=== PATIENT | male | born 1960 | race Caucasian/White ===

== ENCOUNTER → 2019-04-17 09:32 | Outpatient (BNVA) | payer MEDICAID, SELFPAY | PROVIDERS: PCP Nurse Practitioner Family; Visit Provider Nurse Practitioner | DX: M50.020 Cervical disc disorder with myelopathy, mid-cervical region, unspecified level (principal); M43.10 Spondylolisthesis, site unspecified; F17.210 Nicotine dependence, cigarettes, uncomplicated; Z79.899 Other long term (current) drug therapy | CPT/HCPCS: 99213; 99214 ==

== ENCOUNTER → 2019-06-14 08:44 | Outpatient (BNVA) | payer MEDICAID, SELFPAY | PROVIDERS: PCP Nurse Practitioner Family; Visit Provider Nurse Practitioner | DX: M50.020 Cervical disc disorder with myelopathy, mid-cervical region, unspecified level (principal); F17.210 Nicotine dependence, cigarettes, uncomplicated; Z79.891 Long term (current) use of opiate analgesic | CPT/HCPCS: 99213 ==

== ENCOUNTER 2019-07-10 13:26 | Emergency (ER) | payer MEDICAID, SELFPAY ==
[2019-07-10 13:42] VITALS: BP 158/93; PULSE 77; RESP 17; TEMP 36.9; O2SAT 95; BMI 35.7
--- NOTE | 2019-07-10 14:05 | XR_ITS ---
WS: [id number] PORTABLE CHEST HISTORY: cough/congestion COMPARISON: 11/09/2017 Pulmonary hyperexpansion. Normal vasculature. No pneumonia. No pleural effusion or pneumothorax. Cardiac size: Normal. Mediastinum/Aorta: Pulmonary arteries are enlarged. Similar to prior studies. No osseous abnormality seen. XR/XR chest 1V portable [id number] IMPRESSION: 1. Chronic emphysema. 2. No pneumonia. 3. Pulmonary hypertension.
[2019-07-10 14:26] VITALS: BP 147/111; PULSE 75; RESP 17; O2SAT 93
--- NOTE | 2019-07-10 14:43 | ED_ITS ---
HPI - URI/Sore Throat General: Chief Complaint: Upper Respiratory Infection Stated Complaint: cough Time Seen by Provider: 07/10/19 14:32 Source: patient Mode of arrival: ambulatory Limitations: no limitations History of Present Illness: HPI Narrative: Patient is a 58-year-old male presents to ED today with complaints of a nonproductive cough over the past 3 days. In addition patient tells me he has been having sinus pain/pressure with clear nasal drainage, puffy eyes, and sneezing. Patient has no history of allergies. He is an every day smoker. He has not been running fevers. He does not complain of any shortness of breath, difficulty breathing. No chest pains. He has not had any sick contacts. [facility] but is otherwise doing well with self quarantining. Reports low-grade fevers of 99.0. MD elicited complaint: cough, rhinorrhea, nasal congestion and sinus pain Pertinent past history: other (smoking) Onset (ago): day(s) Severity: mild Able to tolerate fluids by mouth: Yes Exacerbating factors: nothing Relieving factors: nothing Associated symptoms: Reports fever(s) (reports fever of 99.0) and nasal congestion; Deny abdominal pain, chills, chest pain, diarrhea, ear or mastoid pain, headache(s), nausea or vomiting Treatments prior to arrival: none Review of Systems Const: Reports: fever (reports fever of 99.0); Denies: chills, body aches, change in appetite, change in weight, fatigue, malaise or night sweats Eyes: Reports: other (eye puffiness); Denies: change in vision, blurry vision, blind spots, photophobia, eye discharge, eye redness, floaters or seeing flashes ENMT: Reports: nasal discharge and nasal congestion; Denies: throat pain, enlarged tonsils, painful swallowing, oral sores/lesions, ear pain, ear discharge or nasal obstruction Card: Denies: chest pain, palpitations, irregular heart rhythm, edema, swelling of feet/ankles, lightheadedness, syncope, pre-syncope, shortness of breath on exertion or shortness of breath when lying down Resp: Denies: shortness of breath, productive cough, non-productive cough, coughing up blood or chest congestion GI: Denies: abdominal pain, nausea, vomiting or diarrhea Musc: Denies: neck pain or back pain Skin/Breast: Denies: rash Neuro: Denies: headache PFSH ED PFSH: Medical History (Updated 07/10/19 @ 14:59 by CAROL Pendleton) CAD (coronary artery disease) Cervical disc disorder with myelopathy of mid-cervical region Diastolic CHF Dyslipidemia HTN (hypertension) Long-term use of high-risk medication PVC (premature ventricular contraction) Smoker Spondylolisthesis Surgical History Hx of decompression of ulnar nerve RIGHT Previous back surgery LOWER BACK PLUS YEARS AGO S/P carpal tunnel release RIGHT S/P cholecystectomy Social History Smoking and tobacco status: current every day smoker cigarettes Packs smoked per day: 0.5 Alcohol intake: never Physical Exam Const: COMMON NORMALS: no apparent distress, oriented x3, no limitations and alert NUTRITIONAL APPEARANCE: overweight HENMT: COMMON NORMALS: normocephalic, head/scalp atraumatic, hearing grossly normal bilaterally, external ears normal, EAC's normal, external nose normal, nasal mucous membranes and turbinates normal, moist oral mucous membranes and oropharynx normal HEAD & SCALP: normal to inspection, normocephalic and atraumatic FACE & SINUS: sinus tenderness frontal and maxillary NOSE: external nose normal, nares normal and nasal mucous membranes and turbinates normal EXTERNAL EAR: Yes external ears normal EXTERNAL AUDITORY CANAL: EAC's normal TYMPANIC MEMBRANE: unable to visualize TM (cerumen ) MOUTH: oral and palatal mucosa normal THROAT: posterior oropharynx normal, tonsils normal and uvula midline Eye: COMMON NORMALS: PERRL and EOMs intact bilaterally PUPIL: Yes PERRL OTHER: mild bilateral infraorbital puffiness Neck/C-Spine: COMMON NORMALS: full ROM, no lymphadenopathy and no meningeal signs Resp: COMMON NORMALS: normal respiratory effort and clear to auscultation bilaterally AUSCULTATION: clear to auscultation bilaterally Cardio: COMMON NORMALS: regular rate and regular rhythm RATE: regular rate RHYTHM: regular rhythm Neuro: COMMON NORMALS: oriented x3 SENSORIUM/ORIENTATION: Yes alert MENINGEAL SIGNS: Yes no meningeal signs Skin: COMMON NORMALS: no rashes or lesions noted GENERAL SKIN EXAM: no rashes or lesions noted Course Vital Signs: Vital signs: Vital Signs Temperature 98.4 F 07/10/19 13:42 Pulse Rate 66 07/10/19 15:08 Respiratory Rate 17 07/10/19 15:08 Blood Pressure 142/87 07/10/19 15:08 Pulse Oximetry 93 07/10/19 15:08 MDM - URI/Sore Throat Imaging Data^: CXR: Radiologist's impression: [address] [address] XRay Report Signed Patient: Crow Will Unit #: [id number] : 1960 Age/Sex: 58 / M ADM Date: 07/10/19 Loc: ER Room/Bed: Attending Dr: Ordering Provider/Ordering MD: Leia Rivera Date of Service: 07/10/19 Procedure(s): XR chest 1V portable [id number] Accession Number(s): [id number] Report Number: [id number] WS: [id number] PORTABLE CHEST HISTORY: cough/congestion COMPARISON: 11/09/2017 Pulmonary hyperexpansion. Normal vasculature. No pneumonia. No pleural effusion or pneumothorax. Cardiac size: Normal. Mediastinum/Aorta: Pulmonary arteries are enlarged. Similar to prior studies. No osseous abnormality seen. XR/XR chest 1V portable [id number] IMPRESSION: 1. Chronic emphysema. 2. No pneumonia. 3. Pulmonary hypertension. Dictated By: Ioana Ramírez DO Signed By: Ioana Ramírez DO Signed Date/Time: 145 DD/ 1449 Discharge Plan Discharge Patient Disposition: Home, Self-Care Clinical Impression: Allergic rhinitis Qualifiers: Allergic rhinitis trigger: other Allergic rhinitis seasonality: seasonal Qualified Code(s): J30.89 - Other allergic rhinitis Condition: Stable Prescriptions: New Claritin 10 mg tablet 10 mg PO DAILY Qty: 30 RF: 0 No Action allopurinol 300 mg tablet 300 mg PO BID RF: 0 cyclobenzaprine 10 mg tablet 10 mg PO TID PRN (Reason: muscle spasm) Qty: 90 RF: 3 lisinopril 20 mg tablet 20 mg PO BID Qty: 60 RF: 6 metoprolol tartrate 25 mg tablet 37.5 mg PO BID Qty: 90 RF: 6 aspirin [Adult Low Dose Aspirin] 81 mg tablet,delayed release (DR/EC) 81 mg PO DAILY Qty: 30 RF: 6 furosemide 40 mg tablet 40 mg PO QAM RF: 0 isosorbide mononitrate 30 mg tablet extended release 24 hr 30 mg PO QAM RF: 0 amlodipine 5 mg tablet 5 mg PO QDAY RF: 0 nitroglycerin [Nitrostat] 0.4 mg tablet, sublingual 0.4 mg SUBLINGUAL Q5M PRNRF: 0 potassium chloride [Klor-Con M20] 20 mEq tablet,ER particles/crystals 20 meq PO QDAY RF: 0 clopidogrel 75 mg tablet 75 mg PO QDAY RF: 0 oxycodone [Roxicodone] 15 mg tablet 15 mg PO TID PRN (Reason: pain) 30 Days Qty: 90 RF: 0 oxycodone 15 mg tablet 15 mg PO TID PRN (Reason: pain) 30 Days Qty: 90 RF: 0 tramadol 50 mg tablet 50 mg PO TID PRN (Reason: pain) Qty: 90 RF: 1 Discharge Orders: Discharge Order (Routine); Ordered 07/10/19 Ordered By: Leia Rivera Referrals: ANNMARIE [Other] Jose Ramon Salguero NP [Primary Care Provider] - Patient Instructions: Allergic Rhinitis (ED) Discharge Date/Time: 07/10/19 15:08 Coding Level of Care Code ED [employer] Fwd Exam Detailed
[2019-07-10 15:08] VITALS: BP 142/87; PULSE 66; RESP 17; O2SAT 93
== END 2019-07-10 15:08 | disposition home or self-care (01) ==
PROVIDERS: Emergency Provider Physician Assistant; PCP Nurse Practitioner Family
DX: J30.89 Other allergic rhinitis (principal); Z79.82 Long term (current) use of aspirin; I25.10 Atherosclerotic heart disease of native coronary artery without angina pectoris; I11.0 Hypertensive heart disease with heart failure; I50.30 Unspecified diastolic (congestive) heart failure; E78.5 Hyperlipidemia, unspecified; F17.210 Nicotine dependence, cigarettes, uncomplicated
CPT/HCPCS: 12345; 71045; 99281; 99282

== ENCOUNTER → 2019-07-31 09:37 | Outpatient (BNVA) | payer MEDICAID, SELFPAY | PROVIDERS: PCP Nurse Practitioner Family; Visit Provider Anesthesiology | DX: M50.020 Cervical disc disorder with myelopathy, mid-cervical region, unspecified level (principal); M54.9 Dorsalgia, unspecified; F17.210 Nicotine dependence, cigarettes, uncomplicated; Z79.891 Long term (current) use of opiate analgesic; Z71.6 Tobacco abuse counseling | CPT/HCPCS: 99214 ==

== ENCOUNTER → 2019-10-15 08:50 | Outpatient (BNVA) | payer MEDICAID, SELFPAY | PROVIDERS: PCP Nurse Practitioner Family; Visit Provider Nurse Practitioner | DX: M50.020 Cervical disc disorder with myelopathy, mid-cervical region, unspecified level (principal); F17.210 Nicotine dependence, cigarettes, uncomplicated; Z79.891 Long term (current) use of opiate analgesic; Z71.6 Tobacco abuse counseling | CPT/HCPCS: 99214 ==

== ENCOUNTER → 2019-12-06 09:35 | Outpatient (BNVA) | payer MEDICAID, SELFPAY | PROVIDERS: PCP Nurse Practitioner Family; Visit Provider Anesthesiology | DX: M50.020 Cervical disc disorder with myelopathy, mid-cervical region, unspecified level (principal); M43.10 Spondylolisthesis, site unspecified; F17.210 Nicotine dependence, cigarettes, uncomplicated; Z79.891 Long term (current) use of opiate analgesic | CPT/HCPCS: 99213; 99214 ==

== ENCOUNTER → 2020-02-11 10:44 | Outpatient (BNVA) | payer MEDICAID, SELFPAY | PROVIDERS: PCP Nurse Practitioner Family; Visit Provider Anesthesiology | DX: M50.020 Cervical disc disorder with myelopathy, mid-cervical region, unspecified level (principal); M43.10 Spondylolisthesis, site unspecified; F17.210 Nicotine dependence, cigarettes, uncomplicated; Z79.891 Long term (current) use of opiate analgesic | CPT/HCPCS: 99212; 99214 ==

== ENCOUNTER → 2020-04-08 08:27 | Outpatient (BNVA) | payer MEDICAID, SELFPAY | PROVIDERS: PCP Nurse Practitioner Family; Visit Provider Nurse Practitioner | DX: M50.020 Cervical disc disorder with myelopathy, mid-cervical region, unspecified level (principal); M43.10 Spondylolisthesis, site unspecified; F17.210 Nicotine dependence, cigarettes, uncomplicated; Z79.899 Other long term (current) drug therapy; Z79.891 Long term (current) use of opiate analgesic | CPT/HCPCS: 99213 ==

== ENCOUNTER → 2020-06-09 08:43 | Outpatient (BNVA) | payer MEDICAID, SELFPAY | PROVIDERS: PCP Nurse Practitioner Family; Visit Provider Nurse Practitioner | DX: M50.020 Cervical disc disorder with myelopathy, mid-cervical region, unspecified level (principal); M43.10 Spondylolisthesis, site unspecified; F17.210 Nicotine dependence, cigarettes, uncomplicated; Z79.899 Other long term (current) drug therapy; Z79.891 Long term (current) use of opiate analgesic; Z71.6 Tobacco abuse counseling | CPT/HCPCS: 99213; 99214 ==

== ENCOUNTER → 2020-08-04 08:37 | Outpatient (BNVA) | payer MEDICAID, SELFPAY | PROVIDERS: PCP Nurse Practitioner Family; Visit Provider Anesthesiology | DX: M50.020 Cervical disc disorder with myelopathy, mid-cervical region, unspecified level (principal); M43.10 Spondylolisthesis, site unspecified; F17.210 Nicotine dependence, cigarettes, uncomplicated; Z79.899 Other long term (current) drug therapy; Z79.891 Long term (current) use of opiate analgesic | CPT/HCPCS: 99213 ==

== ENCOUNTER → 2020-10-08 11:19 | Outpatient (BNVA) | payer MEDICAID, SELFPAY | PROVIDERS: PCP Nurse Practitioner Family; Visit Provider Nurse Practitioner | DX: M50.020 Cervical disc disorder with myelopathy, mid-cervical region, unspecified level (principal); M79.602 Pain in left arm; M43.10 Spondylolisthesis, site unspecified; F17.210 Nicotine dependence, cigarettes, uncomplicated; Z79.891 Long term (current) use of opiate analgesic | CPT/HCPCS: 99213; 99214; 99406 ==

== ENCOUNTER 2020-10-21 11:29 | Outpatient (CLI) | payer MEDICAID, SELFPAY ==
--- NOTE | 2020-10-21 11:43 | CT_ITS ---
WS: [id number] Exam: CT abdomen pelvis w con* [id number] Date/Time of Exam: 10/21/2020 11:46 AM Reason For Exam: RIGHT LOWER QUADRANT PAIN DLP: 879.[address] scans at [facility] use at least one of these dose optimization techniques: automat ed exposure control; mA and/or kV adjustment per patient size (includes targeted exams where dose is matched to clinical indication); or iterative reconstruction. There are 2 noncalcified soft tissue nodules both measuring slightly over 6 mm in the lateral aspect of the left lower lobe. The anterior most nodule is pleural-based. These are stable when compared to CTA of the chest performed on 10/26/2017 The right lung base is clear. Fatty liver is noted. The gallbl adder is surgically absent. The spleen is small. The stomach and pancreas appear normal. Normal adren al glands and kidneys. The abdominal aorta is normal in caliber. The portal vein and IVC are patent. No free air. No lymphadenopathy. Normal appendix visualized. Small bowel loops are normal in caliber. No significant large bowel abnormality is seen. No mass or adenopathy in the pelvis. The urinary eda dder is intact. No destructive bone lesions are seen. No significant abdominal wall defect. CT/CT abdomen pelvis w con* [id number] IMPRESSION: 1. 2 noncalcified nodules in the left lower lobe that are stable in appearance when compared to prior imaging. 2. No mass, lymphadenopathy or acute finding in the abdomen or pelvis. 3. Normal appendix.
[2020-10-21] MEDS: iohexol 300 mg/mL 50 mL Btl PO (11:46)
[2020-10-21] MEDS: iohexol 300 mg/mL 100 mL Btl IV (13:09)
== END 2020-10-21 11:30 | disposition home or self-care (01) ==
LOC: RADWPI 11:34
PROVIDERS: PCP Nurse Practitioner Family; Visit Provider Nurse Practitioner Family
DX: R10.31 Right lower quadrant pain (principal); R91.8 Other nonspecific abnormal finding of lung field
CPT/HCPCS: 74177; Q9967

== ENCOUNTER → 2020-12-10 13:11 | Outpatient (BNVA) | payer MEDICAID, SELFPAY | PROVIDERS: PCP Nurse Practitioner Family; Visit Provider Nurse Practitioner | DX: G89.29 Other chronic pain (principal); M50.020 Cervical disc disorder with myelopathy, mid-cervical region, unspecified level; M50.90 Cervical disc disorder, unspecified, unspecified cervical region; M43.10 Spondylolisthesis, site unspecified; R20.0 Anesthesia of skin; F17.200 Nicotine dependence, unspecified, uncomplicated; Z79.891 Long term (current) use of opiate analgesic; Z71.6 Tobacco abuse counseling | CPT/HCPCS: 99214 ==

== ENCOUNTER 2020-12-29 15:41 | Outpatient (CLI) | payer MEDICAID, SELFPAY ==
--- NOTE | 2020-12-29 16:00 | MR_ITS ---
WS: [id number] MRI CERVICAL SPINE NONCONTRAST HISTORY: Neck injury with pain and numbness RIGHT arm. COMPARISON: 12/16/2016 Technique: Multiplanar, multisequence noncontrast imaging of the cervical spine. Mild reversal normal cervical lordosis centered at C4. There is a small amount of reactive degenerati ve marrow edema in the RIGHT lateral endplates of C5 and C6. Disc spaces are very mildly desiccated, most significant at C5-C6. Signal within the cord is normal. Craniocervical junction, C1 and C2 relationship, odontoid process and soft tissues are normal. C2-C3: Normal. C3-C4: Less than 2 mm anterolisthesis of C3. Very mild narrowing of the foramen. No significant steno sis. C4-C5: Small foraminal osteophytes with very mild foraminal narrowing. No significant stenosis. C5-C6: Diffuse annular disc bulging and osteophytic ridging. Disc and osteophytes extend into the for amen bilaterally. There is mild encroachment and deformity of the ventral cervical cord and mild bila teral facet joint arthritis. Mild central with moderate bilateral foraminal narrowing. C6-C7: Mild annular disc bulging and osteophytic ridging. Central to RIGHT paracentral disc protrusio n without contact on the RIGHT thecal sac. Very mild central and RIGHT foraminal stenosis. Mild RIGHT facet joint arthritis. C7-T1: Normal. Paraspinal soft tissue are normal. MR/MR cervical spin wo con* [id number] IMPRESSION: 1. Moderate degenerative disc disease at C5-6 with reactive marrow edema in th e RIGHT lateral vertebral bodies. 2. Mild central with moderate bilateral foraminal stenosis at C5-6 with mild d eformity of the ventral cord by disc and osteophyte disease. 3. Central to RIGHT paracentral disc protrusion at C6-7 with mild central and RIGHT foraminal stenosis.
== END 2020-12-29 15:42 | disposition home or self-care (01) ==
LOC: RADSHAW 15:44
PROVIDERS: PCP Nurse Practitioner Family; Visit Provider Nurse Practitioner
DX: M50.322 Other cervical disc degeneration at C5-C6 level; R20.0 Anesthesia of skin; M48.02 Spinal stenosis, cervical region; M50.223 Other cervical disc displacement at C6-C7 level
CPT/HCPCS: 72141

== ENCOUNTER → 2021-02-10 12:32 | Outpatient (BNVA) | payer MEDICAID, SELFPAY | PROVIDERS: PCP Nurse Practitioner Family; Visit Provider Anesthesiology | DX: M50.020 Cervical disc disorder with myelopathy, mid-cervical region, unspecified level (principal); M43.10 Spondylolisthesis, site unspecified; F17.200 Nicotine dependence, unspecified, uncomplicated; Z79.891 Long term (current) use of opiate analgesic; Z79.899 Other long term (current) drug therapy; Z79.1 Long term (current) use of non-steroidal anti-inflammatories (NSAID) | CPT/HCPCS: 99213 ==

== ENCOUNTER → 2021-02-25 15:42 | Outpatient (BNVA) | payer MEDICAID, SELFPAY | PROVIDERS: PCP Nurse Practitioner Family; Visit Provider Orthopaedic Surgery | DX: M54.2 Cervicalgia (principal) | CPT/HCPCS: 72050 ==

== ENCOUNTER → 2021-04-09 13:36 | Outpatient (BNVA) | payer MEDICAID, SELFPAY | PROVIDERS: PCP Nurse Practitioner Family; Visit Provider Anesthesiology | DX: M50.020 Cervical disc disorder with myelopathy, mid-cervical region, unspecified level (principal); M47.22 Other spondylosis with radiculopathy, cervical region; M43.10 Spondylolisthesis, site unspecified; F17.200 Nicotine dependence, unspecified, uncomplicated; Z79.891 Long term (current) use of opiate analgesic; Z79.899 Other long term (current) drug therapy | CPT/HCPCS: 99213 ==

== ENCOUNTER 2021-04-21 12:37 | Emergency (ER) | payer MEDICAID, SELFPAY ==
[2021-04-21] VITALS (8 sets, daily range): BP systolic 110–145; BP diastolic 81–108; PULSE 69–89; RESP 16–22; TEMP 36.9; O2SAT 92–97; BMI 39.5
--- NOTE | 2021-04-21 12:58 | XR_ITS ---
WS: [id number] PORTABLE CHEST HISTORY: chest pain COMPARISON: 07/10/2019 Mild pulmonary hyperexpansion. There are scattered granulomata which are stable. No new mass or nodul e. There is very mild haziness over both lungs which is also present on the prior study related to ch ronic interstitial lung disease or mild chronic fluid overload. No pleural effusion or pneumothorax. Cardiac size: Normal. Mediastinum/Aorta: Mild atherosclerosis aorta. Ectatic thoracic aorta. Dilated RIGHT pulmonary artery . No osseous abnormality seen. XR/XR chest 1V portable [id number] IMPRESSION: 1. Chronic interstitial lung disease. No pneumonia. 2. Pulmonary hypertension.
--- NOTE | 2021-04-21 12:58 | ECG_ITS ---
[facility] Test Date: 2021-04-21 Pat Name: Crow Will Department: Room: Gender: Male Uniformer: : 1960 Requested By: Leia Rivera Order Number: [id number] Kevin MD: Jose R Rico M.D. 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 [email or web address]
[2021-04-21 14:14] LABS: Basophils # 0.1 10^3/uL (0.0-0.1); Basophils % 0.6 %; Eosinophils # 0.2 10^3/uL (0.0-0.8); Eosinophils % 1.4 %; Hematocrit 52.7 % (42.0-52.0); Hemoglobin 18.5 g/dL (11.7-16.6); Lymphocytes # 2.1 10^3/uL (0.8-4.8); Lymphocytes % 18.7 %; Mean Corpuscular HGB Conc 35.1 g/dL (30.0-36.0); Mean Corpuscular Hemoglobin 34.3 pg (28.0-34.0); Mean Corpuscular Volume 97.8 fl (80-94); Mean Platelet Volume 9.4 fL (7.4-10.4); Monocytes # 0.9 10^3/uL (0.2-0.9); Monocytes % 8.2 %; Neutrophils # 7.85 10^3/uL (1.8-7.7); Neutrophils % 70.7 %; Nucleated Red Blood Cells % 0 %; Platelet Count 271 10^3/cmm (130-400); Red Blood Count 5.39 10^6/uL (4.1-5.3); Red Cell Distribution Width 15.2 % (12.1-15.1); White Blood Count 11.1 10^3/uL (4.0-10.0)
[2021-04-21 14:40] LABS: Troponin(5th) Baseline 15 ng/L (0-15)
[2021-04-21 14:48] LABS: Alanine Aminotransferase 18 U/L (0-41); Albumin Level 3.8 g/dL (3.5-5.2); Alkaline Phosphatase 98 IU/L (40-130); Anion Gap 15.5 (5-19); Aspartate Amino Transferase 16 U/L (0-40); Blood Urea Nitrogen 11 mg/dL (8-23); Calcium 9.2 mg/dL (8.5-10.5); Carbon Dioxide 32 mmol/L (22-29); Chloride 96 mmol/L (98-107); Glomerular Filtration Rate 86.1 mL/min (90-130); Glucose 88 mg/dL (65-115); NT Pro B Type Natriuretic Pept 540 pg/mL (0-125); Osmolality Calculated 289 mOsm/kg (285-295); Potassium 3.5 mmol/L (3.5-5.1); Sodium 140 mmol/L (136-145); Total Bilirubin 0.5 mg/dL (0.15-1.2); Total Protein 6.8 g/dL (6.6-8.7)
--- NOTE | 2021-04-21 15:26 | ED_ITS ---
HPI - SOB/Dyspnea General: Chief Complaint: Shortness of Breath/Dyspnea Stated Complaint: HISTORY OF CHF, SOB, COUGH, CP Time Seen by Provider: 04/21/21 14:42 Source: patient Mode of arrival: ambulatory Limitations: no limitations History of Present Illness: HPI Narrative: This patient was a known history of coronary artery disease presents to our emergency department with a history of feeling more short winded over the past several days. He is also noted some blood tinged sputum from time to time. He is also noted swelling of his lower extremities. He states he thinks he has had less urine output over the last few days despite taking his normal doses of furosemide. He states he is able to lie flat in bed but does feel more short of breath with activity. He denies any consistent chest pain of his occasionally has couple of twinges of chest pain over the last couple of days but none of which have awoken him from sleep and none of which which feel like that which he had when he had his UT. He has been taking all his medications faithfully. He did have a preceding illness with some body aches and chills and then some nausea vomiting and diarrhea but that has resolved. [place] He is not been exposed to any known infectious disease. He still continues to smoke tobacco. He is unimmunized against COVID-19, influenza as we ll as has not received Pneumovax. He had a prior cholecystectomy as well as a lumbar fusion. MD elicited complaint: shortness of breath and cough Pertinent past history: COPD Context: recent illness Timing: intermittent Exacerbating factors: exertion Associated symptoms: Reports hemoptysis; Deny abdominal pain, fever(s), nausea, palpitations, polydipsia, polyuria, syncope or vomiting Related Data: Home oxygen amount: none Review of Systems Const: Denies: fever(s), chills or body aches Eyes: Denies: change in vision ENMT: Denies: throat pain or odynophagia Card: Reports: swelling of feet/ankles and dyspnea on exertion; Denies: palpitations, irregular heart rhythm or syncope Resp: Reports: dyspnea, wheezing and hemoptysis GI: Denies: abdominal pain, nausea, vomiting, hematemesis, hematochezia or melena : Denies: flank pain, difficulty urinating, dysuria or urinary frequency Skin/Breast: Denies: rash or erythema Neuro: Denies: headache(s), numbness in extremities or weakness in extremities Psych: Denies: depression or mood swings Endo: Denies: polyuria, polydipsia or tired all the time Jacob/Lymph: Reports: easy bruising PFSH ED PFSH: Medical History (Updated 04/21/21 @ 19:34 by Rl Earl DO) CAD (coronary artery disease) Cervical disc disorder with myelopathy of mid-cervical region Diastolic CHF Dyslipidemia Encounter for long-term opiate analgesic use HTN (hypertension) Long-term use of high-risk medication PVC (premature ventricular contraction) Smoker Spondylolisthesis Surgical History Hx of decompression of ulnar nerve RIGHT Previous back surgery LOWER BACK PLUS YEARS AGO S/P carpal tunnel release RIGHT S/P cholecystectomy Family History Other Lupus Rheumatoid arthritis Social History Alcohol intake: never History of recent travel: No Physical Exam Narrative: EXAM NARRATIVE: Patient appears comfortable. He is cooperative. He appears to be in no acute distress and answers questions in a goal-directed fashion without any conversat ional dyspnea. Const: COMMON NORMALS: no acute distress, patient oriented x3 and healthy appearing GENERAL APPEARANCE: comfortable HENMT: COMMON NORMALS: normocephalic HEAD & SCALP: normocephalic FACE & SINUS: normal facial exam Eye: COMMON NORMALS: Equal, round and reactive pupils present, EOMs intact bilaterally and conjunctivae normal CONJUNCTIVA: Yes conjunctivae normal PUPIL: Yes Equal, round and reactive pupils present Neck/C-Spine: COMMON NORMALS: full ROM, no lymphadenopathy, no meningeal signs, no JVD and No carotid bruits Chest: COMMONS NORMALS: normal inspection of the chest and normal palpation of entire chest wall Resp: COMMON NORMALS: normal respiratory effort, No retractions and No use of accessory muscles EFFORT & INSPECTION: Yes symmetric chest movement AUSCULTATION: no rales, no rhonchi and wheezes scattered wheezes Cardio: COMMON NORMALS: no JVD, regular rate, regular rhythm, No murmurs pres ent (Cardio) and Peripheral pulses 2+ throughout RATE: regular rate RHYTHM: regular rhythm PERIPHERAL PULSES: Peripheral pulses 2+ throughout GI: COMMON NORMALS: Soft to palpation, non-tender and No hepatosplenomegaly present INSPECTION: Yes central obesity PALPATION: Yes Soft to palpation and Yes No hepatosplenomegaly present PERCUSSION: normal to percussion : COMMON NORMALS: Yes no CVA tenderness BLADDER/KIDNEY EXAM: Yes no CVA tenderness Back/Pelvis: COMMON NORMALS: no CVA tenderness, thoracic and lumbar spine normal to inspection, no thoracic nor lumbar tenderness and thoraco-lumbar ROM normal Extremity: COMMON NORMALS: normal to inspection, full ROM, capillary refill normal and no calf tenderness NARRATIVE EXTREMITY EXAM: Has 1-2+ pretibial edema the lower anterior portion of the lower extremities. Neuro: COMMON NORMALS: patient oriented x3, moves all extremities, no focal motor deficits and no sensory deficits noted MENINGEAL SIGNS: Yes no me ningeal signs Course Reevaluation(s): Reevaluation #1: Read P examination of the chest reveals better air movement no wheezing at this time. We still have is response to Lasix pending as well as his COVID-19 swab. Workload has been extreme in the emergency department today so there is th erefore those tests have been a bit delayed. Reevaluation #2: Patient's had good response from Lasix and put out approximately 800 mL of clear urine. His COVID-19 test is negative. He subjectively states he feels quite a bit better. Repeat examination reveals no wheezing, crackles, accessory muscle use etc. His pulse oximetry on room air is approximately 94 to 97%. I think predominantly he is had fluid retention as the etiology to his subjective symptoms. He is diuresed well and is subjectively and objectively improved. No signs of pneumonia I feel like he is at low risk for pulmonary embolism etc. certainly does not represent ACS at this time. Going to have him increase his Lasix dose for the next 5 days, monitor his daily weight, and also provide him a metered-dose inhaler. We discussed return precautions and advised him to con tinue his other medications. He voiced understanding and was appreciative of care. Stable for discharge. Vital Signs: Vital signs: Vital Signs Temperature 98.5 F 04/21/21 12:48 Pulse Rate 76 04/21/21 18:15 Respiratory Rate 20 H 04/21/21 18:15 Blood Pressure 110/81 04/21/21 18:15 Pulse Oximetry 95 04/21/21 18:15 MDM - SOB/Dyspnea MDM Narrative Medical decision making narrative: Again no evidence of COVID-19, pneumonia, ACS, low risk of pulmonary embolus given anticoagulation and no other associated findings. Consistent with mild pulmonary congestion. Plan for discharge with cardiology follow-up and return precautions. Lab Data Result diagrams: 04/21/21 14:03 04/21/21 14:03 Labs: Radiology Impressions Chest X-Ray 04/21/21 12:58 IMPRESSION: 1. Chronic interstitial lung disease. No pneumonia. 2. Pulmonary hypertension. Laboratory Results WBC 11.1 10^3/uL (4.0-10.0) H 04/21/21 14:03 RBC 5.39 10^6/uL (4.1-5.3) H 04/21/21 14:03 Hgb 18.5 g/dL (11.7-16.6) H 04/21/21 14:03 Hct 52.7 % (42.0-52.0) H 04/21/21 14:03 MCV 97.8 fl (80-94) H 04/21/21 14:03 MCH 34.3 pg (28.0-34.0) H 04/21/21 14:03 MCHC 35.1 g/dL (30.0-36.0) 04/21/21 14:03 RDW 15.2 % (12.1-15.1) H 04/21/21 14:03 Plt Count 271 10^3/cmm (130-400) 04/21/21 14:03 MPV 9.4 fL (7.4-10.4) 04/21/21 14:03 Neut % (Auto) 70.7 % 04/21/21 14:03 Lymph % (Auto) 18.7 % 04/21/21 14:03 Titus % (Auto) 8.2 % 04/21/21 14:03 Eos % (Auto) 1.4 % 04/21/21 14:03 Baso % (Auto) 0.6 % 04/21/21 14:03 Neut # (Auto) 7.85 10^3/uL (1.8-7.7) H 04/21/21 14:03 Lymph # (Auto) 2.1 10^3/uL (0.8-4.8) 04/21/21 14:03 Titus # (Auto) 0.9 10^3/uL (0.2-0.9) 04/21/21 14:03 Eos # (Auto) 0.2 10^3/uL (0.0-0.8) 04/21/21 14:03 Baso # (Auto) 0.1 10^3/uL (0.0-0.1) 04/21/21 14:03 Nucleated RBC % (auto) 0 % 04/21/21 14:03 Nucleated RBCs # 0.0 /100WBC 04/21/21 14:03 Sodium 140 mmol/L (136-145) 04/21/21 14:03 Potassium 3.5 mmol/L (3.5-5.1) 04/21/21 14:03 Chloride 96 mmol/L (98-107) L 04/21/21 14:03 Carbon Dioxide 32 mmol/L (22-29) H 04/21/21 14:03 Anion Gap 15.5 (5-19) 04/21/21 14:03 BUN 11 mg/dL (8-23) 04/21/21 14:03 Creatinine 0.9 mg/dL (0.7-1.2) 04/21/21 14:03 GFR Calculation 86.1 mL/min (90-130) L 04/21/21 14:03 Glucose 88 mg/dL (65-115) 04/21/21 14:03 Calculated Osmolality 289 mOsm/kg (285-295) 04/21/21 14:03 Calcium 9.2 mg/dL (8.5-10.5) 04/21/21 14:03 Total Bilirubin 0.5 mg/dL (0.15-1.2) 04/21/21 14:03 AST 16 U/L (0-40) 04/21/21 14:03 ALT 18 U/L (0-41) 04/21/21 14:03 Alkaline Phosphatase 98 IU/L (40-130) 04/21/21 14:03 Troponin T Baseline 15 ng/L (0-15) 04/21/21 14:03 Troponin T 120 Minute 14.71 ng/L (0-15) 04/21/21 16:30 Delta Troponin T 0.29 ABS# (0-10) 04/21/21 16:30 NT-Pro-B Natriuret Pep 540 pg/mL (0-125) H 04/21/21 14:03 Total Protein 6.8 g/dL (6.6-8.7) 04/21/21 14:03 Albumin 3.8 g/dL (3.5-5.2) 04/21/21 14:03 Globulin 3.0 g/dL (1.3-4.6) 04/21/21 14:03 SARS-CoV-2 Ag (Rapid) Negative (Negative) 04/21/21 18:35 EKG Data EKG 1: Interpretation: EKG at 1531 reveals normal sinus rhythm with a ventricular rate of 68 bpm. Normal intervals extreme leftward axis of -60 degrees. Consistent with right bundle branch block. No acute ST-T wave changes at this time. Discharge Plan Discharge Patient Disposition: Home Clinical Impression: Congestive heart failure, Smoker Condition: Stable Prescriptions: New Ventolin HFA 90 mcg/actuation HFA aerosol inhaler 2 inh inhalation Q8H PRN (Reason: shortness of breath or wheezing) Qty: 8.5 0RF No Action allopurinol 300 mg tablet 300 mg PO BID 0RF bupropion HCl [Wellbutrin XL] 300 mg tablet extended release 24 hr 300 mg PO .1 day 0RF oxycodone 15 mg tablet 15 mg PO TID PRN (Reason: pain) 30 Days Qty: 90 0RF Rx Instructions: Fill on or after 04/14/21 oxycodone [Roxicodone] 15 mg tablet 15 mg PO TID PRN (Reason: pain) 30 Days Qty: 90 0RF Rx Instructions: Fill on or after 05/14/21 tramadol 50 mg tablet 100 mg PO TID PRN (Reason: pain) 30 Days Qty: 180 0RF Rx Instructions: Fill on or after 05/11/21 cyclobenzaprine 10 mg tablet 10 mg PO TID PRN (Reason: muscle spasm) Qty: 90 1RF aspirin [Adult Low Dose Aspirin] 81 mg tablet,delayed release (DR/EC) 81 mg PO DAILY Qty: 90 2RF nitroglycerin [Nitrostat] 0.4 mg tablet, sublingual 0.4 mg SUBLINGUAL Q5M PRN (Reason: chest pain) Qty: 1 4RF Rx Instructions: Take one tab sublingual for chest pain every 5 mins up to 3 tabs total furosemide 40 mg tablet 40 mg PO BID Qty: 180 2RF Rx Instructions: Take at 8 am and 1 pm with potassium 20 meq amlodipine 5 mg tablet 5 mg PO QDAY Qty: 90 2RF potassium chloride [Klor-Con M20] 20 mEq tablet,ER particles/crystals 20 meq PO BID Qty: 180 2RF lisinopril 20 mg tablet 20 mg PO BID Qty: 180 2RF isosorbide mononitrate 30 mg tablet extended release 24 hr 30 mg PO QAM Qty: 90 3RF clopidogrel 75 mg tablet 75 mg PO QDAY Qty: 90 3RF magnesium 200 mg tablet 400 mg PO DAILY 0RF metoprolol tartrate 25 mg tablet 50 mg PO BID Qty: 270 2RF Discharge Orders: Discharge ED (Routine); Ordered 04/21/21 Ordered By: Rl Earl Referrals: Jose Ramon Salguero NP [Primary Care Provider] - Discharge Diet: Low Salt Discharge Activity: Increase activity as tolerated Patient Instructions: Opioid Safety Activity Restrictions/Additional Instructions: Take an additional Lasix pill (80 mg) total in morning and then 40 mg or 1 pill in the afternoon for 5 days. After 5 days resume your usual dose of 1 pill or 40 mg in the morning and 1 pill or 40 mg in the evening. You may use the inhaler as prescribed for any wheezing. Should you have any persistent shortness of breath, fevers, chest pain or other concerning symptoms return to the emergency department immediately. Do not smoke cigarettes. Coding Level of Care Code ED Transportation Planning Technician for Lila Don Exam Comprehensive
[2021-04-21] MEDS: ipratropium-albuterol 3 mL Neb INHALATION (16:11)
[2021-04-21 17:13] LABS: Troponin 5 2HR 14.71 ng/L (0-15)
[2021-04-21 17:50] LABS: Troponin 5 2HR Delta 0.29 ABS# (0-10)
[2021-04-21] MEDS: FUROsemide 10 mg/mL SDV 4mL 40 MG IVP (18:25)
--- NOTE | 2021-04-21 18:58 | ECG_ITS ---
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 Measurements Intervals [place] Rate: 68 P: 81 [place]: 192 QRS: -60 QRSD: 146 T: 77 QT: 446 QTc: 475 Interpretive Statements SINUS RHYTHM LEFT AXIS DEVIATION [QRS AXIS < -30] RIGHT BUNDLE BRANCH BLOCK [120+ ms QRS DURATION, UPRIGHT V1, 40+ ms S IN I/aVL/V4/V5/V6] Compared to ECG 04/21/2021 12:57:15 Left-axis deviation now present Right-axis deviation no longer present Electronically Signed On 04-22-2021 0:12:49 SALES AND MARKETING ASSOCIATE by Jose R Rico M.D. [id number]
[2021-04-21 19:06] LABS: SARS Covid-2 Antigen Negative (Negative)
== END 2021-04-21 20:15 | disposition home or self-care (01) ==
PROVIDERS: Physician Assistant; Emergency Provider Emergency Medicine; PCP Nurse Practitioner Family
DX: I11.0 Hypertensive heart disease with heart failure (principal); I50.9 Heart failure, unspecified; F17.210 Nicotine dependence, cigarettes, uncomplicated; Z79.82 Long term (current) use of aspirin; Z79.02 Long term (current) use of antithrombotics/antiplatelets; I25.10 Atherosclerotic heart disease of native coronary artery without angina pectoris; E78.5 Hyperlipidemia, unspecified
CPT/HCPCS: 71045; 80053; 83880; 84484; 85025; 87426; 93005; 94640; 96374; 99284; J1940

== ENCOUNTER 2021-07-08 09:03 | Outpatient (CLI) | payer MEDICAID, SELFPAY ==
[2021-07-08 09:17] VITALS: BMI 39.6
--- NOTE | 2021-07-08 09:22 | ECG_ITS ---
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 Interpretive Statements NAME OF STUDY: LEXISCAN SESTAMIBI STRESS TEST INDICATION: Chest Pain PROCEDURE: At the baseline, the blood pressure was 148/95 mmHg with a heart rate of 75 bpm. The electrocardiogram showed sinus rhythm with frequent isolated PVCs. Marked left axis deviation, right bundle branch block. The Lexiscan was infused over a period of 20 seconds. A total of 0.4 milligrams of Lexiscan was infused. The stress phase was continued for a total of 5 minutes. Heart rate at the end of the stress phase was 78 bpm with a blood pressure of 128/75 mmHg. The EKG at the peak infusion revealed sinus rhythm with no significant ST-T wave changes. The study was terminated due to protocol completion. Sestamibi was injected 20 seconds after the Lexiscan infusion. Blood pressure at the end of the recovery phase was 119/81 mmHg with a heart rate of 79 beats per minute. CONCLUSION: 1. No significant EKG changes with the LexiScan infusion. 2. No LexiScan induced chest pain or cardiac arrhythmia. 3. Normal blood pressure and heart rate response. 4. Sestamibi/sestamibi perfusion scan pending; see separate report. Electronically Signed On 07-15-2021 17:23:31 CDT by Svitlana Casey M.D. [id number]
--- NOTE | 2021-07-08 09:23 | NMCV_ITS ---
NM ed perf SPECT r/s* [id number] Crow Will Age: 60 Gender: M : 1960 Exam Date: 07/08/2021 10:15 Ordering Phys: Svitlana Casey MD ([email or web address]) Technologist: ESTRELLA Silva Exam Location: [facility] Indications: SHORTNESS OF BREATH STRESS TEST Please [facility] for [facility] IMAGE PROTOCOL Rest/Stress 1 Lexiscan Day Radiopharmaceutical Dose (mCi) Administration Site Administered by Rest: Tc-99m 10.9 IV ESTRELLA Blancas Sestamibi Stress:Tc-99m 32.3 IV ESTRELLA Blancas Sestamibi Rest: 60 Discovery 630 Stress: 30 Discovery 630 0.4mg Lexiscan. Images obtained in supine and prone position. SPECT RESULTS Technical Quality: Excellent Raw Data Analysis: Normal Image Corrections: No attenuation or motion correction applied Summed Stress Score: 15 Summed Rest Score: 18 Summed Difference Score: 0 PERFUSION FINDINGS Large size perfusion abnormality of moderate to severe severity of basal to apical inferior, basal to mid inferolateral apical lateral apical septal and apical prieto on rest images with improved tracer uptake in apical septal and inferior prieto on stress images. FUNCTIONAL RESULTS (calculated via Gated SPECT) Stress Image LV EF (%): 62 Stress EDV (mL):132 TID: 0.94 Stress ESV (mL):50 FUNCTIONAL FINDINGS: The left ventricle is normal in size. Transient Ischemia Dilatation of 0.94. The left ventricular ejection fraction is normal with a value of 62%. There is possibly mild hypokinesis of basal inferior wall. Mildly increased end-diastolic volume. IMPRESSIONS 1. Large sizde perfusion abnormality of inferior and inferolateral prieto. There is improved tracer uptake on stress images. This may represent attenuation artifact or old myocardial infarction in right coronary artery territory. 2. Overall left ventricular systolic function is normal with possibly mild hypokinesis of basal inferior wall. 3. EKG portion of the study will be reported separately. 4. No coronary ischemia based on the study. Svitlana Casey MD (Electronically Signed) Final Date: 13 July 2021 17:30 S
[2021-07-08 11:23] VITALS: BP 118/80; PULSE 82
[2021-07-08] MEDS: regadenoson 0.4 Mg/5 ml Syringe IVP (11:23)
== END 2021-07-08 09:04 | disposition home or self-care (01) ==
LOC: CDL 09:05
PROVIDERS: PCP Nurse Practitioner Family; Visit Provider Internal Medicine Cardiovascular Disease
DX: R07.9 Chest pain, unspecified (principal); R06.02 Shortness of breath
CPT/HCPCS: 78452; 93017; A9500; J2785

== ENCOUNTER → 2021-07-13 14:21 | Outpatient (BNVA) | payer MEDICAID, SELFPAY | PROVIDERS: PCP Nurse Practitioner Family; Visit Provider Podiatrist Foot & Ankle Surgery | DX: B35.3 Tinea pedis (principal); Z98.890 Other specified postprocedural states; F17.210 Nicotine dependence, cigarettes, uncomplicated | CPT/HCPCS: 99213 ==

== ENCOUNTER → 2021-09-02 10:09 | Outpatient (BNVA) | payer MEDICAID, SELFPAY | PROVIDERS: PCP Nurse Practitioner Family; Visit Provider Podiatrist Foot & Ankle Surgery | DX: L60.3 Nail dystrophy (principal); L60.8 Other nail disorders; L60.0 Ingrowing nail | CPT/HCPCS: 11750 ==

== ENCOUNTER 2021-09-07 20:00 | Outpatient (CLI) | payer MEDICAID, SELFPAY | END 2021-09-07 20:01 | disposition home or self-care (01) | LOC: SLEEP 09-08 08:16 | PROVIDERS: PCP Nurse Practitioner Family; Visit Provider Anesthesiology Pain Medicine | DX: G47.33 Obstructive sleep apnea (adult) (pediatric) (principal) | CPT/HCPCS: 95811 ==

== ENCOUNTER → 2021-10-05 13:38 | Outpatient (BNVA) | payer MEDICAID, SELFPAY | PROVIDERS: PCP Nurse Practitioner Family; Visit Provider Internal Medicine Pulmonary Disease | DX: G47.33 Obstructive sleep apnea (adult) (pediatric) (principal); I25.10 Atherosclerotic heart disease of native coronary artery without angina pectoris; F17.210 Nicotine dependence, cigarettes, uncomplicated; I50.32 Chronic diastolic (congestive) heart failure; R06.02 Shortness of breath; T78.40XA Allergy, unspecified, initial encounter; Z12.2 Encounter for screening for malignant neoplasm of respiratory organs; Z71.6 Tobacco abuse counseling; I45.89 Other specified conduction disorders; I49.3 Ventricular premature depolarization; I49.1 Atrial premature depolarization | CPT/HCPCS: 82785; 85025; 86003; 93270; 99204 ==

== ENCOUNTER → 2021-11-18 10:13 | Outpatient (BNVA) | payer MEDICAID, SELFPAY | PROVIDERS: PCP Nurse Practitioner Family; Visit Provider Internal Medicine Pulmonary Disease | DX: G47.33 Obstructive sleep apnea (adult) (pediatric) (principal); I25.10 Atherosclerotic heart disease of native coronary artery without angina pectoris; Z12.2 Encounter for screening for malignant neoplasm of respiratory organs; I50.32 Chronic diastolic (congestive) heart failure; T78.40XA Allergy, unspecified, initial encounter; Z71.6 Tobacco abuse counseling; J96.12 Chronic respiratory failure with hypercapnia; F17.210 Nicotine dependence, cigarettes, uncomplicated; E66.9 Obesity, unspecified; Z68.41 Body mass index [BMI] 40.0-44.9, adult | CPT/HCPCS: 99214 ==

== ENCOUNTER 2021-12-30 20:00 | Outpatient (CLI) | payer MEDICAID, SELFPAY | END 2021-12-30 20:01 | disposition home or self-care (01) | LOC: SLEEP 12-31 06:57 | PROVIDERS: PCP Nurse Practitioner Family; Visit Provider Internal Medicine Pulmonary Disease | DX: G47.33 Obstructive sleep apnea (adult) (pediatric) (principal) | CPT/HCPCS: 95811 ==

== ENCOUNTER 2022-02-01 08:04 | Outpatient (CLI) | payer MEDICAID, SELFPAY ==
--- NOTE | 2022-02-01 08:09 | CT_ITS ---
WS: [id number] LDCT LUNG CANCER SCREENING TECHNIQUE: Noncontrast CT of the chest with coronal and sagittal reformatted images. CLINICAL INFORMATION: lung screening COMPARISON: CTA chest 2018 DLP: 84.29 mGy.cm DIvol: Mean CTDIvol: 1.60 (mGy) All CT scans at [facility] use at least one of these dose optimization techniques: automat ed exposure control; mA and/or kV adjustment per patient size (includes targeted exams where dose is matched to clinical indication); or iterative reconstruction. FINDINGS: 5 mm noncalcified nodule RIGHT lower lobe laterally. Additional small noncalcified nodule R IGHT lower lobe laterally measuring 4 mm. Slight nodularity along the RIGHT fissure. 4 mm noncalcifie d nodule RIGHT upper lobe anteriorly. Additional subcentimeter noncalcified nodules LEFT upper lobe m easuring up to 4 mm. A few subcentimeter subpleural nodules LEFT lower lobe measuring up to 5 mm. Chronic centrilobular emphysematous changes. No acute pulmonary infiltrates. No focal pneumonia or pl eural fluid. Aortic calcification. Coronary calcification. Coronary artery stents. No axillary lympha denopathy. No mediastinal or hilar lymphadenopathy. Heterogeneous dense liver parenchyma. Correlation with liver function tests. Cholecystectomy clips. Adrenal glands are normal. Tiny esophageal hiatal hernia. Hypertrophic changes thoracic spine. CT/CT lung screening [id number] IMPRESSION:Heterogeneous dense liver parenchyma. Correlation with liver function tests. LUNG-RADS: 2S-Benign Appearance or Behavior with Significant Findings FOLLOW UP: 12 Month: Continue annual screening with LDCT
== END 2022-02-01 08:05 | disposition home or self-care (01) ==
LOC: RAD 08:05
PROVIDERS: PCP Nurse Practitioner Family; Visit Provider Internal Medicine Pulmonary Disease
DX: Z12.2 Encounter for screening for malignant neoplasm of respiratory organs (principal); F17.210 Nicotine dependence, cigarettes, uncomplicated
CPT/HCPCS: 71271

== ENCOUNTER → 2022-02-04 10:59 | Outpatient (BNVA) | payer MEDICAID, SELFPAY | PROVIDERS: PCP Nurse Practitioner Family; Visit Provider Internal Medicine Cardiovascular Disease | DX: R06.02 Shortness of breath (principal); I49.3 Ventricular premature depolarization; I11.0 Hypertensive heart disease with heart failure; I50.32 Chronic diastolic (congestive) heart failure; I25.10 Atherosclerotic heart disease of native coronary artery without angina pectoris; E78.5 Hyperlipidemia, unspecified; F17.210 Nicotine dependence, cigarettes, uncomplicated | CPT/HCPCS: 93005; 99214 ==

== ENCOUNTER 2022-02-28 06:48 | Outpatient (CLI) | payer MEDICAID, SELFPAY ==
--- NOTE | 2022-02-28 07:15 | USCV_ITS ---
Crow Will Age: 61 Gender: M : 1960 Exam Date: 02/28/2022 07:36 Ordering Phys: Svitlana Casey MD ([email or web address]) Technologist: Exam [place] [facility] Indication: hx of mi BP: 130 / 80 HR: 66 Rhythm: Sinus Technical Quality: Adequate MEASUREMENTS (Male / Female) Normal Values 2D ECHO LV Diastolic Diameter PLAX 4.1 cm 4.2 - 5.9 / 3.9 - 5.3 cm LV Systolic Diameter PLAX 2.7 cm IVS Diastolic Thickness 0.9 cm 0.6 - 1.0 / 0.6 - 0.9 cm IVS Systolic Thickness 1.5 cm LVPW Diastolic Thickness 1.3 cm 0.6 - 1.0 / 0.6 - 0.9 cm LVPW Systolic Thickness 1.3 cm LVOT Diameter 2.1 cm LV Ejection Fraction 2D Teich 64.8 % LA Diameter 4.6 cm Aorta at Sinotubular Diameter 2.8 cm IVC Diameter 1.5 cm M-MODE Aortic Annulus Diameter 4.2 cm LA Ao Ratio MM 1.1 MV E Point Septal Separation 0.8 cm DOPPLER AV Peak Velocity 160.0 cm/s LVOT Peak Velocity 89.0 cm/s AV Area Cont Eq vti 2.3 cm squared AV Area Cont Eq pk 1.9 cm squared MV Area PHT 5.0 cm squared Mitral E to A Ratio 0.8 MV E' Velocity 42.0 cm/s Mitral E to MV E' Ratio 12.9 Mitral E to LV E' Lateral Ratio 9.8 Mitral E to LV E' Septal Ratio 19.0 TR Peak Velocity 313.7 cm/s TR Peak Gradient 39.4 mmHg TV Peak E Velocity 102.0 cm/s Right Atrial Pressure 3.0 mmHg Pulmonary Artery Systolic Pressu 42.4 mmHg RV Acceleration Time 0.2 s FINDINGS Left Ventricle Normal left ventricular size, systolic function and wall thickness. Left ventricular ejection fraction is estimated at 60 %. There is hypokinesis of basal to mid inferior wall. Normal diastolic function. Right Ventricle Normal right ventricular size and systolic function. Right ventricular systolic pressure 52 mmHg. Right Atrium Normal right atrial size. Left Atrium Normal left atrial size. Mitral Valve Structurally normal mitral valve. No mitral valve stenosis. Trace mitral valve regurgitation. Aortic Valve Structurally normal trileaflet aortic valve. No aortic valve stenosis. No aortic valve regurgitation. Tricuspid Valve Structurally normal tricuspid valve. No tricuspid valve stenosis. No significant tricuspid valve regurgitation. Pulmonic Valve Structurally normal pulmonic valve. Trace pulmonary valve regurgitation. Pericardium No pericardial effusion. Aorta Normal size aortic root and proximal ascending aorta. IVC Normal IVC dimension with >50% respiratory change of the inferior vena cava. CONCLUSIONS 1. Normal left ventricular size, systolic function and wall thickness. Left ventricular ejection fraction is estimated at 60 %. There is hypokinesis of basal to mid inferior wall. Normal diastolic function. 2. Normal right ventricular size and systolic function. 3. No significant valvular abnormality. 4. Pulmonary artery pressure estimated at 52 mm Hg. 5. When compared to study dated 10/31/2017, there may not have been any significant change. Svitlana Casey MD (Electronically Signed) Final Date: 05 March 2022 14:48 S
== END 2022-02-28 06:49 | disposition home or self-care (01) ==
LOC: RAD 06:49
PROVIDERS: PCP Nurse Practitioner Family; Visit Provider Internal Medicine Cardiovascular Disease
DX: I25.10 Atherosclerotic heart disease of native coronary artery without angina pectoris (principal); I49.3 Ventricular premature depolarization; I50.32 Chronic diastolic (congestive) heart failure; R06.02 Shortness of breath; I25.2 Old myocardial infarction
CPT/HCPCS: 93306

== ENCOUNTER → 2022-03-11 08:18 | Outpatient (BNVA) | payer MEDICAID, SELFPAY | PROVIDERS: PCP Nurse Practitioner Family; Visit Provider Internal Medicine Pulmonary Disease | DX: J44.9 Chronic obstructive pulmonary disease, unspecified (principal); G47.33 Obstructive sleep apnea (adult) (pediatric); I25.10 Atherosclerotic heart disease of native coronary artery without angina pectoris; Z71.6 Tobacco abuse counseling; I50.32 Chronic diastolic (congestive) heart failure; F17.210 Nicotine dependence, cigarettes, uncomplicated; T78.40XD Allergy, unspecified, subsequent encounter | CPT/HCPCS: 99214 ==

== ENCOUNTER 2022-03-16 10:01 | Outpatient (CLI) | payer MEDICAID, SELFPAY | END 2022-03-16 10:02 | disposition home or self-care (01) | LOC: RT 10:02 | PROVIDERS: PCP Nurse Practitioner Family; Visit Provider Internal Medicine Pulmonary Disease | DX: R06.02 Shortness of breath (principal) | CPT/HCPCS: 94060; 94618; 94726; 94729; J7613 ==

== ENCOUNTER → 2022-05-13 08:47 | Outpatient (BNVA) | payer MEDICAID, SELFPAY | PROVIDERS: PCP Nurse Practitioner Family; Visit Provider Nurse Practitioner Family | DX: I25.10 Atherosclerotic heart disease of native coronary artery without angina pectoris (principal); I49.3 Ventricular premature depolarization; I11.0 Hypertensive heart disease with heart failure; I50.32 Chronic diastolic (congestive) heart failure; I49.1 Atrial premature depolarization | CPT/HCPCS: 93005; 93242; 99214 ==

== ENCOUNTER 2022-06-27 19:59 | Outpatient (CLI) | payer MEDICAID, SELFPAY ==
--- NOTE | 2022-06-27 20:11 | XRR_ITS ---
PROCEDURE INFORMATION: Exam: XR Chest Exam date and time: 06/27/2022 8:21 PM Age: 61 years old Clinical indication: Shortness of breath; Additional info: Cough and dyspnea. Copd. TECHNIQUE: Imaging protocol: Radiologic exam of the chest. Views: 2 views. COMPARISON: CT lung screening [id number] 02/01/2022 8:30 AM FINDINGS: Lungs: Unremarkable. No consolidation. Pleural spaces: Unremarkable. No pleural effusion. No pneumothorax. Heart/Mediastinum: Stable heart size. Bones/joints: Stable bones. XR/XR chest 2V* [id number] IMPRESSION: No acute findings.
== END 2022-06-27 20:00 | disposition home or self-care (01) ==
LOC: RAD 20:00
PROVIDERS: PCP Nurse Practitioner Family; Visit Provider Nurse Practitioner Family
DX: R06.00 Dyspnea, unspecified (principal); J44.9 Chronic obstructive pulmonary disease, unspecified; R05.9 Cough, unspecified
CPT/HCPCS: 71046

== ENCOUNTER 2022-06-28 15:42 | Emergency (ER) | payer MEDICAID, SELFPAY ==
[2022-06-28 15:47] VITALS: BP 148/82; PULSE 73; RESP 18; TEMP 36.1; O2SAT 86; BMI 41.0
--- NOTE | 2022-06-28 16:19 | ECG_ITS ---
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 Measurements Intervals [place] Rate: 65 P: 23 [place]: 192 QRS: 249 QRSD: 150 T: 10 QT: 454 QTc: 475 Interpretive Statements SINUS RHYTHM WITH OCCASIONAL ECTOPIC PREMATURE COMPLEXES INDETERMINATE AXIS RIGHT BUNDLE BRANCH BLOCK [120+ ms QRS DURATION, UPRIGHT V1, 40+ ms S IN I/aVL/V4/V5/V6] Compared to ECG 04/21/2021 15:31:30 Indeterminate axis now present Left-axis deviation no longer present Electronically Signed On 06-28-2022 17:27:24 CDT by Carlos Alberto Loaiza M.D. [id number]
--- NOTE | 2022-06-28 16:22 | W.ED.SOB ---
HPI - SOB/Dyspnea General: Chief Complaint: Shortness of Breath/Dyspnea Stated Complaint: clinic sent for low O2 Time Seen by Provider: 06/28/22 15:47 History of Present Illness: HPI Narrative: Patient presents to the ER with complaints of shortness of breath. Patient states he is on 2 L of oxygen at all times. During the last week or so has been getting more short of breath than normal where he went to his primary care docs he had a COVID test and influenza test a chest x-ray they were all negative as well as a antibiotic shot and a steroid shot yesterday and is worsened even more today. Patient has had a fever of up to 101 degrees, productive cough with mucus, and felt lightheaded and dizzy. Patient states last night his oxygen was all the way down to the 60s when he was on room air and when he put his oxygen on it went up but never did get above 90. MD elicited complaint: shortness of breath and cough Pertinent past history: COPD Onset (ago): week(s) (1 week) Timing: constant and progressively worsening Severity: moderate Exacerbating factors: coughing Relieving factors: nothing Known history of: COPD and other (Smoker) Associated symptoms: Reports chest congestion, cough, fever(s) and lightheadedness; Deny abdominal pain, chest pain, nausea, palpitations, polydipsia, polyuria or vomiting Treatment prior to arrival: oxygen Review of Systems General: Reports: 10 or more systems reviewed and unremarkable except in HPI and below Const: Reports: fever(s) and chills Eyes: Denies: change in vision ENMT: Denies: throat pain or odynophagia Card: Reports: lightheadedness; Denies: chest pain, palpitations or irregular heart rhythm Resp: Reports: dyspnea, productive cough and chest congestion GI: Denies: abdominal pain, nausea, vomiting or diarrhea : Denies: flank pain Musc: Denies: neck pain or back pain Skin/Breast: Denies: rash or pruritus Neuro: Denies: headache(s), numbness in extremities or weakness in extremities Psych: Denies: anxiety or depression Endo: Denies: polyuria or polydipsia PFSH ED PFSH: Medical History CAD (coronary artery disease) Cervical disc disorder with myelopathy of mid-cervical region Diastolic CHF Dyslipidemia Encounter for long-term opiate analgesic use HTN (hypertension) Long-term use of high-risk medication PVC (premature ventricular contraction) Smoker Spondylolisthesis Surgical History Hx of decompression of ulnar nerve RIGHT Previous back surgery LOWER BACK PLUS YEARS AGO S/P carpal tunnel release RIGHT S/P cholecystectomy Family History Other Lupus Rheumatoid arthritis Social History Smoking and tobacco status: current every day smoker cigarettes Packs smoked per day: 2 Years cigarettes smoked: 48 [ Other cigarette details: Started at age 13] Alcohol intake: never Physical Exam Const: COMMON NORMALS: no acute distress, average body habitus, patient oriented x3, no limitations, healthy appearing, alert and well nourished HENMT: COMMON NORMALS: normocephalic, atraumatic, hearing grossly normal bilaterally, external ears normal, Normal external nose present and moist oral mucous membranes HEAD & SCALP: normocephalic and atraumatic NOSE: Normal external nose present EXTERNAL EAR: Yes external ears normal Eye: COMMON NORMALS: Equal, round and reactive pupils present, EOMs intact bilaterally, conjunctivae normal and no scleral icterus CONJUNCTIVA: Yes conjunctivae normal PUPIL: Yes Equal, round and reactive pupils present Neck/C-Spine: COMMON NORMALS: full ROM, no lymphadenopathy, supple, no meningeal signs, no JVD and Thyroid normal THYROID: Thyroid normal Lymph: LYMPHATIC: no lymphadenopathy noted Chest: COMMONS NORMALS: normal inspection of the chest and normal palpation of entire chest wall Resp: COMMON NORMALS: normal respiratory effort, No retractions and No use of accessory muscles AUSCULTATION: diminished lung sounds Cardio: COMMON NORMALS: no JVD, regular rate and regular rhythm RATE: regular rate RHYTHM: regular rhythm GI: COMMON NORMALS: Normal to inspection, nondistended, normoactive bowel sounds present, Soft to palpation, non-tender, No hepatosplenomegaly present and no masses PALPATION: Yes Soft to palpation and Yes No hepatosplenomegaly present : COMMON NORMALS: Yes no CVA tenderness BLADDER/KIDNEY EXAM: Yes no CVA tenderness Back/Pelvis: COMMON NORMALS: no CVA tenderness Extremity: COMMON NORMALS: normal to inspection Neuro: COMMON NORMALS: patient oriented x3, CN's II-XII intact bilaterally, moves all extremities, no focal motor deficits and no sensory deficits noted SENSORIUM/ORIENTATION: Yes alert MENINGEAL SIGNS: Yes no meningeal signs Psych: COMMON NORMALS: mental status grossly normal, Normal thought process present, cooperative, normal affect and speech normal SPEECH: Yes normal speech THOUGHT PROCESS: Normal thought process present Course Vital Signs: Vital signs: Vital Signs Temperature 96.9 F L 06/28/22 15:47 Pulse Rate 73 06/28/22 18:04 Respiratory Rate 18 06/28/22 15:47 Blood Pressure 122/77 06/28/22 18:04 Pulse Oximetry 90 06/28/22 18:04 Oxygen Delivery Me thod 06/28/22 18:04 Oxygen Flow Rate 4 06/28/22 18:04 MDM - SOB/Dyspnea Medical Decision Making Patient presents to the ER with complaints of low oxygen status even on his oxygen. Patient wears 2 L of oxygen at all times. Patient states without it over the last couple days he has been getting down all the way to the 60s and with 2 L been getting up to the 80s and even on 4 L does not go above the 90s. Patient states he went and saw his primary care doc who gave him a shot of steroids and a shot of antibiotics as well as prescribed him a Z-Duane which she has not filled yet. They also performed a chest x-ray which was negative. They told him to come here if he worsened and he thought he worsened today. Lab work was obtained which showed a white count of 11.4, ABG showed PCO2 of 52.4 PO2 of 63, has CTA was obtained which was negative for PE and obvious infiltrate patient received 125 mg Solu-Medrol IV and 1 DuoNeb treatment. Patient appears stable at this time and will be discharged to continue the Z-Duane from his PCP as well as the prednisone taper that we prescribed him. Patient is to follow-up with his primary care doc within the next 7 days as needed. Medical Records I reviewed the patient's medical records. Lab Data I reviewed the patient's lab results. 06/28/22 16:44 06/28/22 16:44 Labs/Radiology: Radiology Impressions Chest CTA 06/28/22 17:46 IMPRESSION: 1. Negative for pulmonary embolus. 2. Main pulmonary artery is prominent which can be a finding of chronic pulmonary hypertension. 3. Mild cardiomegaly. 4. Coronary artery atherosclerotic calcifications. 5. Scattered prominent mediastinal lymph nodes measuring up 10 mm, nonspecific. 6. Hepatic steatosis. 7. Cirrhotic liver suspected. 8. Cholecystectomy. 9. Mild emphysematous changes suspected. 10. Bilateral dependent atelectasis versus minimal infiltrate. COMMENTS: In the absence of a history or active diagnosis of lung cancer, it is recommended that this patient with emphysema be evaluated for enrollment in a low dose CT lung cancer screening program. Laboratory Results WBC 11.4 10^3/uL (4.0-10.0) H 06/28/22 16:44 RBC 5.37 10^6/uL (4.1-5.3) H 06/28/22 16:44 Hgb 17.8 g/dL (11.7-16.6) H 06/28/22 16:44 Hct 52.4 % (42.0-52.0) H 06/28/22 16:44 MCV 97.6 fl (80-94) H 06/28/22 16:44 MCH 33.1 pg (28.0-34.0) 06/28/22 16:44 MCHC 34.0 g/dL (30.0-36.0) 06/28/22 16:44 RDW 15.1 % (12.1-15.1) 06/28/22 16:44 Plt Count 300 10^3/cmm (130-400) 06/28/22 16:44 MPV 9.9 fL (7.4-10.4) 06/28/22 16:44 Neut % (Auto) 67.8 % 06/28/22 16:44 Lymph % (Auto) 22.3 % 06/28/22 16:44 [place] % (Auto) 7.5 % 06/28/22 16:44 Eos % (Auto) 1.6 % 06/28/22 16:44 Baso % (Auto) 0.5 % 06/28/22 16:44 Neut # (Auto) 7.74 10^3/uL (1.8-7.7) H 06/28/22 16:44 Lymph # (Auto) 2.6 10^3/uL (0.8-4.8) 06/28/22 16:44 [place] # (Auto) 0.9 10^3/uL (0.2-0.9) 06/28/22 16:44 Eos # (Auto) 0.2 10^3/uL (0.0-0.8) 06/28/22 16:44 Baso # (Auto) 0.1 10^3/uL (0.0-0.1) 06/28/22 16:44 Nucleated RBC % (auto) 0 % 06/28/22 16:44 Nucleated RBCs # 0.0 /100WBC 06/28/22 16:44 Specimen Type Arterial 06/28/22 16:40 Sample Site Radial, left 06/28/22 16:40 ABG pH 7.42 (7.35-7.45) 06/28/22 16:40 ABG pCO2 52.4 mmHg (35-45) H 06/28/22 16:40 ABG pO2 63.5 mmHg (80.0-100.0) L 06/28/22 16:40 ABG HCO3 34.1 mmol/L (22-26) H 06/28/22 16:40 ABG O2 Saturation 92.6 06/28/22 16:40 ABG Base Excess 7.6 mmol/L (-2.0-2.0) H 06/28/22 16:40 Edgardo Test Pos 06/28/22 16:40 A-a O2 Gradient 16.4 mmHg (5-10) H 06/28/22 16:40 Hematocrit 54.4 % (42-52) H 06/28/22 16:40 Hgb O2 Saturation 88.0 % (95-100) L 06/28/22 16:40 Carboxyhemoglobin 4.5 %THgb (0.4-20.1) 06/28/22 16:40 Methemoglobin 0.4 % (0.4-1.5) 06/28/22 16:40 Total Hemoglobin 17.8 g/dL (14-18) 06/28/22 16:40 Sodium 141.0 mmol/L (131-143) 06/28/22 16:40 Potassium 3.6 mmol/L (3.5-5.0) 06/28/22 16:40 Glucose 128.0 mg/dL (70-115) H 06/28/22 16:40 Ionized Calcium 1.1 mmol/L (1.1-1.4) 06/28/22 16:40 O2 Delivery Device Nc 06/28/22 16:40 O2 Liters/Min 4.0 % 06/28/22 16:40 FiO2 36.0 % 06/28/22 16:40 Sign Hanger ID Gd 06/28/22 16:40 Sodium 144 mmol/L (136-145) 06/28/22 16:44 Potassium 3.8 mmol/L (3.5-5.1) 06/28/22 16:44 Chloride 100 mmol/L (98-107) 06/28/22 16:44 Carbon Dioxide 34 mmol/L (22-29) H 06/28/22 16:44 Anion Gap 13.8 (5-19) 06/28/22 16:44 BUN 14 mg/dL (8-23) 06/28/22 16:44 Creatinine 0.9 mg/dL (0.7-1.2) 06/28/22 16:44 GFR Calculation 85.8 mL/min (90-130) L 06/28/22 16:44 Glucose 121 mg/dL (65-115) H 06/28/22 16:44 Calculated Osmolality 300 mOsm/kg (285-295) H 06/28/22 16:44 Calcium 8.6 mg/dL (8.5-10.5) 06/28/22 16:44 Magnesium 2.3 mg/dL (1.7-2.3) 06/28/22 16:44 Total Bilirubin 0.6 mg/dL (0.15-1.2) 06/28/22 16:44 AST 14 U/L (0-40) 06/28/22 16:44 ALT 15 U/L (0-41) 06/28/22 16:44 Alkaline Phosphatase 96 U/L (40-130) 06/28/22 16:44 NT-Pro-B Natriuret Pep 1126 pg/mL (0-125) H 06/28/22 16:44 Total Protein 7.1 g/dL (6.6-8.7) 06/28/22 16:44 Albumin 4.1 g/dL (3.5-5.2) 06/28/22 16:44 Globulin 3.0 g/dL (1.3-4.6) 06/28/22 16:44 Nasal Influ A H1 2009 PCR Not detected (NOT DETECT) 06/28/22 16:27 Adenovirus (PCR) Not detected (NOT DETECT) 06/28/22 16:27 C. pneumoniae DNA (PCR) Not detected (NOT DETECT) 06/28/22 16:27 Coronavirus 229E (PCR) Not detected (NOT DETECT) 06/28/22 16:27 Human Metapneumovir PCR Not detected (NOT DETECT) 06/28/22 16:27 Influenza A (H1) PCR Not detected (NOT DETECT) 06/28/22 16:27 Influenza A (H3) PCR Not detected (NOT DETECT) 06/28/22 16:27 Influenza Type A (PCR) Not detected (NOT DETECT) 06/28/22 16:27 Influenza Type B (PCR) Not detected (NOT DETECT) 06/28/22 16:27 M. pneumoniae (PCR) Not detected (NOT DETECT) 06/28/22 16:27 Parainfluenza 1 (PCR) Not detected (NOT DETECT) 06/28/22 16:27 Parainfluenza 2 (PCR) Not detected (NOT DETECT) 06/28/22 16:27 Parainfluenza 3 (PCR) Not detected (NOT DETECT) 06/28/22 16:27 Parainfluenza 4 (PCR) Not detected (NOT DETECT) 06/28/22 16:27 RSV Type A (PCR) Not detected (NOT DETECT) 06/28/22 16:27 RSV Type B (PCR) Not detected (NOT DETECT) 06/28/22 16:27 Entero/Rhino (PCR) Not detected (NOT DETECT) 06/28/22 16:27 SARS-CoV-2 (PCR) Not detected (NOT DETECT) 06/28/22 16:27 EKG Data EKG 1: I personally reviewed and interpreted this EKG as follows: EKG Interpretation Date: 06/28/22 EKG interpretation time: 16:19 Prior EKG tracings: not available for review Interpretation: EKG showed normal sinus rhythm with occasional ectopic premature complexes, circular rate of 65 bpm, CA is 192, QRS duration 150, QTc of 466, indeterminate axis, right bundle branch block, Discharge Plan Discharge Patient Disposition: Home Clinical Impression: Acute exacerbation of chronic obstructive airways disease Condition: Stable Prescriptions: New prednisone 20 mg tablet 60 mg PO DAILY 5 Days Qty: 15 0RF Rx Instructions: days 11-21 of therapy No Action allopurinol 300 mg tablet 300 mg PO BID bupropion HCl [Wellbutrin XL] 300 mg tablet extended release 24 hr 300 mg PO .1 day cyclobenzaprine 10 mg tablet 10 mg PO TID PRN (Reason: muscle spasm) Qty: 90 1RF aspirin [Adult Low Dose Aspirin] 81 mg tablet,delayed release (DR/EC) 81 mg PO DAILY Qty: 90 2RF nitroglycerin [Nitrostat] 0.4 mg tablet, sublingual 0.4 mg SUBLINGUAL Q5M PRN (Reason: chest pain) Qty: 1 4RF Rx Instructions: Take one tab sublingual for chest pain every 5 mins up to 3 tabs total nicotine (polacrilex) 2 mg gum 2 mg buccal Q2H PRN (Reason: nicotine cravings) Qty: 50 3RF lisinopril 20 mg tablet 20 mg PO DAILY Qty: 90 3RF metoprolol tartrate 50 mg tablet 50 mg PO BID Rx Instructions: 75mg in the AM 50 mg PM amlodipine 5 mg tablet 5 mg PO DAILY Qty: 90 3RF erythromycin 5 mg/gram (0.5 %) ointment 1 applic ophthalmic (eye) QID Qty: 3.5 0RF magnesium 200 mg tablet 400 mg PO DAILY clopidogrel 75 mg tablet 75 mg PO QDAY Qty: 90 3RF isosorbide mononitrate 30 mg tablet extended release 24 hr 30 mg PO QAM Qty: 90 3RF furosemide 40 mg tablet 100 mg PO DIRECTED Qty: 225 1RF Rx Instructions: Take 60mg (1.5 tabs) in AM and 40mg (1 tab) in PM potassium chloride [Klor-Con M20] 20 mEq tablet,ER particles/crystals 20 meq PO BID Qty: 180 2RF montelukast [Singulair] 10 mg tablet 10 mg PO DAILY Qty: 30 3RF diltiazem HCl [Cardizem CD] 120 mg capsule,extended release 24hr 120 mg PO DAILY Qty: 90 1RF budesonide-formoterol [Symbicort] 80-4.5 mcg/actuation HFA aerosol inhaler 2 puff inhalation BID Qty: 10.2 3RF Ventolin HFA 90 mcg/actuation HFA aerosol inhaler 2 inh inhalation Q8H PRN (Reason: shortness of breath or wheezing) Qty: 8.5 0RF Discharge Orders: Discharge ED (Routine); Ordered 06/28/22 Ordered By: González Joel Referrals: Jose Ramon Salguero NP [Primary Care Provider] - 1 week Discharge Activity: Increase activity as tolerated Patient Instructions: COPD (Chronic Obstructive Pulmonary Disease) (ED) Coding Level of Care Code ED Eggs Inspector for Lila Don
[2022-06-28 16:36] VITALS: BP 133/73; PULSE 68; O2SAT 89
[2022-06-28 16:56] LABS: ABG PCO2 52.4 mmHg (35-45); ABG PH Result 7.42 (7.35-7.45); Alveolar-Arterial Oxygen Gradi 16.4 mmHg (5-10); Arterial Blood Gas Hematocrit 54.4 % (42-52); Base Excess ABG 7.6 mmol/L (-2.0-2.0); Blood Gas Allen Test Pos; Blood Gas Operator Identificat GD; Blood Gas Sample Site Radial, left; Blood Gas Sample Type Arterial; Carboxyhemoglobin 4.5 %THgb (0.4-20.1); HCO3 ABG 34.1 mmol/L (22-26); Ionized Calcium Level - ABG 1.1 mmol/L (1.1-1.4); Methemoglobin 0.4 % (0.4-1.5); Oxygen Device NC; Oxygen Saturation ABG 92.6; PO2 ABG 63.5 mmHg (80.0-100.0); Potassium Level - ABG 3.6 mmol/L (3.5-5.0); Total Hemoglobin 17.8 g/dL (14-18)
[2022-06-28 17:12] LABS: Basophils # 0.1 10^3/uL (0.0-0.1); Basophils % 0.5 %; Eosinophils # 0.2 10^3/uL (0.0-0.8); Eosinophils % 1.6 %; Hematocrit 52.4 % (42.0-52.0); Hemoglobin 17.8 g/dL (11.7-16.6); Lymphocytes # 2.6 10^3/uL (0.8-4.8); Lymphocytes % 22.3 %; Mean Corpuscular Hemoglobin 33.1 pg (28.0-34.0); Mean Corpuscular Volume 97.6 fl (80-94); Mean Platelet Volume 9.9 fL (7.4-10.4); Monocytes # 0.9 10^3/uL (0.2-0.9); Monocytes % 7.5 %; Neutrophils # 7.74 10^3/uL (1.8-7.7); Neutrophils % 67.8 %; Nucleated Red Blood Cells % 0 %; Platelet Count 300 10^3/cmm (130-400); Red Blood Count 5.37 10^6/uL (4.1-5.3); Red Cell Distribution Width 15.1 % (12.1-15.1); White Blood Count 11.4 10^3/uL (4.0-10.0)
[2022-06-28 17:36] LABS: Alanine Aminotransferase 15 U/L (0-41); Albumin Level 4.1 g/dL (3.5-5.2); Alkaline Phosphatase 96 U/L (40-130); Anion Gap 13.8 (5-19); Aspartate Amino Transferase 14 U/L (0-40); Blood Urea Nitrogen 14 mg/dL (8-23); Calcium 8.6 mg/dL (8.5-10.5); Carbon Dioxide 34 mmol/L (22-29); Chloride 100 mmol/L (98-107); Glomerular Filtration Rate 85.8 mL/min (90-130); Glucose 121 mg/dL (65-115); Magnesium 2.3 mg/dL (1.7-2.3); NT Pro B Type Natriuretic Pept 1126 pg/mL (0-125); Osmolality Calculated 300 mOsm/kg (285-295); Potassium 3.8 mmol/L (3.5-5.1); Sodium 144 mmol/L (136-145); Total Bilirubin 0.6 mg/dL (0.15-1.2); Total Protein 7.1 g/dL (6.6-8.7)
--- NOTE | 2022-06-28 17:46 | CTR_ITS ---
PROCEDURE INFORMATION: Exam: CTA Chest With Contrast Exam date and time: 06/28/2022 6:07 PM Age: 61 years old Clinical indication: Dyspnea and shortness of breath; Additional info: Dyspnea, hypoxia, normal cxr, copd TECHNIQUE: Imaging protocol: Computed tomographic angiography of the chest with contrast. 3D rendering (Not supervised by radiologist): MIP and/or 3D reconstructed images were created by the technologist. Radiation optimization: All CT scans at this facility use at least one of these dose optimization techniques: automated exposure control; mA and/or kV adjustment per patient size (includes targeted exams where dose is matched to clinical indication); or iterative reconstruction. Contrast material: OMNI 350; Contrast volume: 87 ml; Contrast route: INTRAVENOUS (IV); REPORTING DATA: Count of CT and Cardiac NM exams in prior 12 months: This patient has received 2 known CTs and 0 known cardiac nuclear medicine studies in the 12 months prior to the current study. COMPARISON: CT angio chest PE protcl [id number] 10/26/2017 2:17 PM RADIATION DOSE METRICS: Total DLP (mGy-cm): 589.54 FINDINGS: Pulmonary arteries: Main pulmonary artery is prominent which can be a finding of chronic pulmonary hypertension. Aorta: Unremarkable. No aortic aneurysm. No aortic dissection. Lungs: Mild emphysematous changes suspected. Bilateral dependent atelectasis versus minimal infiltrate. Pleural spaces: Unremarkable. No pneumothorax. No pleural effusion. Heart: Mild cardiomegaly. Coronary arteries: Coronary artery atherosclerotic calcifications. Lymph nodes: Scattered prominent mediastinal lymph nodes measuring up 10 mm, nonspecific. Liver: Hepatic steatosis. Cirrhotic liver suspected. Gallbladder and bile ducts: Cholecystectomy. Bones/joints: Unremarkable. No acute fracture. Soft tissues: Unremarkable. CT/CT angio chest PE protcl [id number] IMPRESSION: 1. Negative for pulmonary embolus. 2. Main pulmonary artery is prominent which can be a finding of chronic pulmonary hypertension. 3. Mild cardiomegaly. 4. Coronary artery atherosclerotic calcifications. 5. Scattered prominent mediastinal lymph nodes measuring up 10 mm, nonspecific. 6. Hepatic steatosis. 7. Cirrhotic liver suspected. 8. Cholecystectomy. 9. Mild emphysematous changes suspected. 10. Bilateral dependent atelectasis versus minimal infiltrate. COMMENTS: In the absence of a history or active diagnosis of lung cancer, it is recommended that this patient with emphysema be evaluated for enrollment in a low dose CT lung cancer screening program.
[2022-06-28 18:04] VITALS: BP 122/77; PULSE 73; O2SAT 90
[2022-06-28] MEDS: iohexol 350 mg/mL 500 mL Btl (per mL) IV (18:17)
[2022-06-28 18:37] LABS: Adenovirus Not Detected (NOT DETECT); Chlamydia Pneumoniae Not Detected (NOT DETECT); Coronavirus 229E,HKU1,NL63,OC4 Not Detected (NOT DETECT); Human Metapneumovirus Not Detected (NOT DETECT); Human Rhinovirus/Enterovirus Not Detected (NOT DETECT); Influenza A Not Detected (NOT DETECT); Influenza A H1 Not Detected (NOT DETECT); Influenza A H1-2009 Not Detected (NOT DETECT); Influenza A H3 Not Detected (NOT DETECT); Influenza B Not Detected (NOT DETECT); Mycoplasma Pneumoniae Not Detected (NOT DETECT); Parainfluenza Virus Type 1 Not Detected (NOT DETECT); Parainfluenza Virus Type 2 Not Detected (NOT DETECT); Parainfluenza Virus Type 3 Not Detected (NOT DETECT); Parainfluenza Virus Type 4 Not Detected (NOT DETECT); Respiratory Syncytial Virus A Not Detected (NOT DETECT); Respiratory Syncytial Virus B Not Detected (NOT DETECT); SARS-COV-2 Not Detected (NOT DETECT)
[2022-06-28 19:00] VITALS: BP 112/73; PULSE 65; RESP 12; O2SAT 88
[2022-06-28 19:30] VITALS: PULSE 63; RESP 20; O2SAT 93
[2022-06-28] MEDS: ipratropium-albuterol 3 mL Neb INHALATION (19:30)
[2022-06-28 19:46] VITALS: BP 153/96; PULSE 67; RESP 18; O2SAT 90
== END 2022-06-28 19:49 | disposition home or self-care (01) ==
PROVIDERS: Emergency Provider Emergency Medicine; PCP Nurse Practitioner Family
DX: J44.1 Chronic obstructive pulmonary disease with (acute) exacerbation (principal); Z79.82 Long term (current) use of aspirin; Z20.822 Contact with and (suspected) exposure to COVID-19; F17.210 Nicotine dependence, cigarettes, uncomplicated; I25.10 Atherosclerotic heart disease of native coronary artery without angina pectoris; I11.0 Hypertensive heart disease with heart failure; I50.9 Heart failure, unspecified; E78.5 Hyperlipidemia, unspecified
CPT/HCPCS: 36415; 36600; 71275; 80051; 80053; 82330; 82805; 83735; 83880; 85025; 87486; 87581; 87633; 93005; 94640; 96374; 99285; J2930; Q9967

== ENCOUNTER 2022-09-15 13:48 | Emergency (ER) | payer MEDICAID, SELFPAY ==
[2022-09-15] VITALS (8 sets, daily range): BP systolic 117–130; BP diastolic 69–84; PULSE 64–105; RESP 12–18; TEMP 36.3; O2SAT 92–94; BMI 42.5
--- NOTE | 2022-09-15 14:09 | XR_ITS ---
WS: [id number] EXAMINATION: XR chest 1V portable [id number] REASON FOR EXAM: dyspnea/cough COMPARISON: 06/27/2022 ORDER DATE: 09/15/2022 2:09 PM TECHNIQUE: A single, portable frontal chest x-ray was obtained. X-RAY FINDINGS: The lungs are clear. Pleural spaces are clear. No pleural effusions or pneumothorax. Cardiomediastinal silhouette is normal. No evidence for pulmonary edema. Soft tissue and osseous structures are unremarkable. No tubes or lines are present. XR/XR chest 1V portable [id number] IMPRESSION: Unremarkable frontal portable chest x-ray.
--- NOTE | 2022-09-15 14:16 | ECG_ITS ---
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 Measurements Intervals [place] Rate: 77 P: 61 FL: 184 QRS: 199 QRSD: 149 T: 52 QT: 436 QTc: 494 Interpretive Statements SINUS RHYTHM WITH OCCASIONAL VENTRICULAR PREMATURE COMPLEXES WITH FREQUENT SUPRAVENTRICULAR PREMATURE COMPLEXES POSSIBLE LEFT ATRIAL ENLARGEMENT [-0.1mV P-WAVE IN V1/V2] INDETERMINATE AXIS RIGHT BUNDLE BRANCH BLOCK [120+ ms QRS DURATION, UPRIGHT V1, 40+ ms S IN I/aVL/V4/V5/V6] ST DEPRESSION, CONSIDER SUBENDOCARDIAL INJURY [0.1+ mV ST DEPRESSION] Compared to ECG 06/28/2022 16:19:21 Ventricular premature complex(es) now present ST (T wave) deviation now present Electronically Signed On 09-15-2022 15:59:08 CDT by Svitlana Casey M.D. [id number]
--- NOTE | 2022-09-15 14:24 | XR_ITS ---
WS: [id number] EXAMINATION: XR ribs RT 2V* [id number] REASON FOR EXAM: pain/trauma COMPARISON: None available. ORDER DATE: 09/15/2022 2:53 PM FINDINGS/IMPRESSION: THERE are no acute rib fracture changes. There is limited imaging of the lower ribs due to diaphragm attenuation of the rib outlines diminishing penetration. Numerous underlying pulmonary granulomatous calcifications are seen without evidence of acute pulmonary change or pneumothorax.
[2022-09-15] MEDS: HYDROcodone-acetaminophen 5-325 mg Tablet 1 TAB PO (14:39)
[2022-09-15 14:41] LABS: Basophils # 0.1 10^3/uL (0.0-0.1); Basophils % 0.3 %; Eosinophils # 0.2 10^3/uL (0.0-0.8); Eosinophils % 1.2 %; Hematocrit 57.1 % (42.0-52.0); Hemoglobin 20.1 g/dL (11.7-16.6); Lymphocytes % 21.9 %; Mean Corpuscular HGB Conc 35.2 g/dL (30.0-36.0); Mean Corpuscular Hemoglobin 34.7 pg (28.0-34.0); Mean Corpuscular Volume 98.4 fl (80-94); Monocytes # 1.6 10^3/uL (0.2-0.9); Neutrophils # 12.13 10^3/uL (1.8-7.7); Neutrophils % 66.4 %; Nucleated Red Blood Cells % 0.1 %; Platelet Count 255 10^3/cmm (130-400); White Blood Count 18.2 10^3/uL (4.0-10.0)
[2022-09-15 15:02] LABS: Alanine Aminotransferase 40 U/L (0-41); Albumin Level 4.1 g/dL (3.5-5.2); Alkaline Phosphatase 76 U/L (40-130); Anion Gap 14.1 (5-19); Aspartate Amino Transferase 26 U/L (0-40); Blood Urea Nitrogen 39 mg/dL (8-23); Calcium 9.4 mg/dL (8.5-10.5); Carbon Dioxide 36 mmol/L (22-29); Chloride 93 mmol/L (98-107); Globulin 2.7 g/dL (1.3-4.6); Glomerular Filtration Rate 61.6 mL/min (90-130); Glucose 109 mg/dL (65-115); NT Pro B Type Natriuretic Pept 1085 pg/mL (0-125); Osmolality Calculated 300 mOsm/kg (285-295); Potassium 3.1 mmol/L (3.5-5.1); Sodium 140 mmol/L (136-145); Total Bilirubin 0.8 mg/dL (0.15-1.2); Total Protein 6.8 g/dL (6.6-8.7)
--- NOTE | 2022-09-15 16:02 | W.ED.WEAKNES ---
HPI - Weakness General: Chief complaint: Weakness Stated complaint: sob, dizziness Time Seen by Provider: 09/15/22 14:08 Source: patient Mode of arrival: ambulatory History of Present Illness: 61-year-old male presents emergency room complaining of shortness of breath and dizziness. He recently fell and hit his right lower ribs. He has pain specifically at that spot. Denies any other injuries denies striking his head. He does occasionally has some dizziness. No chest pain. Patient is chronically on 2 L of oxygen by nasal cannula for his COPD. MD Complaint: generalized weakness Location: generalized Relieving factors: none Exacerbating factors: none Associated symptoms: Reports chest pain (Point tenderness right lower ribs); Denies chills, confusion, melena, decreased appetite, diaphoresis, dysuria, easy bruising, fever(s), headache(s), myalgias, nausea, rash, short of breath, syncope or vomiting Review of Systems Const: Denies: fever(s), chills, fatigue, malaise or diaphoresis ENMT: Denies: throat pain, ear or mastoid pain, nasal discharge or nasal congestion Card: Reports: chest pain (Point tenderness right lower ribs); Denies: palpitations, irregular heart rhythm or syncope Resp: Denies: dyspnea, productive cough or non-productive cough GI: Denies: abdominal pain, nausea, vomiting or melena : Denies: dysuria, urinary frequency or urinary urgency Skin/Breast: Denies: rash or pruritus Neuro: Denies: headache(s) or confusion Jacob/Lymph: Denies: easy bruising PFSH ED PFSH: Medical History CAD (coronary artery disease) Cervical disc disorder with myelopathy of mid-cervical region Diastolic CHF Dyslipidemia Encounter for long-term opiate analgesic use HTN (hypertension) Long-term use of high-risk medication PVC (premature ventricular contraction) Smoker Spondylolisthesis Surgical History Hx of decompression of ulnar nerve RIGHT Previous back surgery LOWER BACK PLUS YEARS AGO S/P carpal tunnel release RIGHT S/P cholecystectomy Family History Other Lupus Rheumatoid arthritis Social History Smoking and tobacco status: current every day smoker cigarettes Packs smoked per day: 2 Years cigarettes smoked: 48 [ Other cigarette details: Started at age 13] Alcohol intake: never Substance/Drug Use: never Physical Exam Const: GENERAL APPEARANCE: cooperative ORIENTATION/CONSCIOUSNESS: Yes awake, Yes oriented to person, Yes oriented to place and Yes oriented to time HENMT: COMMON NORMALS: normocephalic, atraumatic and hearing grossly normal bilaterally HEAD & SCALP: normocephalic and atraumatic Resp: COMMON NORMALS: normal respiratory effort, No retractions, No use of accessory muscles and clear to auscultation bilaterally AUSCULTATION: clear to auscultation bilaterally Cardio: COMMON NORMALS: regular rate, regular rhythm and No murmurs present (Cardio) RATE: regular rate RHYTHM: regular rhythm GI: COMMON NORMALS: Soft to palpation and No hepatosplenomegaly present AUSCULTATION: Yes normoactive bowel sounds PALPATION: Yes Soft to palpation, No Tenderness to palpation present (GI), No Guarding due to palpation present (GI) and Yes No hepatosplenomegaly present Extremity: COMMON NORMALS: normal to inspection, capillary refill normal, no clubbing, cyanosis or edema, no calf tenderness and no pedal edema Neuro: SENSORIUM/ORIENTATION: Yes oriented to person, Yes oriented to place and Yes oriented to time Skin: COMMON NORMALS: no rashes or lesions noted GENERAL SKIN EXAM: no rashes or lesions noted Course Vital Signs: Vital signs: Vital Signs Temperature 97.4 F L 09/15/22 14:01 Pulse Rate 81 09/15/22 17:52 Respiratory Rate 18 09/15/22 17:52 Blood Pressure 119/70 09/15/22 17:09 Pulse Oximetry 94 09/15/22 17:52 Oxygen Delivery Me thod Nasal Cannula 09/15/22 16:37 Oxygen Flow Rate 2 09/15/22 16:37 MDM - Weakness Medical Decision Making Patient recent cardiac stress test in June of last year that was negative there is evidence of old infarct but no new ischemia. We will go ahead and discharge patient home have him follow-up with cardiology regarding syncopal episodes he is feeling much better would like to go home Labs and imaging reviewed with the patient discharge him home with pain medications return if he has further problems. Avoid strenuous activity. EKG did not show any acute changes chest x-ray no acute fractures or infiltrates no pneumothorax Medical Records I reviewed the patient's medical records. Lab Data I reviewed the patient's lab results. 09/15/22 14:29 09/15/22 14:29 Radiology Impressions Chest X-Ray 09/15/22 14:09 IMPRESSION: Unremarkable frontal portable chest x-ray. Laboratory Results WBC 18.2 10^3/uL (4.0-10.0) H 09/15/22 14:29 RBC 5.80 10^6/uL (4.1-5.3) H 09/15/22 14:29 Hgb 20.1 g/dL (11.7-16.6) H 09/15/22 14:29 Hct 57.1 % (42.0-52.0) H 09/15/22 14:29 MCV 98.4 fl (80-94) H 09/15/22 14:29 MCH 34.7 pg (28.0-34.0) H 09/15/22 14:29 MCHC 35.2 g/dL (30.0-36.0) 09/15/22 14:29 RDW 16.0 % (12.1-15.1) H 09/15/22 14:29 Plt Count 255 10^3/cmm (130-400) 09/15/22 14:29 MPV 10.0 fL (7.4-10.4) 09/15/22 14:29 Neut % (Auto) 66.4 % 09/15/22 14:29 Lymph % (Auto) 21.9 % 09/15/22 14:29 [place] % (Auto) 9.0 % 09/15/22 14:29 Eos % (Auto) 1.2 % 09/15/22 14:29 Baso % (Auto) 0.3 % 09/15/22 14:29 Neut # (Auto) 12.13 10^3/uL (1.8-7.7) H 09/15/22 14:29 Lymph # (Auto) 4.0 10^3/uL (0.8-4.8) 09/15/22 14:29 [place] # (Auto) 1.6 10^3/uL (0.2-0.9) H 09/15/22 14:29 Eos # (Auto) 0.2 10^3/uL (0.0-0.8) 09/15/22 14: Baso # (Auto) 0.1 10^3/uL (0.0-0.1) 09/15/22 14: Nucleated RBC % (auto) 0.1 % 09/15/22 14: Nucleated RBCs # 0.0 /100WBC 09/15/22 14:29 Sodium 140 mmol/L (136-145) 09/15/22 14: Potassium 3.1 mmol/L (3.5-5.1) L 09/15/22 14: Chloride 93 mmol/L (98-107) L 09/15/22 14: Carbon Dioxide 36 mmol/L (22-29) H 09/15/22 14: Anion Gap 14.1 (5-19) 09/15/22 14: BUN 39 mg/dL (8-23) H 09/15/22 14: Creatinine 1.2 mg/dL (0.7-1.2) 09/15/22 14: GFR Calculation 61.6 mL/min (90-130) L 09/15/22 14: Glucose 109 mg/dL (65-115) 09/15/22 14: Calculated Osmolality 300 mOsm/kg (285-295) H 09/15/22 14:29 Calcium 9.4 mg/dL (8.5-10.5) 09/15/22 14: Total Bilirubin 0.8 mg/dL (0.15-1.2) 09/15/22 14: AST 26 U/L (0-40) 09/15/22 14:29 ALT 40 U/L (0-41) 09/15/22 14:29 Alkaline Phosphatase 76 U/L (40-130) 09/15/22 14:29 NT-Pro-B Natriuret Pep 1085 pg/mL (0-125) H 09/15/22 14:29 Total Protein 6.8 g/dL (6.6-8.7) 09/15/22 14:29 Albumin 4.1 g/dL (3.5-5.2) 09/15/22 14: Globulin 2.7 g/dL (1.3-4.6) 09/15/22 14:29 Discharge Plan Discharge Patient Disposition: Home Clinical Impression: Contusion of rib on right side Condition: Stable Prescriptions: New hydrocodone-acetaminophen 5-325 mg tablet 1 tab PO Q6H PRN (Reason: pain) Qty: 20 0RF No Action allopurinol 300 mg tablet 300 mg PO BID bupropion HCl [Wellbutrin XL] 300 mg tablet extended release 24 hr 300 mg PO .1 day cyclobenzaprine 10 mg tablet 10 mg PO TID PRN (Reason: muscle spasm) Qty: 90 1RF aspirin [Adult Low Dose Aspirin] 81 mg tablet,delayed release (DR/EC) 81 mg PO DAILY Qty: 90 2RF nitroglycerin [Nitrostat] 0.4 mg tablet, sublingual 0.4 mg SUBLINGUAL Q5M PRN (Reason: chest pain) Qty: 1 4RF Rx Instructions: Take one tab sublingual for chest pain every 5 mins up to 3 tabs total nicotine (polacrilex) 2 mg gum 2 mg buccal Q2H PRN (Reason: nicotine cravings) Qty: 50 3RF metoprolol tartrate 50 mg tablet 50 mg PO BID Rx Instructions: 75mg in the AM 50 mg PM amlodipine 5 mg tablet 5 mg PO DAILY Qty: 90 3RF erythromycin 5 mg/gram (0.5 %) ointment 1 applic ophthalmic (eye) QID Qty: 3.5 0RF clopidogrel 75 mg tablet 75 mg PO QDAY Qty: 90 3RF isosorbide mononitrate 30 mg tablet extended release 24 hr 30 mg PO QAM Qty: 90 3RF furosemide 40 mg tablet 100 mg PO DIRECTED Qty: 225 1RF Rx Instructions: Take 60mg (1.5 tabs) in AM and 40mg (1 tab) in PM potassium chloride [Klor-Con M20] 20 mEq tablet,ER particles/crystals 20 meq PO BID Qty: 180 2RF diltiazem HCl [Cardizem CD] 120 mg capsule,extended release 24hr 120 mg PO DAILY Qty: 90 1RF Ventolin HFA 90 mcg/actuation HFA aerosol inhaler 2 inh inhalation Q8H PRN (Reason: shortness of breath or wheezing) Qty: 8.5 0RF lisinopril 20 mg tablet 20 mg PO DAILY Qty: 90 3RF montelukast [Singulair] 10 mg tablet 10 mg PO DAILY Qty: 90 3RF budesonide-formoterol [Symbicort] 80-4.5 mcg/actuation HFA aerosol inhaler 2 puff inhalation BID Qty: 10.2 3RF magnesium oxide 400 mg magnesium tablet 400 mg PO DAILY Qty: 90 1RF Discharge Orders: Discharge ED (Routine); Ordered 09/15/22 Ordered By: Nazario Benitez Referrals: Jose Ramon Salguero NP [Primary Care Provider] - Discharge Diet: Usual diet Discharge Activity: Increase activity as tolerated Patient Instructions: Opioid Safety, Pain Management Activity Restrictions/Additional Instructions: You are seen today for chest pain which appears to be musculoskeletal related to the contusion in your ribs. Use pain medications as above. If any worsening or change symptoms return to the emergency room Coding Level of Care Code ED Night Warehouse Manager for Lila Don
[2022-09-15] MEDS: sodium chloride 0.9% 1,000 ML 999 ML IV (16:13)
[2022-09-15] MEDS: ipratropium-albuterol 3 mL Neb INHALATION (16:30)
== END 2022-09-15 17:52 | disposition home or self-care (01) ==
PROVIDERS: Emergency Provider Family Medicine; PCP Nurse Practitioner Family
DX: Z79.82 Long term (current) use of aspirin (principal); Z79.02 Long term (current) use of antithrombotics/antiplatelets; F17.210 Nicotine dependence, cigarettes, uncomplicated; I25.10 Atherosclerotic heart disease of native coronary artery without angina pectoris; I11.0 Hypertensive heart disease with heart failure; I50.30 Unspecified diastolic (congestive) heart failure; E78.5 Hyperlipidemia, unspecified
CPT/HCPCS: 36415; 71045; 71100; 80053; 83880; 85025; 93005; 94640; 99285; J7030

== ENCOUNTER → 2022-09-21 11:01 | Outpatient (BNVA) | payer MEDICAID, SELFPAY | PROVIDERS: PCP Nurse Practitioner Family; Visit Provider Internal Medicine Pulmonary Disease | DX: R07.9 Chest pain, unspecified (principal); U09.9 Post COVID-19 condition, unspecified; J44.1 Chronic obstructive pulmonary disease with (acute) exacerbation; F17.200 Nicotine dependence, unspecified, uncomplicated | CPT/HCPCS: 71046; 99214 ==

== ENCOUNTER → 2022-10-03 13:51 | Outpatient (BNVA) | payer MEDICAID, SELFPAY | PROVIDERS: PCP Nurse Practitioner Family; Visit Provider Nurse Practitioner Family | DX: I25.10 Atherosclerotic heart disease of native coronary artery without angina pectoris (principal); I11.0 Hypertensive heart disease with heart failure; I50.32 Chronic diastolic (congestive) heart failure; F17.210 Nicotine dependence, cigarettes, uncomplicated | CPT/HCPCS: 80048; 83880; 99214 ==

== ENCOUNTER 2022-10-17 10:59 | Outpatient (CLI) | payer MEDICAID, SELFPAY ==
--- NOTE | 2022-10-17 11:15 | USCV_ITS ---
Crow Will Age: 62 Gender: M : 1960 Exam Date: 10/17/2022 11:41 Ordering Phys: Marjorie Cote Technologist: Jacob Hedrick [place] [facility] [place] chf BP: 190 / 90 HR: 76 Rhythm: Other Technical Quality: Adequate MEASUREMENTS (Male / Female) Normal Values 2D ECHO LVOT Diameter 2.1 cm LV Ejection Fraction MOD 2C 64.2 % LV Ejection Fraction 2C AL 65.5 % LA Diameter 3.7 cm LA Width 3.7 cm LA Height 5.7 cm RA Width 4.2 cm RA Height 6.0 cm Aorta at Sinotubular Diameter 2.7 cm IVC Diameter 1.8 cm M-MODE Aortic Annulus Diameter 2.9 cm LA Ao Ratio MM 1.2 MV E Point Septal Separation 0.6 cm DOPPLER AV Peak Velocity 165.3 cm/s LVOT Peak Velocity 96.0 cm/s AV Area Cont Eq vti 2.1 cm squared AV Area Cont Eq pk 2.0 cm squared MV Peak Velocity 109.0 cm/s MV Area PHT 3.7 cm squared Mitral E to A Ratio 0.8 MV E' Velocity 43.5 cm/s Mitral E to MV E' Ratio 10.5 Mitral E to LV E' Lateral Ratio 8.0 Mitral E to LV E' Septal Ratio 15.3 TR Peak Velocity 386.0 cm/s TR Peak Gradient 59.6 mmHg TR Mean Velocity 278.5 cm/s TR Mean Gradient 34.1 mmHg TR Velocity Time Integral 136.4 cm Right Atrial Pressure 8.0 mmHg Pulmonary Artery Systolic Pressu 67.6 mmHg PV Peak Velocity 124.0 cm/s RV Acceleration Time 0.1 s RV Ejection Time 0.3 s RV AcT/ET 0.3 FINDINGS Left Ventricle Left ventricle is normal in size. LV systolic function is normal with EF of 60 to 65%. No regional wall motion abnormalities are seen. Grade 1 diastolic dysfunction Right Ventricle Appears to be dilated. By TAPSE, RV function is normal Right Atrium Normal in size Left Atrium Normal in size Mitral Valve Structurally normal valve. Trace mitral regurgitation. Aortic Valve Structurally normal aortic valve. No significant stenosis. Tricuspid Valve Mild tricuspid regurgitation. Insufficient TR jet to calculate RVSP Pulmonic Valve Not well visualized Pericardium Normal Aorta Normal in size IVC Appears to be normal CONCLUSIONS LV systolic function is normal with EF of 60 to 65%. Grade 1 diastolic dysfunction. Right ventricle appears to be dilated. Trace mitral regurgitation Mild tricuspid regurgitation Compared to prior echocardiogram from 2021, right ventricle appears to be dilated Carlos Alberto Loaiza MD (Electronically Signed) Final Date: 29 October 2022 12:09 S
== END 2022-10-17 11:00 | disposition home or self-care (01) ==
LOC: RAD 11:01
PROVIDERS: PCP Nurse Practitioner Family; Visit Provider Nurse Practitioner Family
DX: I50.33 Acute on chronic diastolic (congestive) heart failure (principal); I07.1 Rheumatic tricuspid insufficiency
CPT/HCPCS: 93306

== ENCOUNTER → 2022-11-15 13:20 | Outpatient (BNVA) | payer MEDICAID, SELFPAY | PROVIDERS: PCP Nurse Practitioner Family; Visit Provider Internal Medicine Cardiovascular Disease | DX: R06.02 Shortness of breath (principal); I25.10 Atherosclerotic heart disease of native coronary artery without angina pectoris; I11.0 Hypertensive heart disease with heart failure; I50.32 Chronic diastolic (congestive) heart failure; I49.3 Ventricular premature depolarization; E78.5 Hyperlipidemia, unspecified; F17.210 Nicotine dependence, cigarettes, uncomplicated | CPT/HCPCS: 99214 ==

== ENCOUNTER 2022-11-30 08:45 | Outpatient (CLI) | payer MEDICAID, SELFPAY ==
[2022-11-30 09:03] LABS: Basophils # 0.1 10^3/uL (0.0-0.1); Basophils % 0.7 %; Eosinophils # 0.3 10^3/uL (0.0-0.8); Eosinophils % 2.1 %; Hematocrit 54.8 % (37-53); Lymphocytes # 4.8 10^3/uL (0.8-4.8); Lymphocytes % 28.9 %; Mean Corpuscular HGB Conc 34.9 g/dL (30-55); Mean Corpuscular Hemoglobin 33.6 pg (27-33); Mean Corpuscular Volume 96.5 fl (82-101); Mean Platelet Volume 9.7 fL (7.4-10.4); Monocytes # 1.4 10^3/uL (0.2-0.9); Monocytes % 8.7 %; Neutrophils # 9.75 10^3/uL (1.8-7.7); Neutrophils % 59.2 %; Nucleated Red Blood Cells % 0.2 %; Platelet Count 279 10^3/cmm (157-399); Red Blood Count 5.68 10^6/uL (3.85-5.65); Red Cell Distribution Width 15.2 % (12.1-15.1); White Blood Count 16.44 10^3/uL (3.29-11.43)
[2022-11-30 09:15] LABS: INR 0.86 (0.83-1.21)
[2022-11-30 09:34] LABS: Blood Urea Nitrogen 29 mg/dL (8-23); Calcium 8.8 mg/dL (8.5-10.5); Chloride 88 mmol/L (98-107); Glucose 121 mg/dL (65-115); Magnesium 1.7 mg/dL (1.7-2.3); NT Pro B Type Natriuretic Pept 1031 pg/mL (0-125); Osmolality Calculated 301 mOsm/kg (285-295); Sodium 142 mmol/L (136-145)
[2022-11-30 10:16] LABS: Carbon Dioxide 41 mmol/L (22-29)
[2022-11-30 10:17] LABS: Anion Gap 15.6 (5-19); Potassium 2.6 mmol/L (3.5-5.1)
== END 2022-11-30 08:46 | disposition home or self-care (01) ==
PROVIDERS: PCP Nurse Practitioner Family; Visit Provider Internal Medicine Cardiovascular Disease
DX: I25.10 Atherosclerotic heart disease of native coronary artery without angina pectoris (principal); R06.02 Shortness of breath; I50.32 Chronic diastolic (congestive) heart failure
CPT/HCPCS: 80048; 83735; 83880; 85025; 85610

== ENCOUNTER 2022-12-02 07:30 | Outpatient (CLI) | payer MEDICAID, SELFPAY ==
[2022-12-02 08:19] LABS: Blood Urea Nitrogen 30 mg/dL (8-23); Calcium 9.1 mg/dL (8.5-10.5); Chloride 88 mmol/L (98-107); Glomerular Filtration Rate 55.9 mL/min (90-130); Glucose 93 mg/dL (65-115); Osmolality Calculated 304 mOsm/kg (285-295); Sodium 144 mmol/L (136-145)
[2022-12-02 08:54] LABS: Anion Gap 12.8 (5-19)
[2022-12-02 08:55] LABS: Carbon Dioxide 46 mmol/L (22-29); Potassium 2.8 mmol/L (3.5-5.1)
== END 2022-12-02 07:31 | disposition home or self-care (01) ==
PROVIDERS: PCP Nurse Practitioner Family; Visit Provider Internal Medicine Cardiovascular Disease
DX: R06.02 Shortness of breath (principal); I11.0 Hypertensive heart disease with heart failure; I50.32 Chronic diastolic (congestive) heart failure
CPT/HCPCS: 36415; 80048

== ENCOUNTER 2022-12-04 11:00 | Outpatient (CLI) | payer MEDICAID, SELFPAY ==
[2022-12-04 11:58] LABS: Anion Gap 15.7 (5-19); Blood Urea Nitrogen 25 mg/dL (8-23); Calcium 8.7 mg/dL (8.5-10.5); Carbon Dioxide 40 mmol/L (22-29); Chloride 90 mmol/L (98-107); Glomerular Filtration Rate 67.8 mL/min (90-130); Glucose 120 mg/dL (65-115); NT Pro B Type Natriuretic Pept 959 pg/mL (0-125); Osmolality Calculated 302 mOsm/kg (285-295); Sodium 143 mmol/L (136-145)
[2022-12-04 14:50] LABS: Potassium 2.7 mmol/L (3.5-5.1)
== END 2022-12-04 11:01 | disposition home or self-care (01) ==
PROVIDERS: PCP Nurse Practitioner Family; Visit Provider Internal Medicine Cardiovascular Disease
DX: I10 Essential (primary) hypertension (principal); I25.10 Atherosclerotic heart disease of native coronary artery without angina pectoris; I49.3 Ventricular premature depolarization
CPT/HCPCS: 80048; 83880

== ENCOUNTER 2022-12-09 11:54 | Outpatient (CLI) | payer MEDICAID, SELFPAY ==
[2022-12-09 12:33] LABS: Anion Gap 9.8 (5-19); Blood Urea Nitrogen 17 mg/dL (8-23); Calcium 8.6 mg/dL (8.5-10.5); Chloride 93 mmol/L (98-107); Glomerular Filtration Rate 85.5 mL/min (90-130); Glucose 112 mg/dL (65-115); Osmolality Calculated 298 mOsm/kg (285-295); Sodium 143 mmol/L (136-145)
[2022-12-09 13:50] LABS: Carbon Dioxide 43 mmol/L (22-29); Potassium 2.8 mmol/L (3.5-5.1)
== END 2022-12-09 11:55 | disposition home or self-care (01) ==
PROVIDERS: PCP Nurse Practitioner Family; Visit Provider Internal Medicine Cardiovascular Disease
DX: R06.02 Shortness of breath (principal); I50.32 Chronic diastolic (congestive) heart failure; I25.10 Atherosclerotic heart disease of native coronary artery without angina pectoris
CPT/HCPCS: 80048

== ENCOUNTER 2022-12-12 09:11 | Inpatient (IN) | payer MEDICAID, SELFPAY ==
[2022-12-12] VITALS (12 sets, daily range): BP systolic 102–131; BP diastolic 65–87; PULSE 64–89; RESP 11–18; TEMP 36.7–36.9; O2SAT 90–97; BMI 43.3
[2022-12-12 07:58] LABS: Basophils # 0.1 10^3/uL (0.0-0.1); Basophils % 0.7 %; Eosinophils # 0.3 10^3/uL (0.0-0.8); Eosinophils % 2.3 %; Hematocrit 50.2 % (37-53); Lymphocytes # 3.8 10^3/uL (0.8-4.8); Lymphocytes % 28.6 %; Mean Corpuscular HGB Conc 34.9 g/dL (30-55); Mean Corpuscular Hemoglobin 33.8 pg (27-33); Mean Corpuscular Volume 96.9 fl (82-101); Monocytes # 1.1 10^3/uL (0.2-0.9); Monocytes % 8.4 %; Neutrophils # 8.01 10^3/uL (1.8-7.7); Neutrophils % 59.5 %; Nucleated Red Blood Cells % 0.2 %; Platelet Count 249 10^3/cmm (157-399); Red Blood Count 5.18 10^6/uL (3.85-5.65); Red Cell Distribution Width 16.1 % (12.1-15.1); White Blood Count 13.45 10^3/uL (3.29-11.43)
[2022-12-12 08:04] LABS: Anion Gap 14.1 (5-19); Blood Urea Nitrogen 18 mg/dL (8-23); Calcium 8.8 mg/dL (8.5-10.5); Carbon Dioxide 38 mmol/L (22-29); Chloride 91 mmol/L (98-107); Glomerular Filtration Rate 67.8 mL/min (90-130); Glucose 106 mg/dL (65-115); Osmolality Calculated 292 mOsm/kg (285-295); Potassium 3.1 mmol/L (3.5-5.1); Sodium 140 mmol/L (136-145)
[2022-12-12 09:12] LABS: NT Pro B Type Natriuretic Pept 2121 pg/mL (0-125)
--- NOTE | 2022-12-12 09:15 | PM.HP ---
Providers/Chief Complaint Admitting Physician: Svitlana Casey MD Primary Care Provider: Jose Ramon Salguero NP Chief Complaint: R06.02 History of Present Illness Crow Will is a 62 year old male with PMHx of hypertension, chronic active smoker 2-3 PPD for 45 years, CAD, h/o NSTEMI in 08/2017 s/p ANNA to mLAD, D2 and LCX, COPD/emphysema, severe MANUELITO/OHS, morbid obesity (BMI>43), chronic respiratory failure, lung nodules, and RBBB. He also has frequent PVC's and PSVC. His statin was stopped because of myalgias and arthralgias after cutting back on dose did not help with his symptoms. He has been having worsening exertional SOB and was noted to have dilated PA on CTA chest and RV dilation on recent echo. Last stress test was about 1 and 1/2 years ago and did not show any ischemia. He was diuresed outpatient that led to hypokalemia and even with PO potassium replacement potassium today in 3.1. He also was taken off of metolazone and lasix was cut in 03/28. He is having significant leg and abdominal swelling. He c/o orthopnea and PND for last 2 days. Initially plan was to do outpatient left and right heart cath. Given above findings, I will admit him. Review of Systems Const: Denies: fever(s) or chills Eyes: Denies: change in vision Card: Reports: edema, swelling of feet/ankles and dyspnea on exertion; Denies: chest pain, palpitations, lightheadedness, syncope or orthopnea Resp: Reports: dyspnea; Denies: productive cough or non-productive cough GI: Denies: abdominal pain, nausea or vomiting Musc: Reports: neck pain, back pain and joint pain Neuro: Denies: headache(s) or dizziness Psych: Denies: anxiety or depression Jacob/Lymph: Denies: easy bruising or easy bleeding Medications/Allergies Home Medications Medication Instructions Recorded Confirmed Last Taken Type allopurinol 300 mg tablet 300 mg PO BID 04/17/19 12/12/22 12/11/22 07:00 History aspirin 81 mg tablet,delayed 81 mg PO DAILY #90 tabs 01/07/20 12/12/22 12/11/22 07:00 Rx release (Adult Low Dose Aspirin) bupropion HCl 300 mg 24 hr tablet, 300 mg PO .1 day 06/09/20 12/12/22 12/11/22 07:00 History extended release (Wellbutrin XL) cyclobenzaprine 10 mg tablet 10 mg PO TID PRN muscle spasm #90 04/09/21 12/12/22 12/11/22 07:00 Rx tabs nicotine (polacrilex) 2 mg gum 2 mg buccal Q2H PRN nicotine 10/06/21 12/12/22 12/11/22 07:00 Rx cravings #50 ea clopidogrel 75 mg tablet 75 mg PO QDAY #90 tabs 02/15/22 12/12/22 12/11/22 07:00 Rx isosorbide mononitrate 30 mg 30 mg PO QAM #90 tabs 02/15/22 12/12/22 12/11/22 07:00 Rx tablet,extended release 24 hr amlodipine 5 mg tablet 5 mg PO DAILY #90 tabs 05/13/22 12/12/22 12/11/22 07:00 Rx albuterol sulfate 90 mcg/actuation 2 inh inhalation Q8H PRN shortness 06/15/22 12/12/22 12/11/22 07:00 Rx aerosol inhaler (Ventolin HFA) of breath or wheezing #8.5 grams montelukast 10 mg tablet 10 mg PO DAILY #90 tabs 09/07/22 12/12/22 12/11/22 07:00 Rx (Singulair) budesonide-formoterol HFA 80 2 puff inhalation BID #10.2 grams 09/12/22 12/12/22 12/11/22 07:00 Rx mcg-4.5 mcg/actuation aerosol inhaler (Symbicort) hydrocodone 5 mg-acetaminophen 325 1 tab PO Q6H PRN pain #20 tabs 09/15/22 12/12/22 12/11/22 07:00 Rx mg tablet albuterol sulfate 2.5 mg/3 mL 2.5 mg (3 mL) inhalation Q6H #180 09/21/22 12/12/22 12/11/22 07:00 Rx (0.083 %) solution for nebulization mL tiotropium bromide 18 mcg capsule 1 cap inhalation DAILY #60 09/21/22 12/12/22 12/11/22 07:00 Rx with inhalation device (Spiriva inhalations with HandiHaler) metolazone 2.5 mg tablet 2.5 mg PO .every other day #30 tabs 10/03/22 12/12/22 12/11/22 07:00 Rx furosemide 40 mg tablet 60 mg PO BID #270 tabs 11/15/22 12/12/22 12/11/22 07:00 Rx lisinopril 10 mg tablet 10 mg PO DAILY #90 tabs 11/15/22 12/12/22 12/11/22 07:00 Rx magnesium oxide 400 mg PO DAILY PRN other 11/15/22 12/12/22 12/11/22 07:00 History metoprolol tartrate 50 mg tablet 50 mg PO DIRECTED 11/15/22 12/12/22 12/11/22 07:00 History nitroglycerin 0.4 mg sublingual 0.4 mg sublingual Q5M PRN chest 11/15/22 12/12/22 12/11/22 07:00 Rx tablet (Nitrostat) pain #25 tabs diltiazem HCl 120 mg See Rx Instructions .Route 12/06/22 12/12/22 12/11/22 07:00 Rx capsule,extended release 24 hr .COMPLEX #90 caps potassium chloride 20 mEq 20 meq PO BID #180 tabs 12/06/22 12/12/22 12/11/22 07:00 Rx tablet,extended release(part/cryst) (Klor-Con M) Allergies Allergy/AdvReac Type Severity Reaction Status Date / Time propoxyphene Allergy HIVES Verified 12/09/22 12:33 [From Darvocet-N 100] PFSH Acute PFSH: Medical History (Updated 12/12/22 @ 09:25 by Svitlana Casey MD) CAD (coronary artery disease) Cervical disc disorder with myelopathy of mid-cervical region Diastolic CHF Dyslipidemia Encounter for long-term opiate analgesic use HTN (hypertension) Long-term use of high-risk medication PVC (premature ventricular contraction) Smoker Spondylolisthesis Surgical History Hx of decompression of ulnar nerve RIGHT Previous back surgery LOWER BACK PLUS YEARS AGO S/P carpal tunnel release RIGHT S/P cholecystectomy Family History Other Lupus Rheumatoid arthritis Social History Smoking and tobacco status: current every day smoker cigarettes Packs smoked per day: 2 Years cigarettes smoked: 48 [ Other cigarette details: Started at age 13] Alcohol intake: never Substance/Drug Use: never Vitals/I&O/Wt Vital Signs Temp Pulse Resp BP Pulse Ox O2 Del Method O2 Flow Rate 98.4 F 64 18 131/87 95 Nasal Cannula 3 12/12/22 07:10 12/12/22 07:10 12/12/22 07:10 12/12/22 07:10 12/12/22 07:10 12/12/22 07:10 12/12/22 07:10 Cumulative I&O 11/25/22 10:38 thru 12/12/22 14:11 Intake Total 105 Output Total 1830 Balance -1725 Weight last 48 hrs Weight 285 lb Physical Exam Narrative: GENERAL: obese man sitting propped up in bed in no acute distress HEENT: Extraocular movement intact. PNo pallor or icterus. NECK: central trachea, +JVD, No carotid bruit. short thick neck CARDIOVASCULAR SYSTEM: S1-S2 regular. No murmur rubs or gallops. RESPIRATORY SYSTEM: Chest clear to auscultation. No wheezes rhonchi or rubs heard. No use of accessory muscles. ABDOMEN: Soft, nontender and nondistended. Normal bowel sounds present. No hepatosplenomegaly appreciated. abdominal wall edema+ EXTREMITIES: No cyanosis, 3+edema, some sacral edema+. LE erythema+. MODEL AND DYE PERSON: Patient is alert oriented ?3. No focal neurological deficits. SKIN: Normal turgor and temperature. PSYCH: Normal insight and judgment. Data 12/12/22 07:31 12/12/22 07:30 Other data: Procedure(s): CV. echo complete* [id number] ?CONCLUSIONS ?LV systolic function is normal with EF of 60 to 65%. ?Grade 1 diastolic dysfunction. ?Right ventricle appears to be dilated. ?Trace mitral regurgitation ?Mild tricuspid regurgitation ?Compared to prior echocardiogram from 2021, right ventricle?appears to be dilated ?Carlos Alberto Loaiza MD? ?(Electronically Signed) CTA chest (06/28/22) IMPRESSION: 1. ? Negative for pulmonary embolus. 2. ? Main pulmonary artery is prominent which can be a finding of chronic pulmonary hypertension. 3. ? Mild cardiomegaly. 4. ? Coronary artery atherosclerotic calcifications. 5. ? Scattered prominent mediastinal lymph nodes measuring up 10 mm, nonspecific. 6. ? Hepatic steatosis. 7. ? Cirrhotic liver suspected. 8. ? Cholecystectomy. 9. ? Mild emphysematous changes suspected. 10. ? Bilateral dependent atelectasis versus minimal infiltrate. Holter Monitor (05/13/22) CONCLUSION: 1.? The baseline rhythm was found to be normal sinus with an overall average heart rate of 64 beats per minute.? Frequent supraventricular ectopics and occasional ventricular ectopics were noted.? There were a total of 8509 ventricular ectopics and 77,401 supraventricular ectopics, comprising 1.5% and 14.37% respectively of the total heartbeats . 2. No significant pauses or bradycardias noted. 3.? The patient triggered events were found to be associated with normal sinus rhythm.? No symptoms are mentioned. 4.? No similar previous studies are available for comparison 07/08/21 Myocardial Perfusion Scan: 1.? Large sizde perfusion abnormality of inferior and inferolateral prieto.? ?There is improved tracer uptake on stress images.? This may represent ?attenuation artifact or old myocardial infarction in right coronary artery ?territory. ?2.? Overall left ventricular systolic function is normal with possibly mild ?hypokinesis of basal inferior wall. ?3.? EKG portion of the study will be reported separately. ?4.? No coronary ischemia based on the study. 07/08/21 Sestamibi Stress Test: 1. No significant EKG changes with the LexiScan infusion. 2. No LexiScan induced chest pain or cardiac arrhythmia. 3. Normal blood pressure and heart rate response. 4. Sestamibi/sestamibi perfusion scan pending; see separate report. -Sleep titration 12/30/2021: BiPAP ST titration with oxygen limited due to continued events and hypoxemia suggestive of chronic respiratory failure.? The patient requires home noninvasive ventilator due to increasing CO2 levels.? NIV more effective than BiPAP to reduce CO2 levels and to prevent further readmissions due to not adequately ventilating the patient. PFTs 03/16/2022: Spirometry showed moderate airflow obstruction with FEV1 FVC Fev1? 1.78L 53% predicted and? and FVC 3.3 L 73% predicted.? There is significant response to bronchodilator.? Lung volumes suggestive of air trapping and hyperinflation. C ( A&P Assessment and plan (1) Exertional shortness of breath: (2) CHF exacerbation: HFpEF and RV failure Plan to diurese with IV diuretics and monitor -f/u BMP -replace electrolytes as needed -will plan for left and right heart cath once diursed and able to lay flat for the procedure (3) Chronic respiratory failure: Chronic hypercapnic respiratory failure-secondary to COPD/obesity hypoventilation syndrome (4) CAD (coronary artery disease): h/o Multivessel CAD Qualifiers: Associated angina: without angina Coronary Disease-Associated Artery/Lesion type: [place] artery [place] vs. transplanted heart: [place] heart Qualified Code(s): I25.10 - Atherosclerotic heart disease of [place] coronary artery without angina pectoris (5) HTN (hypertension): Qualifiers: Hypertension type: essential hypertension Qualified Code(s): I10 - Essential (primary) hypertension (6) Dyslipidemia: (7) MANUELITO (obstructive sleep apnea): (8) PVC (premature ventricular contraction): (9) Smoker: Plan Morbid obesity COPD PHTN likely WHO group 2 and 3: will plan for RHC once diuresed Metabolic alkalosis Attestations Medical Necessity Statement*: needs hospital stay for management of CHF exacerbation Coding Level of Care Code 22043 Diagnoses Exertional shortness of breath R06.02 CHF exacerbation I50.9 Chronic respiratory failure J96.10 CAD (coronary artery disease) I25.10 Associated angina: without angina Coronary Disease-Associated Artery/Lesion type: [place] artery [place] vs. transplanted heart: [place] heart HTN (hypertension) I10 Hypertension type: essential hypertension Dyslipidemia E78.5 MANUELITO (obstructive sleep apnea) G47.33 PVC (premature ventricular contraction) I49.3 Smoker F17.200
--- NOTE | 2022-12-12 09:30 | XR_ITS ---
WS: [id number] XR chest 1V portable [id number] REASON FOR EXAM: SOB FINDINGS: Chest appears unchanged compared to 09/21/2022. Mild tortuosity of the thoracic aorta. Normal heart size. No mediastinal or hilar mass. Calcified granulomatous disease in both hemithoraces. No active pulmonary parenchymal or pleural disease. No lung nodule or lung mass. Mild hyperexpansion. Mild thoracic scoliosis convex right with mild degenerative spondylosis in the mid and lower thoracic spine. IMPRESSION: Stable chest with no acute abnormality.
--- NOTE | 2022-12-12 09:51 | PC.NURSE ---
Around 0900: Transfer orders received. Per Dr. Casey, Studio Operations Engineer In Charge, patient to be admitted to [facility]SU for diuresis prior to right and left heart catherterization. Patient vitals WDL, no c/o pain. Report given to NÉSTOR Mclean. Patient transfered to [facility] from [facility] via wheelchair. All belongings sent with patient.
[2022-12-12] MEDS: lidocaine 1% 5 ML in potassium chloride premix 100 ML 26.25 ML IV (10:06)
[2022-12-12] MEDS: potassium chloride ER 10 mEq Tablet 20 MEQ PO ×2 (10:07→17:48)
[2022-12-12] MEDS: acetaZOLAMIDE 250 mg Tablet 500 MG PO (10:07)
[2022-12-12] MEDS: montelukast sodium 10 mg Tablet PO (10:08)
[2022-12-12] MEDS: lisinopril 10 mg Tablet PO (10:08)
[2022-12-12] MEDS: aspirin 81 mg EC Tablet PO (10:08)
[2022-12-12] MEDS: amlodipine 5 mg Tablet PO (10:08)
[2022-12-12] MEDS: FUROsemide 10 mg/mL SDV 10mL 80 MG IVP ×2 (11:03→21:47)
[2022-12-12] MEDS: ipratropium-albuterol 3 mL Neb INHALATION ×2 (11:11→19:54)
[2022-12-12] MEDS: enoxaparin 40 mg/0.4 mL Syringe SUBCUT (13:01)
--- NOTE | 2022-12-12 14:02 | ECG_ITS ---
[facility] Test Date: 2022-12-12 Pat Name: Crow Will Department: Room: 111 Gender: Male Pharmacy Director: : [id number] Requested By: Svitlana Casey Order Number: [id number] Kevin MD: Svitlana Casey M.D. Measurements Intervals [place] Rate: 101 P: 58 SC: 198 QRS: 261 QRSD: 146 T: 31 QT: 348 QTc: 452 Interpretive Statements SINUS TACHYCARDIA WITH OCCASIONAL VENTRICULAR PREMATURE COMPLEXES WITH FREQUENT SUPRAVENTRICULAR PREMATURE COMPLEXES RIGHT AXIS DEVIATION [QRS AXIS > 100] RIGHT BUNDLE BRANCH BLOCK [120+ ms QRS DURATION, UPRIGHT V1, 40+ ms S IN I/aVL/V4/V5/V6] ST DEPRESSION, CONSIDER SUBENDOCARDIAL INJURY [0.1+ mV ST DEPRESSION] Compared to ECG 09/15/2022 14:16:50 Right-axis deviation now present Sinus rhythm no longer present Indeterminate axis no longer present ST (T wave) deviation still present Electronically Signed On 12-12-2022 21:35:46 CDT by Svitlana Casey M.D. [id number]
[2022-12-12] MEDS: HYDROcodone-acetaminophen 5-325 mg Tablet 1 TAB PO ×2 (16:26→23:36)
[2022-12-12] MEDS: magnesium lactate 84 mg Tablet PO (17:48)
[2022-12-12] MEDS: metoprolol tartrate 50 mg Tablet PO (17:48)
[2022-12-12] MEDS: allopurinol 300 mg Tablet PO (17:48)
[2022-12-12] MEDS: potassium chloride ER 20 mEq Tablet PO (17:48)
[2022-12-12] MEDS: budesonide 0.5 mg/2 mL Neb INHALATION (19:55)
--- NOTE | 2022-12-12 20:40 | PC.NURSE ---
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 Covering service notified dr Casey. Patient presents with outpatient right and left heart cath due to worsening sob and generalized body edema. Orders reviewed & will continue to monitor. Patient and/or public relations representative oriented to environment, equipment, and informed of the following as found in the admission booklet: patient rights & responsibilities, visitor policy, hand and respiratory hygiene practice. Other education includes: measure intake and output, IV lasix diureses, Fluid restriction 1500. Patient and/or public relations representative verbalizes understanding.
[2022-12-13] VITALS (15 sets, daily range): BP systolic 116–141; BP diastolic 67–100; PULSE 62–100; RESP 14–20; TEMP 36.4–37; O2SAT 89–97
[2022-12-13 04:37] LABS: Basophils # 0.1 10^3/uL (0.0-0.1); Basophils % 0.8 %; Eosinophils # 0.3 10^3/uL (0.0-0.8); Eosinophils % 2.5 %; Hematocrit 50.8 % (37-53); Lymphocytes # 3.4 10^3/uL (0.8-4.8); Lymphocytes % 31.2 %; Mean Corpuscular HGB Conc 34.1 g/dL (30-55); Mean Corpuscular Volume 99.8 fl (82-101); Mean Platelet Volume 10.1 fL (7.4-10.4); Monocytes # 1.2 10^3/uL (0.2-0.9); Monocytes % 10.8 %; Neutrophils # 5.96 10^3/uL (1.8-7.7); Neutrophils % 54.2 %; Nucleated Red Blood Cells % 0.2 %; Platelet Count 243 10^3/cmm (157-399); Red Blood Count 5.09 10^6/uL (3.85-5.65); Red Cell Distribution Width 16.1 % (12.1-15.1); White Blood Count 10.97 10^3/uL (3.29-11.43)
[2022-12-13 05:03] LABS: Alanine Aminotransferase 36 U/L (0-41); Albumin Level 3.7 g/dL (3.5-5.2); Alkaline Phosphatase 75 U/L (40-130); Anion Gap 9.8 (5-19); Aspartate Amino Transferase 29 U/L (0-40); Blood Urea Nitrogen 21 mg/dL (8-23); Calcium 9.2 mg/dL (8.5-10.5); Chloride 92 mmol/L (98-107); Globulin 3.1 g/dL (1.3-4.6); Glomerular Filtration Rate 55.9 mL/min (90-130); Glucose 91 mg/dL (65-115); Magnesium 2.2 mg/dL (1.7-2.3); Osmolality Calculated 297 mOsm/kg (285-295); Sodium 142 mmol/L (136-145); Total Bilirubin 0.8 mg/dL (0.15-1.2); Total Protein 6.8 g/dL (6.6-8.7)
[2022-12-13] MEDS: HYDROcodone-acetaminophen 5-325 mg Tablet 1 TAB PO ×2 (05:04→08:13)
[2022-12-13] MEDS: isosorbide mononitrate ER 30 mg Tablet PO (05:04)
[2022-12-13 05:09] LABS: Carbon Dioxide 43 mmol/L (22-29); Potassium 2.8 mmol/L (3.5-5.1)
[2022-12-13] MEDS: potassium chloride ER 20 mEq Tablet 60 MEQ PO (05:55)
[2022-12-13] MEDS: ipratropium-albuterol 3 mL Neb INHALATION ×4 (08:08→19:42)
[2022-12-13] MEDS: budesonide 0.5 mg/2 mL Neb INHALATION ×2 (08:08→19:42)
[2022-12-13] MEDS: lidocaine 1% 5 ML in potassium chloride premix 100 ML 26.25 ML IV (08:11)
[2022-12-13] MEDS: clopidogrel 75 mg Tablet PO (08:12)
[2022-12-13] MEDS: metoprolol tartrate 50 mg Tablet 75 MG PO (08:12)
[2022-12-13] MEDS: FUROsemide 10 mg/mL SDV 10mL 60 MG IVP ×2 (08:12→17:50)
[2022-12-13] MEDS: lisinopril 10 mg Tablet PO (08:13)
[2022-12-13] MEDS: potassium chloride ER 20 mEq Tablet 40 MEQ PO ×2 (08:13→17:50)
[2022-12-13] MEDS: acetaZOLAMIDE 250 mg Tablet 500 MG PO (08:13)
[2022-12-13] MEDS: magnesium lactate 84 mg Tablet PO ×2 (08:13→17:49)
[2022-12-13] MEDS: aspirin 81 mg EC Tablet PO (08:13)
[2022-12-13] MEDS: montelukast sodium 10 mg Tablet PO (08:14)
[2022-12-13] MEDS: pantoprazole DR 40 mg Tablet PO (08:14)
[2022-12-13] MEDS: allopurinol 300 mg Tablet PO ×2 (08:14→17:50)
[2022-12-13] MEDS: buPROPion XL (24 HR) 300 mg Tablet PO (08:14)
--- NOTE | 2022-12-13 08:52 | PM.PN ---
Subjective Subjective: feels bad, c/o pain in chest, abdomen and back Medications: Reviewed: Yes Vitals/I&O/Wt Last Vital Signs Temp 97.6 F 12/13/22 07:44 Pulse 87 12/13/22 08:00 Resp 16 12/13/22 08:00 BP 126/69 12/13/22 07:44 Pulse Ox 94 12/13/22 08:00 O2 Del Method Nasal Cannula 12/13/22 08:00 O2 Flow Rate 2 12/13/22 08:00 FiO2 35 12/13/22 07:51 12/12/22 12/13/22 12/13/22 22:59 06:59 14:59 Intake Total 360 / 465 Output Total 1080 / 2910 1900 / 4810 Balance -720 / -2445 -1900 / -4345 Weight last 48 hrs Weight 357 lb 1 oz Weight 285 lb Physical Exam Narrative: GENERAL: obese man sitting propped up in bed in no acute distress HEENT: Extraocular movement intact. PNo pallor or icterus. NECK: central trachea, +JVD, No carotid bruit. short thick neck CARDIOVASCULAR SYSTEM: S1-S2 regular. No murmur rubs or gallops. RESPIRATORY SYSTEM: Chest clear to auscultation. No wheezes rhonchi or rubs heard. No use of accessory muscles. ABDOMEN: Soft, nontender and nondistended. Normal bowel sounds present. No hepatosplenomegaly appreciated. abdominal wall edema+ EXTREMITIES: No cyanosis, 3+edema, some sacral edema+. LE erythema+. ANTENNA SPECIALIST: Patient is alert oriented ?3. No focal neurological deficits. SKIN: Normal turgor and temperature. PSYCH: Normal insight and judgment. Data 12/14/22 04:04 12/14/22 04:04 A&P Assessment and plan (1) Exertional shortness of breath: (2) CHF exacerbation: HFpEF and RV failure Plan to diurese with IV diuretics and monitor -f/u BMP -replace electrolytes as needed -will plan for left and right heart cath once diursed and able to lay flat for the procedure (3) Chronic respiratory failure: Chronic hypercapnic respiratory failure-secondary to COPD/obesity hypoventilation syndrome (4) CAD (coronary artery disease): h/o Multivessel CAD Qualifiers: Associated angina: without angina Coronary Disease-Associated Artery/Lesion type: [place] artery [place] vs. transplanted heart: [place] heart Qualified Code(s): I25.10 - Atherosclerotic heart disease of [place] coronary artery without angina pectoris (5) HTN (hypertension): Qualifiers: Hypertension type: essential hypertension Qualified Code(s): I10 - Essential (primary) hypertension (6) Dyslipidemia: (7) MANUELITO (obstructive sleep apnea): (8) PVC (premature ventricular contraction): (9) Smoker: Plan Morbid obesity COPD PHTN likely WHO group 2 and 3: will plan for RHC once diuresed Metabolic alkalosis Attestations Medical Necessity Statement*: needs hospital stay for CHF excaerbation Coding Level of Care Code 99428 Diagnoses Exertional shortness of breath R06.02 CHF exacerbation I50.9 Chronic respiratory failure J96.10 CAD (coronary artery disease) I25.10 Associated angina: without angina Coronary Disease-Associated Artery/Lesion type: [place] artery [place] vs. transplanted heart: [place] heart HTN (hypertension) I10 Hypertension type: essential hypertension Dyslipidemia E78.5 MANUELITO (obstructive sleep apnea) G47.33 PVC (premature ventricular contraction) I49.3 Smoker F17.200
--- NOTE | 2022-12-13 09:46 | PC.CHAP ---
Pastoral Care Encounter/Spiritual Assessment Type of Contact [] Declined electrotherapist visit [] Patient/Family/Request visit [] Outpatient visit [] Follow-up visit [] Physician referral [] Code/Alert [x] Routine visit [] Staff referral [] Actively dying [] Patient sleeping [] Family support [] [] Out of room [] Palliative care [] [] Receiving care in room [] Pre-surgical visit [] Trauma [] Long length of stay [] ICU visit [] Other: Relational/Emotional Strength [x] Patient feels connected with others/family/visitors/staff [] Distress [] Loneliness/isolation [] Abandonment Spirituality of Patient [x] Person of Renae [] Attends Adventism of their Renae [x] Believes in Prayer [] Reads Bible or Christian materials [] There are Spiritual issues 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 addressed 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] Prayer [x Active listening [] Non-anxious presence [x] Spiritual/emotional support [] Crisis/trauma care [] Spiritual counseling [] Bereavement support [] Provided bereavement packet [] Provided Bible/devotional materials [] Provided toy/stuffed animal, coloring book to patient or family member [] Provided Communion [] Anointing/Kimberly [] Salvation [] Completed spiritual assessment [] Other: Impact on Illness or Injury [] Angry [] Fearful [] Anxious [] Often cries [] Exhaustion [] Unable to work [] Unable to attend baptism [] Unable to walk/stand [] Unable to read [] Unable to drive [] Unable to eat/drink [] Unable to sleep [] Unable to be with family [] Patient intubated [] Other: Summary Time spent with patient 5 min
[2022-12-13] MEDS: oxyCODONE 5 mg IR Tab/Cap 15 MG PO ×2 (11:41→17:49)
[2022-12-13] MEDS: enoxaparin 40 mg/0.4 mL Syringe SUBCUT (11:41)
--- NOTE | 2022-12-13 17:08 | PC.NURSE ---
Physician Order Lasix 60mg IVP ONCE
[2022-12-13] MEDS: metoprolol tartrate 50 mg Tablet PO (17:50)
[2022-12-13] MEDS: cyclobenzaprine 10 mg Tablet PO (21:21)
[2022-12-14] VITALS (34 sets, daily range): BP systolic 100–120; BP diastolic 56–87; PULSE 0–91; RESP 12–27; TEMP 36.8–37.2; O2SAT 88–96
[2022-12-14] MEDS: oxyCODONE 5 mg IR Tab/Cap 15 MG PO ×4 (00:24→21:36)
[2022-12-14 04:45] LABS: Basophils # 0.1 10^3/uL (0.0-0.1); Basophils % 0.7 %; Eosinophils # 0.3 10^3/uL (0.0-0.8); Eosinophils % 2.3 %; Hematocrit 51.7 % (37-53); Lymphocytes # 3.3 10^3/uL (0.8-4.8); Lymphocytes % 26.4 %; Mean Corpuscular Hemoglobin 33.9 pg (27-33); Mean Corpuscular Volume 99.6 fl (82-101); Mean Platelet Volume 10.1 fL (7.4-10.4); Monocytes # 1.1 10^3/uL (0.2-0.9); Monocytes % 9.1 %; Neutrophils # 7.53 10^3/uL (1.8-7.7); Neutrophils % 61.1 %; Nucleated Red Blood Cells % 0 %; Platelet Count 252 10^3/cmm (157-399); Red Blood Count 5.19 10^6/uL (3.85-5.65); Red Cell Distribution Width 16.3 % (12.1-15.1); White Blood Count 12.32 10^3/uL (3.29-11.43)
[2022-12-14 05:13] LABS: Alanine Aminotransferase 33 U/L (0-41); Albumin Level 3.7 g/dL (3.5-5.2); Alkaline Phosphatase 77 U/L (40-130); Anion Gap 11.1 (5-19); Aspartate Amino Transferase 25 U/L (0-40); Blood Urea Nitrogen 24 mg/dL (8-23); Carbon Dioxide 38 mmol/L (22-29); Chloride 93 mmol/L (98-107); Globulin 3.1 g/dL (1.3-4.6); Glomerular Filtration Rate 61.3 mL/min (90-130); Glucose 110 mg/dL (65-115); Magnesium 2.3 mg/dL (1.7-2.3); Osmolality Calculated 293 mOsm/kg (285-295); Potassium 3.1 mmol/L (3.5-5.1); Sodium 139 mmol/L (136-145); Total Bilirubin 0.7 mg/dL (0.15-1.2); Total Protein 6.8 g/dL (6.6-8.7)
[2022-12-14] MEDS: isosorbide mononitrate ER 30 mg Tablet PO (05:16)
[2022-12-14] MEDS: ipratropium-albuterol 3 mL Neb INHALATION ×4 (07:36→20:35)
[2022-12-14] MEDS: budesonide 0.5 mg/2 mL Neb INHALATION ×2 (07:36→20:35)
[2022-12-14] MEDS: pantoprazole DR 40 mg Tablet PO (08:06)
[2022-12-14] MEDS: aspirin 81 mg EC Tablet PO (08:06)
[2022-12-14] MEDS: cyclobenzaprine 10 mg Tablet PO ×3 (08:06→23:11)
[2022-12-14] MEDS: potassium chloride ER 20 mEq Tablet 40 MEQ PO ×3 (08:06→20:13)
[2022-12-14] MEDS: lisinopril 10 mg Tablet PO (08:06)
[2022-12-14] MEDS: buPROPion XL (24 HR) 300 mg Tablet PO (08:06)
[2022-12-14] MEDS: allopurinol 300 mg Tablet PO ×2 (08:06→18:03)
[2022-12-14] MEDS: magnesium lactate 84 mg Tablet PO ×2 (08:06→18:03)
[2022-12-14] MEDS: clopidogrel 75 mg Tablet PO (08:06)
[2022-12-14] MEDS: montelukast sodium 10 mg Tablet PO (08:07)
[2022-12-14] MEDS: metoprolol tartrate 50 mg Tablet 75 MG PO (08:07)
--- NOTE | 2022-12-14 11:17 | PM.PN ---
Subjective Subjective: Patient is still short of breath. Has been diuresing. Vitals/I&O/Wt Last Vital Signs Temp 98.2 F 12/14/22 04:00 Pulse 86 12/14/22 08:20 Resp 17 12/14/22 08:20 BP 104/70 12/14/22 08:20 Pulse Ox 93 12/14/22 08:10 O2 Del Method Nasal Cannula 12/14/22 08:10 O2 Flow Rate 2 12/14/22 08:10 FiO2 35 12/13/22 07:51 12/13/22 12/14/22 12/14/22 22:59 06:59 14:59 Output Total 550 / 1000 850 / 1850 Balance -550 / -415 -850 / -1265 Weight last 48 hrs Weight 358 lb Weight 356 lb 1 oz Weight 357 lb 1 oz Physical Exam Narrative: GENERAL: Patient is alert, awake and oriented x3. [] NECK: No jugular vein distension. [] HEENT: No cyanosis. No icterus. No pallor. [] HEART: Regular S1 and S2. No murmur, rub or gallop. [] LUNGS: Diminished air entry CENTRAL NERVOUS SYSTEM: Grossly nonfocal. [] EXTREMITIES: Lower extremities with 2+ edema bilaterally Data 12/14/22 04:04 12/14/22 04:04 A&P Assessment and plan (1) Exertional shortness of breath: (2) CHF exacerbation: HFpEF and RV failure We will uptitrate Lasix to 60 mg 3 times daily. We will also add Metolazone. Recheck BMP in the PM -will plan for left and right heart cath once diursed and able to lay flat for the procedure (3) Chronic respiratory failure: Chronic hypercapnic respiratory failure-secondary to COPD/obesity hypoventilation syndrome (4) CAD (coronary artery disease): h/o Multivessel CAD Qualifiers: Coronary Disease-Associated Artery/Lesion type: [place] artery [place] vs. transplanted heart: [place] heart Associated angina: without angina Qualified Code(s): I25.10 - Atherosclerotic heart disease of [place] coronary artery without angina pectoris (5) HTN (hypertension): Qualifiers: Hypertension type: essential hypertension Qualified Code(s): I10 - Essential (primary) hypertension (6) Dyslipidemia: (7) MANUELITO (obstructive sleep apnea): (8) PVC (premature ventricular contraction): (9) Smoker: Plan Morbid obesity COPD PHTN likely WHO group 2 and 3: will plan for RHC once diuresed Metabolic alkalosis Attestations Medical Necessity Statement*: Care expected to cross 2 midnights. Patient requires further diuresis as scheduled and significantly volume overloaded. Coding Level of Care Code Acute Code for Chg Fwd Diagnoses Exertional shortness of breath R06.02 CHF exacerbation I50.9 Chronic respiratory failure J96.10 CAD (coronary artery disease) I25.10 Coronary Disease-Associated Artery/Lesion type: [place] artery [place] vs. transplanted heart: [place] heart Associated angina: without angina HTN (hypertension) I10 Hypertension type: essential hypertension Dyslipidemia E78.5 MANUELITO (obstructive sleep apnea) G47.33 PVC (premature ventricular contraction) I49.3 Smoker F17.200
[2022-12-14] MEDS: metOLazone 5 MG Tablet 2.5 MG PO (12:20)
[2022-12-14] MEDS: enoxaparin 40 mg/0.4 mL Syringe SUBCUT (12:20)
[2022-12-14] MEDS: FUROsemide 10 mg/mL SDV 10mL 60 MG IVP ×2 (14:53→20:13)
[2022-12-14] MEDS: metoprolol tartrate 50 mg Tablet PO (18:03)
[2022-12-14 19:18] LABS: Anion Gap 12.9 (5-19); Blood Urea Nitrogen 25 mg/dL (8-23); Calcium 9.1 mg/dL (8.5-10.5); Carbon Dioxide 38 mmol/L (22-29); Chloride 89 mmol/L (98-107); Glomerular Filtration Rate 67.8 mL/min (90-130); Glucose 143 mg/dL (65-115); Osmolality Calculated 291 mOsm/kg (285-295); Sodium 137 mmol/L (136-145)
[2022-12-14 19:20] LABS: Potassium 2.9 mmol/L (3.5-5.1)
[2022-12-15] VITALS (18 sets, daily range): BP systolic 107–149; BP diastolic 66–83; PULSE 72–85; RESP 16–24; TEMP 36.4–36.6; O2SAT 89–94
[2022-12-15] MEDS: albuterol 2.5 mg/3 mL Neb INHALATION (03:27)
[2022-12-15] MEDS: oxyCODONE 5 mg IR Tab/Cap 15 MG PO ×2 (03:37→18:15)
[2022-12-15] MEDS: isosorbide mononitrate ER 30 mg Tablet PO (05:00)
[2022-12-15 05:05] LABS: Basophils # 0.1 10^3/uL (0.0-0.1); Basophils % 0.5 %; Eosinophils # 0.2 10^3/uL (0.0-0.8); Hematocrit 51.9 % (37-53); Lymphocytes # 3.1 10^3/uL (0.8-4.8); Lymphocytes % 26.4 %; Mean Corpuscular HGB Conc 34.1 g/dL (30-55); Mean Corpuscular Hemoglobin 33.8 pg (27-33); Mean Corpuscular Volume 99.2 fl (82-101); Mean Platelet Volume 10.2 fL (7.4-10.4); Monocytes # 1.1 10^3/uL (0.2-0.9); Neutrophils # 7.22 10^3/uL (1.8-7.7); Neutrophils % 61.6 %; Nucleated Red Blood Cells % 0.2 %; Platelet Count 249 10^3/cmm (157-399); Red Blood Count 5.23 10^6/uL (3.85-5.65); Red Cell Distribution Width 16.1 % (12.1-15.1); White Blood Count 11.73 10^3/uL (3.29-11.43)
[2022-12-15 05:28] LABS: Alanine Aminotransferase 31 U/L (0-41); Albumin Level 3.9 g/dL (3.5-5.2); Alkaline Phosphatase 78 U/L (40-130); Anion Gap 12.3 (5-19); Aspartate Amino Transferase 25 U/L (0-40); Blood Urea Nitrogen 28 mg/dL (8-23); Calcium 9.3 mg/dL (8.5-10.5); Chloride 89 mmol/L (98-107); Globulin 3.4 g/dL (1.3-4.6); Glomerular Filtration Rate 61.3 mL/min (90-130); Glucose 100 mg/dL (65-115); Magnesium 2.4 mg/dL (1.7-2.3); Osmolality Calculated 294 mOsm/kg (285-295); Potassium 3.3 mmol/L (3.5-5.1); Sodium 139 mmol/L (136-145); Total Bilirubin 0.7 mg/dL (0.15-1.2); Total Protein 7.3 g/dL (6.6-8.7)
[2022-12-15 05:30] LABS: Carbon Dioxide 41 mmol/L (22-29)
--- NOTE | 2022-12-15 07:23 | P.PN_ITS ---
Subjective Subjective: Patient is feeling the same. He has been diuresing well. No chest pain. Vitals/I&O/Wt Last Vital Signs Temp 97.8 F 12/15/22 04:06 Pulse 80 12/15/22 06:00 Resp 24 H 12/15/22 03:56 BP 149/83 12/15/22 03:56 Pulse Ox 91 12/15/22 03:56 O2 Del Method Nasal Cannula 12/15/22 03:56 O2 Flow Rate 4 12/15/22 03:56 FiO2 35 12/15/22 00:33 12/14/22 12/15/22 12/15/22 22:59 06:59 14:59 Intake Total 400 / 400 100 / 500 Output Total 1525 / 1525 375 / 1900 Balance -1125 / -1125 -275 / -1400 Weight last 48 hrs Weight 358 lb Weight 356 lb 1 oz Physical Exam Narrative: GENERAL: Patient is alert, awake and oriented x3. [] NECK: No jugular vein distension. [] HEENT: No cyanosis. No icterus. No pallor. [] HEART: Regular S1 and S2. No murmur, rub or gallop. [] LUNGS: Diminished air entry CENTRAL NERVOUS SYSTEM: Grossly nonfocal. [] EXTREMITIES: Lower extremities with 2+ edema bilaterally Data 12/15/22 04:17 12/15/22 04:17 A&P Assessment and plan (1) Exertional shortness of breath: (2) CHF exacerbation: HFpEF and RV failure Contraction alkalosis seen. We will downtitrate Lasix to 60 mg 2 times daily. Continue Metolazone. Recheck BMP in the PM -will plan for left and right heart cath once diursed and able to lay flat for the procedure (3) Chronic respiratory failure: Chronic hypercapnic respiratory failure-secondary to COPD/obesity hypoventilation syndrome (4) CAD (coronary artery disease): h/o Multivessel CAD Qualifiers: Coronary Disease-Associated Artery/Lesion type: [place] artery [place] vs. transplanted heart: [place] heart Associated angina: without angina Qualified Code(s): I25.10 - Atherosclerotic heart disease of [place] coronary artery without angina pectoris (5) HTN (hypertension): Qualifiers: Hypertension type: essential hypertension Qualified Code(s): I10 - Essential (primary) hypertension (6) Dyslipidemia: (7) MANUELITO (obstructive sleep apnea): (8) PVC (premature ventricular contraction): (9) Smoker: Plan Morbid obesity COPD PHTN likely WHO group 2 and 3: will plan for RHC once diuresed Metabolic alkalosis Attestations Medical Necessity Statement*: Care expected to cross 2 midnights. Patient is diuresing well. Will need further diuresis Coding Level of Care Code Acute Code for Chg Fwd Diagnoses Exertional shortness of breath R06.02 CHF exacerbation I50.9 Chronic respiratory failure J96.10 CAD (coronary artery disease) I25.10 Coronary Disease-Associated Artery/Lesion type: [place] artery [place] vs. transplanted heart: [place] heart Associated angina: without angina HTN (hypertension) I10 Hypertension type: essential hypertension Dyslipidemia E78.5 MANUELITO (obstructive sleep apnea) G47.33 PVC (premature ventricular contraction) I49.3 Smoker F17.200
[2022-12-15] MEDS: ipratropium-albuterol 3 mL Neb INHALATION ×4 (08:18→20:29)
[2022-12-15] MEDS: budesonide 0.5 mg/2 mL Neb INHALATION ×2 (08:18→20:29)
[2022-12-15] MEDS: montelukast sodium 10 mg Tablet PO (08:29)
[2022-12-15] MEDS: metoprolol tartrate 50 mg Tablet 75 MG PO (08:29)
[2022-12-15] MEDS: clopidogrel 75 mg Tablet PO (08:29)
[2022-12-15] MEDS: buPROPion XL (24 HR) 300 mg Tablet PO (08:30)
[2022-12-15] MEDS: allopurinol 300 mg Tablet PO ×2 (08:30→18:16)
[2022-12-15] MEDS: potassium chloride ER 20 mEq Tablet 40 MEQ PO ×2 (08:30→18:16)
[2022-12-15] MEDS: pantoprazole DR 40 mg Tablet PO (08:30)
[2022-12-15] MEDS: magnesium lactate 84 mg Tablet PO ×2 (08:30→18:16)
[2022-12-15] MEDS: metOLazone 5 MG Tablet 2.5 MG PO (08:30)
[2022-12-15] MEDS: aspirin 81 mg EC Tablet PO (08:30)
[2022-12-15] MEDS: lisinopril 10 mg Tablet PO (08:30)
[2022-12-15] MEDS: cyclobenzaprine 10 mg Tablet PO (08:31)
[2022-12-15] MEDS: FUROsemide 10 mg/mL SDV 10mL 60 MG IVP ×2 (08:31→18:16)
[2022-12-15] MEDS: enoxaparin 40 mg/0.4 mL Syringe SUBCUT (11:27)
[2022-12-15] MEDS: metoprolol tartrate 50 mg Tablet PO (18:16)
[2022-12-16] VITALS (19 sets, daily range): BP systolic 107–129; BP diastolic 58–83; PULSE 69–82; RESP 15–30; TEMP 36.6–37.2; O2SAT 88–99
[2022-12-16] MEDS: oxyCODONE 5 mg IR Tab/Cap 15 MG PO ×4 (00:07→20:38)
[2022-12-16 04:46] LABS: Alanine Aminotransferase 30 U/L (0-41); Albumin Level 3.7 g/dL (3.5-5.2); Alkaline Phosphatase 72 U/L (40-130); Blood Urea Nitrogen 28 mg/dL (8-23); Carbon Dioxide 40 mmol/L (22-29); Chloride 93 mmol/L (98-107); Glomerular Filtration Rate 75.7 mL/min (90-130); Glucose 101 mg/dL (65-115); Osmolality Calculated 298 mOsm/kg (285-295); Sodium 141 mmol/L (136-145); Total Bilirubin 0.7 mg/dL (0.15-1.2); Total Protein 6.7 g/dL (6.6-8.7)
[2022-12-16 04:48] LABS: Anion Gap 10.9 (5-19); Aspartate Amino Transferase 29 U/L (0-40)
[2022-12-16 04:50] LABS: Potassium 2.9 mmol/L (3.5-5.1)
[2022-12-16] MEDS: isosorbide mononitrate ER 30 mg Tablet PO (06:12)
[2022-12-16] MEDS: budesonide 0.5 mg/2 mL Neb INHALATION ×2 (07:16→20:08)
[2022-12-16] MEDS: ipratropium-albuterol 3 mL Neb INHALATION ×4 (07:16→20:08)
[2022-12-16] MEDS: aspirin 81 mg EC Tablet PO (08:15)
[2022-12-16] MEDS: metOLazone 5 MG Tablet 2.5 MG PO (08:15)
[2022-12-16] MEDS: buPROPion XL (24 HR) 300 mg Tablet PO (08:17)
[2022-12-16] MEDS: montelukast sodium 10 mg Tablet PO (08:17)
[2022-12-16] MEDS: allopurinol 300 mg Tablet PO ×2 (08:17→18:27)
[2022-12-16] MEDS: FUROsemide 10 mg/mL SDV 10mL 60 MG IVP ×2 (08:17→18:27)
[2022-12-16] MEDS: clopidogrel 75 mg Tablet PO (08:17)
[2022-12-16] MEDS: magnesium lactate 84 mg Tablet PO ×2 (08:17→18:27)
[2022-12-16] MEDS: potassium chloride ER 20 mEq Tablet 40 MEQ PO ×2 (08:17→18:27)
[2022-12-16] MEDS: lisinopril 10 mg Tablet PO (08:17)
[2022-12-16] MEDS: pantoprazole DR 40 mg Tablet PO (08:17)
[2022-12-16] MEDS: metoprolol tartrate 50 mg Tablet 75 MG PO (08:18)
[2022-12-16] MEDS: potassium chloride premix 100 ML 25 MEQ IV (10:32)
[2022-12-16] MEDS: lidocaine 1% INJ 10 mL (per mL) 5 ML XX (10:33)
--- NOTE | 2022-12-16 11:19 | P.PN_ITS ---
Subjective Subjective: Patient is diuresing well. Feeling better. Vitals/I&O/Wt Last Vital Signs Temp 97.8 F 12/16/22 07:39 Pulse 69 12/16/22 11:09 Resp 16 12/16/22 11:08 BP 116/72 12/16/22 07:39 Pulse Ox 97 12/16/22 11:09 O2 Del Method BiPAP 12/16/22 11:08 O2 Flow Rate 5 12/16/22 07:17 FiO2 35 12/16/22 11:09 12/15/22 12/16/22 12/16/22 22:59 06:59 14:59 Intake Total 400 / 400 860 / 1260 120 / 120 Output Total 1900 / 1900 2300 / 4200 Balance -1500 / -1500 -1440 / -2940 120 / 120 Weight last 48 hrs Weight 348 lb 8 oz Physical Exam Narrative: GENERAL: Patient is alert, awake and oriented x3. [] NECK: No jugular vein distension. [] HEENT: No cyanosis. No icterus. No pallor. [] HEART: Regular S1 and S2. No murmur, rub or gallop. [] LUNGS: Diminished air entry CENTRAL NERVOUS SYSTEM: Grossly nonfocal. [] EXTREMITIES: Lower extremities with 2+ edema bilaterally Data 12/15/22 04:17 12/16/22 04:09 A&P Assessment and plan (1) Exertional shortness of breath: (2) CHF exacerbation: HFpEF and RV failure Continue Lasix to 60 mg 2 times daily. Continue Metolazone. Continue monitoring renal function -will plan for left and right heart cath once diursed and able to lay flat for the procedure (3) Chronic respiratory failure: Chronic hypercapnic respiratory failure-secondary to COPD/obesity hypoventila tion syndrome (4) CAD (coronary artery disease): h/o Multivessel CAD Qualifiers: Coronary Disease-Associated Artery/Lesion type: [place] artery [place] vs. transplanted heart: [place] heart Associated angina: without angina Qualified Code(s): I25.10 - Atherosclerotic heart disease of [place] coronary artery without angina pectoris (5) HTN (hypertension): Qualifiers: Hypertension type: essential hypertension Qualified Code(s): I10 - Essential (primary) hypertension (6) Dyslipidemia: (7) MANUELITO (obstructive sleep apnea): (8) PVC (premature ventricular contraction): (9) Smoker: Plan Morbid obesity COPD PHTN likely WHO group 2 and 3: will plan for RHC once diuresed Metabolic alkalosis Attestations Medical Necessity Statement*: Care expected to cross 2 midnights. Coding Level of Care Code Acute Code for Chg Fwd Diagnoses Exertional shortness of breath R06.02 CHF exacerbation I50.9 Chronic respiratory failure J96.10 CAD (coronary artery disease) I25.10 Coronary Disease-Associated Artery/Lesion type: [place] artery [place] vs. transplanted heart: [place] heart Associated angina: without angina HTN (hypertension) I10 Hypertension type: essential hypertension Dyslipidemia E78.5 MANUELITO (obstructive sleep apnea) G47.33 PVC (premature ventricular contraction) I49.3 Smoker F17.200
[2022-12-16] MEDS: enoxaparin 40 mg/0.4 mL Syringe SUBCUT (12:27)
[2022-12-16] MEDS: cyclobenzaprine 10 mg Tablet PO ×2 (14:32→20:38)
[2022-12-16] MEDS: metoprolol tartrate 50 mg Tablet PO (18:27)
[2022-12-17] VITALS (16 sets, daily range): BP systolic 97–144; BP diastolic 61–99; PULSE 69–91; RESP 13–23; TEMP 36.5–37.2; O2SAT 88–95
[2022-12-17 04:17] LABS: Blood Urea Nitrogen 30 mg/dL (8-23); Calcium 9.1 mg/dL (8.5-10.5); Chloride 88 mmol/L (98-107); Glomerular Filtration Rate 61.3 mL/min (90-130); Glucose 103 mg/dL (65-115); Osmolality Calculated 290 mOsm/kg (285-295); Sodium 137 mmol/L (136-145)
[2022-12-17 04:19] LABS: Anion Gap 7.1 (5-19); Potassium 3.1 mmol/L (3.5-5.1)
[2022-12-17 04:20] LABS: Carbon Dioxide 45 mmol/L (22-29)
[2022-12-17] MEDS: isosorbide mononitrate ER 30 mg Tablet PO (05:47)
[2022-12-17] MEDS: ipratropium-albuterol 3 mL Neb INHALATION ×4 (08:40→19:43)
[2022-12-17] MEDS: budesonide 0.5 mg/2 mL Neb INHALATION ×2 (08:40→19:43)
[2022-12-17] MEDS: aspirin 81 mg EC Tablet PO (09:16)
[2022-12-17] MEDS: montelukast sodium 10 mg Tablet PO (09:16)
[2022-12-17] MEDS: buPROPion XL (24 HR) 300 mg Tablet PO (09:16)
[2022-12-17] MEDS: acetaZOLAMIDE 250 mg Tablet PO (09:16)
[2022-12-17] MEDS: allopurinol 300 mg Tablet PO ×2 (09:17→18:29)
[2022-12-17] MEDS: metoprolol tartrate 50 mg Tablet 75 MG PO (09:17)
[2022-12-17] MEDS: lisinopril 10 mg Tablet PO (09:17)
[2022-12-17] MEDS: oxyCODONE 5 mg IR Tab/Cap 15 MG PO ×2 (09:18→19:49)
[2022-12-17] MEDS: pantoprazole DR 40 mg Tablet PO (09:18)
[2022-12-17] MEDS: clopidogrel 75 mg Tablet PO (09:18)
[2022-12-17] MEDS: magnesium lactate 84 mg Tablet PO ×2 (09:18→18:28)
[2022-12-17] MEDS: potassium chloride ER 20 mEq Tablet 40 MEQ PO ×2 (09:18→18:29)
[2022-12-17] MEDS: enoxaparin 40 mg/0.4 mL Syringe SUBCUT (13:21)
[2022-12-17] MEDS: cyclobenzaprine 10 mg Tablet PO ×2 (14:42→20:53)
[2022-12-17] MEDS: metoprolol tartrate 50 mg Tablet PO (18:29)
[2022-12-17 18:55] LABS: Blood Urea Nitrogen 25 mg/dL (8-23); Calcium 8.7 mg/dL (8.5-10.5); Carbon Dioxide 38 mmol/L (22-29); Chloride 89 mmol/L (98-107); Glomerular Filtration Rate 67.8 mL/min (90-130); Glucose 104 mg/dL (65-115); Osmolality Calculated 283 mOsm/kg (285-295); Sodium 134 mmol/L (136-145)
[2022-12-17 19:02] LABS: Anion Gap 9.6 (5-19); Potassium 2.6 mmol/L (3.5-5.1)
[2022-12-17] MEDS: lidocaine 1% 5 ML in potassium chloride premix 100 ML 26.25 ML IV (19:50)
[2022-12-17] MEDS: FUROsemide 10 mg/mL SDV 10mL 60 MG IVP (21:10)
--- NOTE | 2022-12-17 23:05 | PM.PN ---
Subjective Subjective: Patient is feeling well. Still short of breath on and off. Has diuresed well. We will he has contraction alkalosis. Vitals/I&O/Wt Last Vital Signs Temp 98.8 F 12/17/22 20:00 Pulse 78 12/17/22 22:00 Resp 23 H 12/17/22 20:00 BP 143/87 12/17/22 20:00 Pulse Ox 91 12/17/22 20:00 O2 Del Method Nasal Cannula 12/17/22 20:00 O2 Flow Rate 3 12/17/22 19:47 FiO2 35 12/17/22 20:00 12/17/22 12/17/22 12/18/22 14:59 22:59 06:59 Intake Total 480 / 480 480 / 960 Output Total 450 / 450 1320 / 1770 500 / 2270 Balance -840 / -810 -500 / -1310 Weight last 48 hrs Weight 357 lb Weight 348 lb 8 oz Physical Exam Narrative: GENERAL: Patient is alert, awake and oriented x3. [] NECK: No jugular vein distension. [] HEENT: No cyanosis. No icterus. No pallor. [] HEART: Regular S1 and S2. No murmur, rub or gallop. [] LUNGS: Diminished air entry CENTRAL NERVOUS SYSTEM: Grossly nonfocal. [] EXTREMITIES: Lower extremities with 2+ edema bilaterally Data 12/15/22 04:17 12/17/22 18:24 A&P Assessment and plan (1) Exertional shortness of breath: (2) CHF exacerbation: HFpEF and RV failure Given contraction alkalosis we will administer acetazolamide today. Will hold Lasix and metolazone for now. We will repeat labs in the p.m. and if alkalosis improves, will give as needed Lasix at night. Close I&O's. (3) Chronic respiratory failure: Chronic hypercapnic respiratory failure-secondary to COPD/obesity hypoventilation syndrome (4) CAD (coronary artery disease): h/o Multivessel CAD Qualifiers: Coronary Disease-Associated Artery/Lesion type: [place] artery [place] vs. transplanted heart: [place] heart Associated angina: without angina Qualified Code(s): I25.10 - Atherosclerotic heart disease of [place] coronary artery without angina pectoris (5) HTN (hypertension): Qualifiers: Hypertension type: essential hypertension Qualified Code(s): I10 - Essential (primary) hypertension (6) Dyslipidemia: (7) MANUELITO (obstructive sleep apnea): (8) PVC (premature ventricular contraction): (9) Smoker: Plan Morbid obesity COPD PHTN likely WHO group 2 and 3: will plan for RHC once diuresed Metabolic alkalosis Attestations Medical Necessity Statement*: Care expected to cross 2 midnights Coding Level of Care Code Acute Code for Chg Fwd Diagnoses Exertional shortness of breath R06.02 CHF exacerbation I50.9 Chronic respiratory failure J96.10 CAD (coronary artery disease) I25.10 Coronary Disease-Associated Artery/Lesion type: [place] artery [place] vs. transplanted heart: [place] heart Associated angina: without angina HTN (hypertension) I10 Hypertension type: essential hypertension Dyslipidemia E78.5 MANUELITO (obstructive sleep apnea) G47.33 PVC (premature ventricular contraction) I49.3 Smoker F17.200
[2022-12-18] VITALS (19 sets, daily range): BP systolic 108–143; BP diastolic 58–83; PULSE 69–86; RESP 15–22; TEMP 36.8–37.7; O2SAT 88–98; BMI 45.9
[2022-12-18] MEDS: oxyCODONE 5 mg IR Tab/Cap 15 MG PO ×3 (02:36→18:33)
[2022-12-18 05:02] LABS: Anion Gap 11.3 (5-19); Blood Urea Nitrogen 26 mg/dL (8-23); Calcium 8.9 mg/dL (8.5-10.5); Carbon Dioxide 39 mmol/L (22-29); Chloride 92 mmol/L (98-107); Glomerular Filtration Rate 67.8 mL/min (90-130); Glucose 99 mg/dL (65-115); Osmolality Calculated 293 mOsm/kg (285-295); Potassium 3.3 mmol/L (3.5-5.1); Sodium 139 mmol/L (136-145)
[2022-12-18] MEDS: isosorbide mononitrate ER 30 mg Tablet PO (07:07)
[2022-12-18] MEDS: ipratropium-albuterol 3 mL Neb INHALATION ×3 (07:33→20:03)
[2022-12-18] MEDS: budesonide 0.5 mg/2 mL Neb INHALATION ×2 (07:33→20:03)
[2022-12-18] MEDS: acetaZOLAMIDE 250 mg Tablet 500 MG PO (08:52)
[2022-12-18] MEDS: potassium chloride ER 20 mEq Tablet 40 MEQ PO ×2 (08:52→18:06)
[2022-12-18] MEDS: pantoprazole DR 40 mg Tablet PO (08:53)
[2022-12-18] MEDS: magnesium lactate 84 mg Tablet PO ×2 (08:53→18:07)
[2022-12-18] MEDS: aspirin 81 mg EC Tablet PO (08:53)
[2022-12-18] MEDS: allopurinol 300 mg Tablet PO ×2 (08:54→18:07)
[2022-12-18] MEDS: metoprolol tartrate 50 mg Tablet 75 MG PO (08:55)
[2022-12-18] MEDS: buPROPion XL (24 HR) 300 mg Tablet PO (08:56)
[2022-12-18] MEDS: clopidogrel 75 mg Tablet PO (08:56)
[2022-12-18] MEDS: lisinopril 10 mg Tablet PO (08:56)
[2022-12-18] MEDS: montelukast sodium 10 mg Tablet PO (08:57)
[2022-12-18] MEDS: acetaZOLAMIDE 250 mg Tablet PO (08:57)
[2022-12-18] MEDS: cyclobenzaprine 10 mg Tablet PO ×2 (09:08→18:06)
--- NOTE | 2022-12-18 10:08 | PM.PN ---
Subjective Subjective: Patient is diureing. Now on diamox and lasix once daily. Vitals/I&O/Wt Last Vital Signs Temp 98.3 F 12/18/22 09:44 Pulse 86 12/18/22 09:44 Resp 22 H 12/18/22 09:44 BP 121/71 12/18/22 09:44 Pulse Ox 89 L 12/18/22 09:44 O2 Del Method Room Air 12/18/22 07:35 O2 Flow Rate 3 12/17/22 19:47 FiO2 40 12/18/22 00:00 12/17/22 12/18/22 12/18/22 22:59 06:59 14:59 Intake Total 480 / 960 200 / 1160 105 / 105 Output Total 1320 / 1770 500 / 2270 440 / 440 Balance -840 / -810 -300 / -1110 -335 / -335 Weight last 48 hrs Weight 300 lb 14.4 oz Weight 357 lb Physical Exam Narrative: GENERAL: Patient is alert, awake and oriented x3. [] NECK: No jugular vein distension. [] HEENT: No cyanosis. No icterus. No pallor. [] HEART: Regular S1 and S2. No murmur, rub or gallop. [] LUNGS: Diminished air entry CENTRAL NERVOUS SYSTEM: Grossly nonfocal. [] EXTREMITIES: Lower extremities with 2+ edema bilaterally Data 12/15/22 04:17 12/18/22 03:28 A&P Assessment and plan (1) Exertional shortness of breath: (2) CHF exacerbation: HFpEF and RV failure Diuresing well. We will continue acetazolamide and lasix. Close I and Os. Tentative plan for coronary angiogram and right heart cath tomorrow AM. NPO past mid night (3) Chronic respiratory failure: Chronic hypercapnic respiratory failure-secondary to COPD/obesity hypoventilation syndrome (4) CAD (coronary artery disease): h/o Multivessel CAD Qualifiers: Coronary Disease-Associated Artery/Lesion type: [place] artery [place] vs. transplanted heart: [place] heart Associated angina: without angina Qualified Code(s): I25.10 - Atherosclerotic heart disease of [place] coronary artery without angina pectoris (5) HTN (hypertension): Qualifiers: Hypertension type: essential hypertension Qualified Code(s): I10 - Essential (primary) hypertension (6) Dyslipidemia: (7) MANUELITO (obstructive sleep apnea): (8) PVC (premature ventricular contraction): (9) Smoker: Plan Morbid obesity COPD PHTN likely WHO group 2 and 3: will plan for RHC once diuresed Metabolic alkalosis Attestations Medical Necessity Statement*: Care expected to cross 2 midnights. Coding Level of Care Code Acute Code for Chg Fwd Diagnoses Exertional shortness of breath R06.02 CHF exacerbation I50.9 Chronic respiratory failure J96.10 CAD (coronary artery disease) I25.10 Coronary Disease-Associated Artery/Lesion type: [place] artery [place] vs. transplanted heart: [place] heart Associated angina: without angina HTN (hypertension) I10 Hypertension type: essential hypertension Dyslipidemia E78.5 MANUELITO (obstructive sleep apnea) G47.33 PVC (premature ventricular contraction) I49.3 Smoker F17.200
[2022-12-18] MEDS: enoxaparin 40 mg/0.4 mL Syringe SUBCUT (13:02)
[2022-12-18] MEDS: FUROsemide 10 mg/mL SDV 10mL 60 MG IVP (13:02)
[2022-12-18] MEDS: metoprolol tartrate 50 mg Tablet PO (18:06)
[2022-12-19] VITALS (16 sets, daily range): BP systolic 102–129; BP diastolic 62–82; PULSE 71–86; RESP 16–24; TEMP 37–38.1; O2SAT 90–99; BMI 45.9
[2022-12-19] MEDS: oxyCODONE 5 mg IR Tab/Cap 15 MG PO ×3 (00:46→18:09)
[2022-12-19] MEDS: isosorbide mononitrate ER 30 mg Tablet PO (06:20)
[2022-12-19 07:10] LABS: Anion Gap 11.2 (5-19); Blood Urea Nitrogen 22 mg/dL (8-23); Calcium 8.5 mg/dL (8.5-10.5); Carbon Dioxide 35 mmol/L (22-29); Chloride 95 mmol/L (98-107); Glomerular Filtration Rate 85.5 mL/min (90-130); Glucose 99 mg/dL (65-115); Osmolality Calculated 289 mOsm/kg (285-295); Potassium 3.2 mmol/L (3.5-5.1); Sodium 138 mmol/L (136-145)
--- NOTE | 2022-12-19 07:47 | PM.PN ---
Subjective Subjective: Patient is febrile. Diuresing well. Found to be COVID positive Vitals/I&O/Wt Last Vital Signs Temp 100 F H 12/18/22 23:33 Pulse 78 12/19/22 06:00 Resp 16 12/19/22 06:26 BP 129/79 12/19/22 04:30 Pulse Ox 92 12/19/22 06:26 O2 Del Method Oxymask 12/18/22 23:33 O2 Flow Rate 4 12/18/22 23:33 FiO2 40 12/18/22 20:07 12/18/22 12/19/22 12/19/22 22:59 06:59 14:59 Intake Total 240 / 345 Output Total 1330 / 2190 360 / 2550 Balance -1090 / -1845 -360 / -2205 Weight last 48 hrs Weight 302 lb 3 oz Weight 300 lb 14.4 oz Weight 357 lb Physical Exam Narrative: GENERAL: Patient is alert, awake and oriented x3. [] NECK: No jugular vein distension. [] HEENT: No cyanosis. No icterus. No pallor. [] HEART: Regular S1 and S2. No murmur, rub or gallop. [] LUNGS: Diminished air entry CENTRAL NERVOUS SYSTEM: Grossly nonfocal. [] EXTREMITIES: Lower extremities with 2+ edema bilaterally Data 12/20/22 04:24 12/20/22 04:24 A&P Assessment and plan (1) Exertional shortness of breath: (2) CHF exacerbation: HFpEF and RV failure Diuresing well. We will continue acetazolamide and lasix. Close I and Os. With covid infection, we may defer the cardiac catheterization for now. May pursue as outpatient. (3) Chronic respiratory failure: Chronic hypercapnic respiratory failure-secondary to COPD/obesity hypoventilation syndrome (4) CAD (coronary artery disease): h/o Multivessel CAD Qualifiers: Coronary Disease-Associated Artery/Lesion type: [place] artery [place] vs. transplanted heart: [place] heart Associated angina: without angina Qualified Code(s): I25.10 - Atherosclerotic heart disease of [place] coronary artery without angina pectoris (5) HTN (hypertension): Qualifiers: Hypertension type: essential hypertension Qualified Code(s): I10 - Essential (primary) hypertension (6) Dyslipidemia: (7) [place]UEL[place] (obstructive sleep apnea): (8) PVC (premature ventricular contraction): (9) Smoker: (10) COVID: Patient was febrile. Hospitalist team consulted. Patient evaluated by Dr Maguire. Found to have COVID PCR positive. On appropriate therapy per medicine team. Appreciate recs. Plan Patient has been found to be COVID positive.Will hold off on invasive procedure during current hospitalization. Can pursue as outpatient. Attestations Medical Necessity Statement*: Care expected to cross 2 midnights. Coding Level of Care Code Acute Code for Chg Fwd Diagnoses Exertional shortness of breath R06.02 CHF exacerbation I50.9 Chronic respiratory failure J96.10 CAD (coronary artery disease) I25.10 Coronary Disease-Associated Artery/Lesion type: [place] artery [place] vs. transplanted heart: [place] heart Associated angina: without angina HTN (hypertension) I10 Hypertension type: essential hypertension Dyslipidemia E78.5 MANUEL[place]O (obstructive sleep apnea) G47.33 PVC (premature ventricular contraction) I49.3 Smoker F17.200 COVID U07.1
[2022-12-19] MEDS: budesonide 0.5 mg/2 mL Neb INHALATION ×2 (08:06→21:01)
[2022-12-19] MEDS: ipratropium-albuterol 3 mL Neb INHALATION ×4 (08:07→21:01)
[2022-12-19] MEDS: pantoprazole DR 40 mg Tablet PO (08:45)
[2022-12-19] MEDS: clopidogrel 75 mg Tablet PO (08:45)
[2022-12-19] MEDS: buPROPion XL (24 HR) 300 mg Tablet PO (08:45)
[2022-12-19] MEDS: magnesium lactate 84 mg Tablet PO ×2 (08:45→17:47)
[2022-12-19] MEDS: allopurinol 300 mg Tablet PO ×2 (08:45→17:49)
[2022-12-19] MEDS: potassium chloride ER 20 mEq Tablet 40 MEQ PO ×2 (08:45→17:48)
[2022-12-19] MEDS: montelukast sodium 10 mg Tablet PO (08:45)
[2022-12-19] MEDS: aspirin 81 mg EC Tablet PO (08:46)
[2022-12-19] MEDS: FUROsemide 10 mg/mL SDV 10mL 60 MG IVP ×2 (08:46→17:48)
[2022-12-19] MEDS: acetaZOLAMIDE 250 mg Tablet PO (08:46)
[2022-12-19] MEDS: lisinopril 10 mg Tablet PO (08:46)
[2022-12-19] MEDS: metoprolol tartrate 50 mg Tablet 75 MG PO (08:48)
--- NOTE | 2022-12-19 10:14 | XRR_ITS ---
PROCEDURE INFORMATION: Exam: XR Chest Exam date and time: 12/19/2022 10:24 AM Age: 62 years old Clinical indication: Fever TECHNIQUE: Imaging protocol: Radiologic exam of the chest. Views: 1 view. COMPARISON: CR XR chest 1V portable [id number] 12/12/2022 9:43 AM FINDINGS: Lungs: Mild, diffuse bilateral pulmonary edema and/or pneumonitis is new. Possible superimposed left basilar atelectasis is new. Pleural spaces: Unremarkable. No pleural effusion. No pneumothorax. Heart/Mediastinum: Unremarkable. No cardiomegaly. Bones/joints: Unremarkable. XR/XR chest 1V portable [id number] IMPRESSION: New mild diffuse bilateral pulmonary edema and/or pneumonitis with new probable superimposed atelectasis left lung base.
--- NOTE | 2022-12-19 10:19 | PM.CONSULT ---
Providers/Reason For Consult Consulting Physician/Specialty*: Brayden Maguire MD Reason for Consult*: Elevated temp Requesting Physician: Dr. Loaiza Attending Physician: Svitlana Casey MD Primary Care Provider: Jose Ramon Salguero NP History of Present Illness History of Present Illness Crow Will is a 62 year old male admitted to the hospital on December 12 secondary to acute diastolic heart failure. He has been diuresed significantly since admission, with approximately 15 L taken off. In the last 24 hours he has had some elevated temperatures, the last 2 being 99.5 and 100.0 respectively. Patient reports he feels okay. He does not really feel any wheezing. He has had some frequent sneezing which he reports are his allergies. He does cough on occasion. His cough has not been productive. He has not felt any fever or chills. He reports no sore throat, or change in his baseline shortness of breath. He has been maintained on 4 L of oxygen, typically uses 2 at home. He denies any significant abdominal pain, diarrhea. He has had a rash on his chest in the last several weeks but no recent travel. Reports some tick bites this summer, [place]. Denies any abscesses, skin changes. Review of Systems General: Reports: 10 or more systems reviewed and unremarkable except in HPI and below Card: Denies: chest pain Resp: Reports: non-productive cough; Denies: dyspnea GI: Denies: abdominal pain, nausea or vomiting Medications/Allergies Home Medications Medication Instructions Recorded Confirmed Last Taken Type allopurinol 300 mg tablet 300 mg PO BID 04/17/19 12/12/22 12/11/22 07:00 History aspirin 81 mg tablet,delayed 81 mg PO DAILY #90 tabs 01/07/20 12/12/22 12/11/22 07:00 Rx release (Adult Low Dose Aspirin) bupropion HCl 300 mg 24 hr tablet, 300 mg PO .1 day 06/09/20 12/12/22 12/11/22 07:00 History extended release (Wellbutrin XL) cyclobenzaprine 10 mg tablet 10 mg PO TID PRN muscle spasm #90 04/09/21 12/12/22 12/11/22 07:00 Rx tabs nicotine (polacrilex) 2 mg gum 2 mg buccal Q2H PRN nicotine 10/06/21 12/12/22 12/11/22 07:00 Rx cravings #50 ea clopidogrel 75 mg tablet 75 mg PO QDAY #90 tabs 02/15/22 12/12/22 12/11/22 07:00 Rx isosorbide mononitrate 30 mg 30 mg PO QAM #90 tabs 02/15/22 12/12/22 12/11/22 07:00 Rx tablet,extended release 24 hr amlodipine 5 mg tablet 5 mg PO DAILY #90 tabs 05/13/22 12/12/22 12/11/22 07:00 Rx albuterol sulfate 90 mcg/actuation 2 inh inhalation Q8H PRN shortness 06/15/22 12/12/22 12/11/22 07:00 Rx aerosol inhaler (Ventolin HFA) of breath or wheezing #8.5 grams montelukast 10 mg tablet 10 mg PO DAILY #90 tabs 09/07/22 12/12/22 12/11/22 07:00 Rx (Singulair) budesonide-formoterol HFA 80 2 puff inhalation BID #10.2 grams 09/12/22 12/12/22 12/11/22 07:00 Rx mcg-4.5 mcg/actuation aerosol inhaler (Symbicort) hydrocodone 5 mg-acetaminophen 325 1 tab PO Q6H PRN pain #20 tabs 09/15/22 12/12/22 12/11/22 07:00 Rx mg tablet albuterol sulfate 2.5 mg/3 mL 2.5 mg (3 mL) inhalation Q6H #180 09/21/22 12/12/22 12/11/22 07:00 Rx (0.083 %) solution for nebulization mL tiotropium bromide 18 mcg capsule 1 cap inhalation DAILY #60 09/21/22 12/12/22 12/11/22 07:00 Rx with inhalation device (Spiriva inhalations with HandiHaler) metolazone 2.5 mg tablet 2.5 mg PO .every other day #30 tabs 10/03/22 12/12/22 12/11/22 07:00 Rx furosemide 40 mg tablet 60 mg PO BID #270 tabs 11/15/22 12/12/22 12/11/22 07:00 Rx lisinopril 10 mg tablet 10 mg PO DAILY #90 tabs 11/15/22 12/12/22 12/11/22 07:00 Rx magnesium oxide 400 mg PO DAILY PRN other 11/15/22 12/12/22 12/11/22 07:00 History metoprolol tartrate 50 mg tablet 50 mg PO DIRECTED 11/15/22 12/12/22 12/11/22 07:00 History nitroglycerin 0.4 mg sublingual 0.4 mg sublingual Q5M PRN chest 11/15/22 12/12/22 12/11/22 07:00 Rx tablet (Nitrostat) pain #25 tabs diltiazem HCl 120 mg See Rx Instructions .Route 12/06/22 12/12/22 12/11/22 07:00 Rx capsule,extended release 24 hr .COMPLEX #90 caps potassium chloride 20 mEq 20 meq PO BID #180 tabs 12/06/22 12/12/22 12/11/22 07:00 Rx tablet,extended release(part/cryst) (Klor-Con M) Allergies Allergy/AdvReac Type Severity Reaction Status Date / Time propoxyphene Allergy HIVES Verified 12/09/22 12:33 [From Ember-N 100] Current Medications Generic Name Dose Route Start Last Admin Trade Name Freq PRN Reason Stop Dose Admin Acetazolamide 500 mg 12/13/22 08:00 12/18/22 08:52 Acetazolamide 250 Mg Tablet PO 500 mg ONCE ARIE Administration Acetazolamide 250 mg 12/17/22 09:00 12/19/22 08:46 Acetazolamide 250 Mg Tablet PO 250 mg DAILY ARIE Administration Albuterol Sulfate 2.5 mg 12/12/22 17:00 12/15/22 03:27 Albuterol 2.5 Mg/3 Ml Neb INHALATION 2.5 mg Q6H.RESP PRN Administration SOB AND/OR WHEEZING Albuterol/Ipratropium 3 ml 12/12/22 12:00 12/19/22 08:07 Ipratropium-Albuterol 3 Ml Neb INHALATION 3 ml QID.RESPIRATORY ARIE Administration Allopurinol 300 mg 12/12/22 18:00 12/19/22 08:45 Allopurinol 300 Mg Tablet PO 300 mg BID ARIE Administration Amlodipine Besylate 5 mg 12/12/22 09:15 12/12/22 10:08 Amlodipine 5 Mg Tablet PO 5 mg DAILY ARIE Administration Aspirin 81 mg 12/12/22 09:15 12/19/22 08:46 Aspirin 81 Mg Ec Tablet PO 81 mg DAILY ARIE Administration Budesonide 0.5 mg 12/12/22 20:00 12/19/22 08:06 Budesonide 0.5 Mg/2 Ml Neb INHALATION 0.5 mg BID.RESPIRATORY ARIE Administration Bupropion HCl 300 mg 12/13/22 09:00 12/19/22 08:45 Bupropion Xl (24 Hr) 300 Mg Tablet PO 300 mg DAILY ARIE Administration Clopidogrel Bisulfate 75 mg 12/13/22 09:00 12/19/22 08:45 Clopidogrel 75 Mg Tablet PO 75 mg DAILY ARIE Administration Cyclobenzaprine HCl 10 mg 12/12/22 09:05 12/18/22 18:06 Cyclobenzaprine 10 Mg Tablet PO 10 mg TID PRN Administration muscle spasm Enoxaparin Sodium 40 mg 12/12/22 12:15 12/18/22 13:02 Enoxaparin 40 Mg/0.4 Ml Syringe SUBCUT 40 mg Q24H ARIE Administration Furosemide 60 mg 12/15/22 18:00 12/19/22 08:46 Furosemide 10 Mg/Ml Sdv 10ml IVP 60 mg BID ARIE Administration Furosemide 60 mg 12/17/22 20:30 12/17/22 21:10 Furosemide 10 Mg/Ml Sdv 10ml IVP 60 mg ONCE ARIE Administration Isosorbide Mononitrate 30 mg 12/13/22 06:00 12/19/22 06:20 Isosorbide Mononitrate Er 30 Mg Tablet PO 30 mg QAM ARIE Administration Lisinopril 10 mg 12/12/22 09:15 12/19/22 08:46 Lisinopril 10 Mg Tablet PO 10 mg DAILY ARIE Administration Magnesium Lactate 84 mg 12/12/22 18:00 12/19/22 08:45 Magnesium Lactate 84 Mg Tablet PO 84 mg BID ARIE Administration Metolazone 2.5 mg 12/14/22 11:20 12/16/22 08:15 Metolazone 5 Mg Tablet PO 2.5 mg DAILY ARIE Administration Metoprolol Tartrate 50 mg 12/12/22 18:00 12/18/22 18:06 Metoprolol Tartrate 50 Mg Tablet PO 50 mg QPM ARIE Administration Metoprolol Tartrate 75 mg 12/13/22 09:00 12/19/22 08:48 Metoprolol Tartrate 50 Mg Tablet PO 75 mg DAILY ARIE Administration Montelukast Sodium 10 mg 12/12/22 09:15 12/19/22 08:45 Montelukast Sodium 10 Mg Tablet PO 10 mg DAILY ARIE Administration Oxycodone HCl 15 mg 12/17/22 18:39 12/19/22 06:26 Oxycodone 5 Mg Ir Tab/Cap PO 15 mg Q6H PRN Administration MODERATE PAIN Pantoprazole Sodium 40 mg 12/13/22 09:00 12/19/22 08:[address] 40 Mg Tablet PO 40 mg DAILY ARIE Administration Potassium Chloride 40 meq 12/13/22 09:00 12/19/22 08:45 Potassium Chloride Er 20 Meq Tablet PO 40 meq BID ARIE Administration PFSH Acute PFSH: Medical History CAD (coronary artery disease) Cervical disc disorder with myelopathy of mid-cervical region Diastolic CHF Dyslipidemia Encounter for long-term opiate analgesic use HTN (hypertension) Long-term use of high-risk medication PVC (premature ventricular contraction) Smoker Spondylolisthesis Surgical History Hx of decompression of ulnar nerve RIGHT Previous back surgery LOWER BACK PLUS YEARS AGO S/P carpal tunnel release RIGHT S/P cholecystectomy Family History Other Lupus Rheumatoid arthritis Social History Smoking and tobacco status: current every day smoker cigarettes Packs smoked per day: 2 Years cigarettes smoked: 48 [ Other cigarette details: Started at age 13] Alcohol intake: never Substance/Drug Use: never Vitals/I&O/Wt Last Vital Signs Temp 100 F H 12/18/22 23:33 Pulse 78 12/19/22 08:17 Resp 18 12/19/22 08:08 BP 129/82 12/19/22 07:47 Pulse Ox 90 12/19/22 08:08 O2 Del Method Room Air, Oxymask 12/19/22 08:08 O2 Flow Rate 4 12/19/22 08:08 FiO2 40 12/18/22 20:07 12/18/22 12/19/22 12/19/22 22:59 06:59 14:59 Intake Total 240 / 345 120 / 120 Output Total 1330 / 2190 360 / 2550 Balance -1090 / -1845 -360 / -2205 120 / 120 Weight last 48 hrs Weight 137.07 kg Weight 136.486 kg Physical Exam Narrative: General exam is a white male, no distress, wearing 4 L of oxygen per facemask. HEENT: Atraumatic and normocephalic. Oropharynx is clear without erythema or exudate. Neck is supple no lymphadenopathy or thyromegaly Cardiovascular regular rate and rhythm, heart sounds distant Lungs a few bibasilar wheezes, mainly expiratory, without crackles Abdomen is soft obese nontender with positive bowel sounds Extremities no cyanosis clubbing. 2+ edema. Venous stasis changes are noted. Skin acneform rash noted over chest. No evidence of abscess Neuro no obvious focal deficits Data 12/15/22 04:17 12/19/22 05:43 Other Labs: I have ordered a CBC, blood culture, liver function test, chest x-ray, urinalysis, and respiratory panel Last chest x-ray reviewed, no evidence of infiltrate. Cardiomegaly noted. Last EKG reviewed demonstrate sinus rhythm, right axis deviation, right bundle branch block A&P Assessment and plan (1) Elevated temperature: At this point etiology is not certain. This could be the start of an infectious process, and he has not yet become febrile. He is requiring 4 L of oxygen which is not typical and does have a cough. Other etiologies could be atelectasis. At this point we will obtain urinalysis, blood culture, chest x-ray, CBC, liver panel. We will obtain a respiratory panel which will include COVID, influenza. Depending upon the above results, will determine further treatment. Will go ahead and start incentive spirometry Continue to monitor temperature trend No empiric antibiotics at this time, will await testing Plan Acute diastolic heart failure, currently being diuresed, with plans for right and left heart cath in the future. Multiple other medical problems as outlined in past medical history Thank you for this consultation, we will continue to follow with recommendations Consult Attestations Medical Necessity Statement: As per primary Diagnoses Elevated temperature R50.9 Time Spent (min) 40
[2022-12-19 11:06] LABS: Basophils # 0.1 10^3/uL (0.0-0.1); Basophils % 0.9 %; Eosinophils # 0.2 10^3/uL (0.0-0.8); Eosinophils % 2.4 %; Hematocrit 52.5 % (37-53); Lymphocytes # 1.6 10^3/uL (0.8-4.8); Lymphocytes % 17.9 %; Mean Corpuscular HGB Conc 34.3 g/dL (30-55); Mean Corpuscular Hemoglobin 33.9 pg (27-33); Mean Corpuscular Volume 98.9 fl (82-101); Mean Platelet Volume 10.3 fL (7.4-10.4); Monocytes # 0.4 10^3/uL (0.2-0.9); Monocytes % 4.9 %; Neutrophils % 73.6 %; Nucleated Red Blood Cells % 0 %; Platelet Count 210 10^3/cmm (157-399); Red Blood Count 5.31 10^6/uL (3.85-5.65); Red Cell Distribution Width 16.3 % (12.1-15.1); White Blood Count 8.83 10^3/uL (3.29-11.43)
[2022-12-19 11:27] LABS: Alanine Aminotransferase 31 U/L (0-41); Albumin Level 3.9 g/dL (3.5-5.2); Alkaline Phosphatase 75 U/L (40-130); Aspartate Amino Transferase 27 U/L (0-40); Globulin 3.7 g/dL (1.3-4.6); Total Bilirubin 1.1 mg/dL (0.15-1.2); Total Protein 7.6 g/dL (6.6-8.7)
[2022-12-19 11:39] LABS: Add Urine Culture? No; Bilirubin Urine Neg (Negative); Blood Urine Neg (Negative); Glucose Urine UA Norm (Normal); Hyaline Casts Urine RARE /lpf; Ketones Urine Negative (Negative); Leukocyte Esterase Urine Negative (Negative); Mucus Urine TRACE /hpf; Nitrate Urine Negative (Negative); Protein Urine Neg (Negative); RBC Urine RARE /hpf (0-2); Specific Gravity, Urine 1.005 (1.005-1.030); Squamous Epithelial Cell Urine RARE /hpf (0-5); Urine Appearance Clear (CLEAR); Urine Color Yellow (Yellow); Urobilinogen Urine Norm (Negative); WBC Urine RARE /hpf (0-5); pH Urine 7 (5-7)
[2022-12-19 12:46] LABS: Adenovirus Not Detected (NOT DETECT); Chlamydia Pneumoniae Not Detected (NOT DETECT); Coronavirus 229E,HKU1,NL63,OC4 Not Detected (NOT DETECT); Human Metapneumovirus Not Detected (NOT DETECT); Human Rhinovirus/Enterovirus Not Detected (NOT DETECT); Influenza A Not Detected (NOT DETECT); Influenza A H1 Not Detected (NOT DETECT); Influenza A H1-2009 Not Detected (NOT DETECT); Influenza A H3 Not Detected (NOT DETECT); Influenza B Not Detected (NOT DETECT); Mycoplasma Pneumoniae Not Detected (NOT DETECT); Parainfluenza Virus Type 1 Not Detected (NOT DETECT); Parainfluenza Virus Type 2 Not Detected (NOT DETECT); Parainfluenza Virus Type 3 Not Detected (NOT DETECT); Parainfluenza Virus Type 4 Not Detected (NOT DETECT); Respiratory Syncytial Virus A Not Detected (NOT DETECT); Respiratory Syncytial Virus B Not Detected (NOT DETECT)
[2022-12-19 13:08] LABS: SARS-COV-2 Detected (NOT DETECT)
[2022-12-19] MEDS: cefTRIAXone 1,000 MG in sodium chloride 0.9% (plus) 50 ML 100 MG IV (14:07)
[2022-12-19] MEDS: dexamethasone 10 mg/mL INJ 6 MG IVP (14:07)
[2022-12-19] MEDS: enoxaparin 40 mg/0.4 mL Syringe SUBCUT (14:08)
[2022-12-19] MEDS: azithromycin 500 MG in sodium chloride 0.9% 250 ML 250 MG IV (14:08)
[2022-12-19] MEDS: remdesivir 200 MG in sodium chloride 0.9% (100 ml) 60 ML 100 MG IV (16:09)
[2022-12-19] MEDS: metoprolol tartrate 50 mg Tablet PO (17:47)
[2022-12-19] MEDS: cyclobenzaprine 10 mg Tablet PO (18:10)
[2022-12-20] VITALS (19 sets, daily range): BP systolic 91–123; BP diastolic 52–75; PULSE 55–80; RESP 16–26; TEMP 36.6–37.1; O2SAT 83–95
[2022-12-20] MEDS: oxyCODONE 5 mg IR Tab/Cap 15 MG PO ×4 (00:10→21:13)
[2022-12-20] MEDS: cyclobenzaprine 10 mg Tablet PO ×4 (00:12→21:19)
[2022-12-20 04:50] LABS: Basophils % 0.4 %; Hematocrit 48.3 % (37-53); Lymphocytes % 11.8 %; Mean Corpuscular HGB Conc 34.4 g/dL (30-55); Mean Corpuscular Hemoglobin 33.6 pg (27-33); Mean Corpuscular Volume 97.8 fl (82-101); Mean Platelet Volume 10.5 fL (7.4-10.4); Monocytes # 0.3 10^3/uL (0.2-0.9); Monocytes % 3.7 %; Neutrophils # 6.86 10^3/uL (1.8-7.7); Neutrophils % 83.6 %; Nucleated Red Blood Cells % 0 %; Platelet Count 198 10^3/cmm (157-399); Red Blood Count 4.94 10^6/uL (3.85-5.65); Red Cell Distribution Width 15.5 % (12.1-15.1)
[2022-12-20 05:15] LABS: Alanine Aminotransferase 29 U/L (0-41); Albumin Level 3.6 g/dL (3.5-5.2); Alkaline Phosphatase 65 U/L (40-130); Anion Gap 13.4 (5-19); Aspartate Amino Transferase 24 U/L (0-40); Blood Urea Nitrogen 25 mg/dL (8-23); Calcium 8.6 mg/dL (8.5-10.5); Carbon Dioxide 34 mmol/L (22-29); Chloride 95 mmol/L (98-107); Globulin 3.3 g/dL (1.3-4.6); Glomerular Filtration Rate 75.7 mL/min (90-130); Glucose 152 mg/dL (65-115); Osmolality Calculated 295 mOsm/kg (285-295); Potassium 3.4 mmol/L (3.5-5.1); Sodium 139 mmol/L (136-145); Total Bilirubin 0.5 mg/dL (0.15-1.2); Total Protein 6.9 g/dL (6.6-8.7)
[2022-12-20] MEDS: isosorbide mononitrate ER 30 mg Tablet PO (05:44)
--- NOTE | 2022-12-20 06:31 | PM.PN ---
Subjective Subjective: Patient is diuresing well. On covid therapy per medicine team Vitals/I&O/Wt Last Vital Signs Temp 97.9 F 12/20/22 05:56 Pulse 80 12/20/22 05:55 Resp 18 12/20/22 04:31 BP 123/75 12/20/22 04:31 Pulse Ox 83 L 12/20/22 00:47 O2 Del Method Nasal Cannula 12/19/22 20:15 O2 Flow Rate 3 12/19/22 20:15 FiO2 4 12/19/22 20:00 12/19/22 12/19/22 12/20/22 14:59 22:59 06:59 Intake Total 290 / 290 350 / 640 Output Total 1100 / 1100 790 / 1890 410 / 2300 Balance -810 / -810 -440 / -1250 -410 / -1660 Weight last 48 hrs Weight 302 lb 3 oz Weight 302 lb 3 oz Physical Exam Narrative: GENERAL: Patient is alert, awake and oriented x3. [] NECK: No jugular vein distension. [] HEENT: No cyanosis. No icterus. No pallor. [] HEART: Regular S1 and S2. No murmur, rub or gallop. [] LUNGS: Diminished air entry CENTRAL NERVOUS SYSTEM: Grossly nonfocal. [] EXTREMITIES: Lower extremities with 2+ edema bilaterally Data 12/20/22 04:24 12/20/22 04:24 Micro: Microbiology 12/19/22 10:51 Blood Culture - Preliminary Blood SPECIMEN COLLECTED 12/19/22 10:56 Blood Culture - Preliminary Blood SPECIMEN COLLECTED A&P Assessment and plan (1) Exertional shortness of breath: (2) CHF exacerbation: HFpEF and RV failure Diuresing well. We will continue acetazolamide and lasix. Close I and Os. We will likely defer heart cath secondary to covid infection. May schedule as outpatient (3) Chronic respiratory failure: Chronic hypercapnic respiratory failure-secondary to COPD/obesity hypoventilation syndrome (4) CAD (coronary artery disease): h/o Multivessel CAD Qualifiers: Coronary Disease-Associated Artery/Lesion type: [place] artery [place] vs. transplanted heart: [place] heart Associated angina: without angina Qualified Code(s): I25.10 - Atherosclerotic heart disease of [place] coronary artery without angina pectoris (5) HTN (hypertension): Qualifiers: Hypertension type: essential hypertension Qualified Code(s): I10 - Essential (primary) hypertension (6) Dyslipidemia: (7) MANUELITO (obstructive sleep apnea): (8) PVC (premature ventricular contraction): (9) Smoker: (10) COVID: On appropriate therapy per medicine team. Appreciate recs. Plan Patient has been found to be COVID positive.Will hold off on invasive procedure during current hospitalization. Can pursue as outpatient. Attestations Medical Necessity Statement*: Care expected to cross 2 midnights. Coding Level of Care Code Acute Code for Chg Fwd Diagnoses Exertional shortness of breath R06.02 CHF exacerbation I50.9 Chronic respiratory failure J96.10 CAD (coronary artery disease) I25.10 Coronary Disease-Associated Artery/Lesion type: [place] artery [place] vs. transplanted heart: [place] heart Associated angina: without angina HTN (hypertension) I10 Hypertension type: essential hypertension Dyslipidemia E78.5 MANUELITO (obstructive sleep apnea) G47.33 PVC (premature ventricular contraction) I49.3 Smoker F17.200 COVID U07.1
[2022-12-20] MEDS: ipratropium-albuterol 3 mL Neb INHALATION ×4 (08:15→20:15)
[2022-12-20] MEDS: budesonide 0.5 mg/2 mL Neb INHALATION ×2 (08:15→20:15)
--- NOTE | 2022-12-20 08:18 | PM.PN ---
Subjective Subjective: Crow reports he is doing okay. No fever since yesterday morning. Still coughing some. Still wheezing. States he does not feel any worse. I have spoken with his counseling department chair, and his heart catheterization is going to be deferred until after he recovers from COVID, likely as an outpatient. Medications: Reviewed: Yes Vitals/I&O/Wt Last Vital Signs Temp 97.9 F 12/20/22 05:56 Pulse 80 12/20/22 05:55 Resp 20 H 12/20/22 07:06 BP 123/75 12/20/22 04:31 Pulse Ox 89 L 12/20/22 07:06 O2 Del Method Nasal Cannula 12/19/22 20:15 O2 Flow Rate 3 12/19/22 20:15 FiO2 4 12/19/22 20:00 12/19/22 12/20/22 12/20/22 22:59 06:59 14:59 Intake Total 350 / 640 Output Total 790 / 1890 410 / 2300 Balance -440 / -1250 -410 / -1660 Weight last 48 hrs Weight 137.07 kg Weight 137.07 kg Physical Exam Narrative: General exam is a white male, no distress, currently on BiPAP. Continue diuresis is noted. Neck is supple no lymphadenopathy or thyromegaly Cardiovascular regular rate and rhythm, heart sounds distant Lungs a few bibasilar wheezes, mainly expiratory, without crackles Abdomen is soft obese nontender with positive bowel sounds Extremities no cyanosis clubbing. 2+ edema. Venous stasis changes are noted. Data 12/20/22 04:24 12/20/22 04:24 Micro: Microbiology 12/19/22 10:51 Blood Culture - Preliminary Blood SPECIMEN COLLECTED 12/19/22 10:56 Blood Culture - Preliminary Blood SPECIMEN COLLECTED A&P Assessment and plan (1) COVID: I was consulted for elevated temperature. The patient has been found to have COVID. He is currently on Rocephin and Zithromax empirically secondary to fever and pulmonic infiltrate. Remdesivir and dexamethasone have been started. Continue pulmonary toilet Continue incentive spirometry, Acapella Increase activity If he shows significant improvement with getting back to his baseline oxygen amount treatment can be truncated. CBC, CMP, CRP in the morning Plan Acute diastolic heart failure, currently being diuresed, with plans for right and left heart cath in the future. Creatinine is stable Multiple other medical problems as outlined in past medical history Thank you for this consultation, we will continue to follow with recommendations Attestations Medical Necessity Statement*: Needs continued hospitalization for treatment of COVID-19 pneumonia requiring more than baseline oxygen amount. Diagnoses COVID U07.1 Time Spent (min) 23
--- NOTE | 2022-12-20 09:26 | PC.CHAP ---
Pastoral Care Encounter/Spiritual Assessment Type of Contact [] Declined financial services auditor visit [] Patient/Family/Request visit [] Outpatient visit [] Follow-up visit [] Physician referral [] Code/Alert [] Routine visit [] Staff referral [] Actively dying [] Patient sleeping [] Family support [] [] Out of room [] Palliative care [] [] Receiving care in room [] Pre-surgical visit [] Trauma [] Long length of stay [] ICU visit [x] Other: Contact precautions, no visit Relational/Emotional Strength [] Patient feels connected with others/family/visitors/staff [] Distress [] Loneliness/isolation [] Abandonment Spirituality of Patient [] Person of Renae [] Attends Yazidi of their Renae [] Believes in Prayer [] Reads Bible or Spiritism materials [] There are Spiritual issues to be addressed Parts Counter Associate Interventions [] Prayer [] Active listening [] Non-anxious presence [] Spiritual/emotional support [] Crisis/trauma care [] Spiritual counseling [] Bereavement support [] Provided bereavement packet [] Provided Bible/devotional materials [] Provided toy/stuffed animal, coloring book to patient or family member [] Provided Communion [] Anointing/[place] [] Salvation [] Completed spiritual assessment [] Other: Impact on Illness or Injury [] Angry [] Fearful [] Anxious [] Often cries [] Exhaustion [] Unable to work [] Unable to attend scientologist [] Unable to walk/stand [] Unable to read [] Unable to drive [] Unable to eat/drink [] Unable to sleep [] Unable to be with family [] Patient intubated [] Other: Summary Time spent with patient
[2022-12-20] MEDS: buPROPion XL (24 HR) 300 mg Tablet PO (09:43)
[2022-12-20] MEDS: aspirin 81 mg EC Tablet PO (09:43)
[2022-12-20] MEDS: acetaZOLAMIDE 250 mg Tablet PO (09:44)
[2022-12-20] MEDS: FUROsemide 10 mg/mL SDV 10mL 60 MG IVP ×2 (09:44→17:48)
[2022-12-20] MEDS: pantoprazole DR 40 mg Tablet PO (09:44)
[2022-12-20] MEDS: magnesium lactate 84 mg Tablet PO ×2 (09:44→17:48)
[2022-12-20] MEDS: potassium chloride ER 20 mEq Tablet 40 MEQ PO ×2 (09:44→17:48)
[2022-12-20] MEDS: allopurinol 300 mg Tablet PO ×2 (09:44→17:48)
[2022-12-20] MEDS: metoprolol tartrate 50 mg Tablet 75 MG PO (09:45)
[2022-12-20] MEDS: lisinopril 10 mg Tablet PO (09:45)
[2022-12-20] MEDS: clopidogrel 75 mg Tablet PO (09:45)
[2022-12-20] MEDS: montelukast sodium 10 mg Tablet PO (09:45)
[2022-12-20] MEDS: enoxaparin 40 mg/0.4 mL Syringe SUBCUT (12:46)
[2022-12-20] MEDS: cefTRIAXone 1,000 MG in sodium chloride 0.9% (plus) 50 ML 100 MG IV (12:46)
[2022-12-20] MEDS: azithromycin 500 MG in sodium chloride 0.9% 250 ML 250 MG IV (12:47)
[2022-12-20] MEDS: dexamethasone 10 mg/mL INJ 6 MG IVP (13:54)
[2022-12-20] MEDS: remdesivir 100 MG in sodium chloride 0.9% (100 ml) 80 ML IV (15:55)
[2022-12-20] MEDS: metoprolol tartrate 50 mg Tablet PO (17:48)
[2022-12-21] VITALS (17 sets, daily range): BP systolic 106–138; BP diastolic 51–90; PULSE 66–127; RESP 13–22; TEMP 36.2–37; O2SAT 89–96; BMI 45.9
[2022-12-21 05:44] LABS: Alanine Aminotransferase 30 U/L (0-41); Albumin Level 3.9 g/dL (3.5-5.2); Alkaline Phosphatase 62 U/L (40-130); Anion Gap 14.7 (5-19); Aspartate Amino Transferase 22 U/L (0-40); Blood Urea Nitrogen 34 mg/dL (8-23); C Reactive Protein 27.1 mg/L (0.0-4.9); Calcium 8.8 mg/dL (8.5-10.5); Carbon Dioxide 35 mmol/L (22-29); Chloride 97 mmol/L (98-107); Globulin 2.5 g/dL (1.3-4.6); Glomerular Filtration Rate 67.8 mL/min (90-130); Glucose 116 mg/dL (65-115); Osmolality Calculated 305 mOsm/kg (285-295); Potassium 3.7 mmol/L (3.5-5.1); Sodium 143 mmol/L (136-145); Total Bilirubin 0.3 mg/dL (0.15-1.2); Total Protein 6.4 g/dL (6.6-8.7)
[2022-12-21] MEDS: isosorbide mononitrate ER 30 mg Tablet PO (07:11)
[2022-12-21 07:22] LABS: Basophils % 0.3 %; Eosinophils % 0.3 %; Hematocrit 45.5 % (37-53); Lymphocytes # 1.4 10^3/uL (0.8-4.8); Lymphocytes % 22.8 %; Mean Corpuscular HGB Conc 34.5 g/dL (30-55); Mean Corpuscular Hemoglobin 33.5 pg (27-33); Mean Platelet Volume 10.7 fL (7.4-10.4); Monocytes # 0.9 10^3/uL (0.2-0.9); Monocytes % 15.9 %; Neutrophils # 3.56 10^3/uL (1.8-7.7); Neutrophils % 60.2 %; Nucleated Red Blood Cells % 0 %; Platelet Count 198 10^3/cmm (157-399); Red Blood Count 4.69 10^6/uL (3.85-5.65); Red Cell Distribution Width 15.7 % (12.1-15.1); White Blood Count 5.92 10^3/uL (3.29-11.43)
[2022-12-21] MEDS: budesonide 0.5 mg/2 mL Neb INHALATION ×2 (07:32→20:42)
[2022-12-21] MEDS: ipratropium-albuterol 3 mL Neb INHALATION ×4 (07:32→20:42)
--- NOTE | 2022-12-21 08:38 | P.PN_ITS ---
Subjective Subjective: Patient is feeling better. On treatment for covid per medicine treatment. Vitals/I&O/Wt Last Vital Signs Temp 97.2 F L 12/21/22 07:57 Pulse 72 12/21/22 07:57 Resp 13 12/21/22 07:57 BP 106/51 12/21/22 07:57 Pulse Ox 96 12/21/22 07:57 O2 Del Method Nasal Cannula 12/21/22 07:57 O2 Flow Rate 3 12/21/22 07:33 FiO2 45 12/21/22 07:45 12/20/22 12/21/22 12/21/22 22:59 06:59 14:59 Intake Total 350 / 518 Output Total 700 / 1772 350 / 2122 Balance -350 / -1254 -350 / -1604 Weight last 48 hrs Weight 302 lb 3 oz Physical Exam Narrative: GENERAL: Patient is alert, awake and oriented x3. [] NECK: No jugular vein distension. [] HEENT: No cyanosis. No icterus. No pallor. [] HEART: Regular S1 and S2. No murmur, rub or gallop. [] LUNGS: Diminished air entry CENTRAL NERVOUS SYSTEM: Grossly nonfocal. [] EXTREMITIES: Lower extremities with 2+ edema bilaterally Data 12/21/22 07:13 12/21/22 04:42 Micro: Microbiology 12/20/22 00:15 Gram Stain - Final Sputum - Expectorated Sputum 12/19/22 10:51 Blood Culture - Preliminary Blood NEGATIVE TO DATE 12/19/22 10:56 Blood Culture - Preliminary Blood NEGATIVE TO DATE 12/19/22 10:45 Urine Culture - Preliminary Urine,Clean Catch A&P Assessment and plan (1) Exertional shortness of breath: (2) CHF exacerbation: HFpEF and RV failure Patient has diurese well and is in about 19 liters negative balance. We will hold lasix for today. Continue acetazolamide. Close I and Os We will likely defer heart cath secondary to covid infection. May schedule as outpatient (3) Chronic respiratory failure: Chronic hypercapnic respiratory failure-secondary to COPD/obesity hypoventilation syndrome (4) CAD (coronary artery disease): h/o Multivessel CAD Qualifiers: Coronary Disease-Associated Artery/Lesion type: [place] artery [place] vs. transplanted heart: [place] heart Associated angina: without angina Qualified Code(s): I25.10 - Atherosclerotic heart disease of [place] coronary artery without angina pectoris (5) HTN (hypertension): Qualifiers: Hypertension type: essential hypertension Qualified Code(s): I10 - Essential (primary) hypertension (6) Dyslipidemia: (7) [place]UEL[place]O (obstructive sleep apnea): (8) PVC (premature ventricular contraction): (9) Smoker: (10) COVID: On appropriate therapy per medicine team. Appreciate recs. Plan Patient has been found to be COVID positive.Will hold off on invasive procedure during current hospitalization. Can pursue as outpatient. Possible discharge home tomorrow Attestations Medical Necessity Statement*: Care expected to cross 2 midnights. Coding Level of Care Code Acute Code for Chg Fwd Diagnoses Exertional shortness of breath R06.02 CHF exacerbation I50.9 Chronic respiratory failure J96.10 CAD (coronary artery disease) I25.10 Coronary Disease-Associated Artery/Lesion type: [place] artery [place] vs. transplanted heart: [place] heart Associated angina: without angina HTN (hypertension) I10 Hypertension type: essential hypertension Dyslipidemia E78.5 MANUEL[place]O (obstructive sleep apnea) G47.33 PVC (premature ventricular contraction) I49.3 Smoker F17.200 COVID U07.1
[2022-12-21] MEDS: potassium chloride ER 20 mEq Tablet 40 MEQ PO ×2 (08:53→18:43)
[2022-12-21] MEDS: allopurinol 300 mg Tablet PO ×2 (08:55→18:43)
[2022-12-21] MEDS: pantoprazole DR 40 mg Tablet PO (08:55)
[2022-12-21] MEDS: lisinopril 10 mg Tablet PO (08:55)
[2022-12-21] MEDS: clopidogrel 75 mg Tablet PO (08:55)
[2022-12-21] MEDS: metoprolol tartrate 50 mg Tablet 75 MG PO (08:55)
[2022-12-21] MEDS: aspirin 81 mg EC Tablet PO (08:56)
[2022-12-21] MEDS: montelukast sodium 10 mg Tablet PO (08:56)
[2022-12-21] MEDS: acetaZOLAMIDE 250 mg Tablet PO (08:56)
[2022-12-21] MEDS: buPROPion XL (24 HR) 300 mg Tablet PO (08:56)
[2022-12-21] MEDS: magnesium lactate 84 mg Tablet PO ×2 (08:56→18:43)
[2022-12-21] MEDS: oxyCODONE 5 mg IR Tab/Cap 15 MG PO ×2 (09:18→20:08)
--- NOTE | 2022-12-21 09:38 | PM.PN ---
Subjective Subjective: Crow reports he is feeling a little bit better. Still coughing some mucus out. Not too short of breath on the oxygen. Wondering if he is going to have support with a noninvasive ventilator when he discharges. Apparently a noninvasive ventilator was ordered by Dr. Freeman months ago. Medications: Reviewed: Yes Vitals/I&O/Wt Last Vital Signs Temp 97.2 F L 12/21/22 07:57 Pulse 72 12/21/22 07:57 Resp 19 H 12/21/22 09:18 BP 106/51 12/21/22 07:57 Pulse Ox 96 12/21/22 07:57 O2 Del Method Nasal Cannula 12/21/22 07:57 O2 Flow Rate 3 12/21/22 07:33 FiO2 45 12/21/22 07:45 12/20/22 12/21/22 12/21/22 22:59 06:59 14:59 Intake Total 350 / 518 Output Total 700 / 1772 350 / 2122 Balance -350 / -1254 -350 / -1604 Weight last 48 hrs Weight 137.07 kg Physical Exam Narrative: General exam is a white male, no distress, currently on 3 L per nasal cannula Neck is supple no lymphadenopathy or thyromegaly Cardiovascular regular rate and rhythm, heart sounds distant Lungs a few bibasilar wheezes Abdomen is soft obese nontender with positive bowel sounds Extremities no cyanosis clubbing. 1+ edema. Venous stasis changes are noted. Data 12/21/22 07:13 12/21/22 04:42 Micro: Microbiology 12/19/22 10:45 Urine Culture - Final Urine,Clean Catch 12/20/22 00:15 Gram Stain - Final Sputum - Expectorated Sputum 12/19/22 10:51 Blood Culture - Preliminary Blood NEGATIVE TO DATE 12/19/22 10:56 Blood Culture - Preliminary Blood NEGATIVE TO DATE A&P Assessment and plan (1) COVID: I was consulted for elevated temperature. The patient has been found to have COVID. He is currently on Rocephin and Zithromax empirically secondary to fever and pulmonic infiltrate. Remdesivir and dexamethasone have been started. Continue pulmonary toilet Continue incentive spirometry, Acapella Increase activity If he shows significant improvement with getting back to his baseline oxygen amount treatment can be truncated. CBC, CMP, CRP in the morning Overall slowly appears to be improving. No change in treatment today. Likely discharge tomorrow. Plan Acute diastolic heart failure, currently being diuresed, with plans for right and left heart cath in the future. Creatinine is stable. Cardiology will decide regarding further diuresis. Chronic respiratory failure with history of hypercarbia, on chronic oxygen. He would benefit greatly from noninvasive ventilation, which could improve his respiratory status greatly and may improve his chronic diastolic heart failure. Multiple other medical problems as outlined in past medical history Thank you for this consultation, we will continue to follow with recommendations Attestations Medical Necessity Statement*: As per primary Coding Level of Care Code Acute Code for Chg Fwd Diagnoses COVID U07.1
[2022-12-21] MEDS: cefTRIAXone 1,000 MG in sodium chloride 0.9% (plus) 50 ML 100 MG IV (12:05)
[2022-12-21] MEDS: enoxaparin 40 mg/0.4 mL Syringe SUBCUT (12:06)
[2022-12-21] MEDS: dexamethasone 10 mg/mL INJ 6 MG IVP (13:56)
[2022-12-21] MEDS: azithromycin 500 MG in sodium chloride 0.9% 250 ML 250 MG IV (13:56)
[2022-12-21] MEDS: remdesivir 100 MG in sodium chloride 0.9% (100 ml) 80 ML IV (16:19)
[2022-12-21] MEDS: metoprolol tartrate 50 mg Tablet PO (18:43)
[2022-12-22] VITALS (13 sets, daily range): BP systolic 111–134; BP diastolic 67–75; PULSE 63–85; RESP 15–19; TEMP 37–37.2; O2SAT 89–98; BMI 46.8
[2022-12-22 04:13] LABS: Basophils % 0.3 %; Eosinophils % 0.3 %; Hematocrit 47.4 % (37-53); Lymphocytes # 1.2 10^3/uL (0.8-4.8); Mean Corpuscular HGB Conc 34.8 g/dL (30-55); Mean Corpuscular Hemoglobin 33.8 pg (27-33); Mean Corpuscular Volume 97.1 fl (82-101); Monocytes # 0.6 10^3/uL (0.2-0.9); Monocytes % 17.7 %; Neutrophils # 1.31 10^3/uL (1.8-7.7); Neutrophils % 42.4 %; Nucleated Red Blood Cells % 0 %; Platelet Count 218 10^3/cmm (157-399); Red Blood Count 4.88 10^6/uL (3.85-5.65); Red Cell Distribution Width 15.6 % (12.1-15.1)
[2022-12-22 04:36] LABS: Anion Gap 13.5 (5-19); Blood Urea Nitrogen 31 mg/dL (8-23); Calcium 8.7 mg/dL (8.5-10.5); Carbon Dioxide 32 mmol/L (22-29); Chloride 99 mmol/L (98-107); Creatinine Clr Calc Pharmacy 116.7342; Glomerular Filtration Rate 85.5 mL/min (90-130); Glucose 113 mg/dL (65-115); Magnesium 2.3 mg/dL (1.7-2.3); Osmolality Calculated 299 mOsm/kg (285-295); Potassium 3.5 mmol/L (3.5-5.1); Sodium 141 mmol/L (136-145)
[2022-12-22] MEDS: isosorbide mononitrate ER 30 mg Tablet PO (06:35)
[2022-12-22] MEDS: ipratropium-albuterol 3 mL Neb INHALATION ×3 (07:58→15:46)
[2022-12-22] MEDS: budesonide 0.5 mg/2 mL Neb INHALATION (07:58)
--- NOTE | 2022-12-22 08:00 | P.PN_ITS ---
Subjective Subjective: Crow reports he is feeling okay. No specific concerns today. Not short of breath. Occasional cough. Medications: Reviewed: Yes Vitals/I&O/Wt Last Vital Signs Temp 98.6 F 12/22/22 04:33 Pulse 76 12/22/22 07:59 Resp 16 12/22/22 07:59 BP 129/75 12/22/22 04:33 Pulse Ox 98 12/22/22 07:59 O2 Del Method Nasal Cannula 12/22/22 07:59 O2 Flow Rate 2 12/22/22 07:59 FiO2 45 12/21/22 20:00 12/21/22 12/22/22 12/22/22 22:59 06:59 14:59 Intake Total 1330 / 1620 240 / 1860 Output Total 900 / 900 Balance 430 / 720 240 / 960 Weight last 48 hrs Weight 139.848 kg Weight 137.07 kg Physical Exam Narrative: General exam is a white male, no distress, currently on 2 L per nasal cannula Neck is supple no lymphadenopathy or thyromegaly Cardiovascular regular rate and rhythm, heart sounds distant Lungs a few bibasilar wheezes Abdomen is soft obese nontender with positive bowel sounds Extremities no cyanosis clubbing. 1+ edema. Venous stasis changes are noted. Data 12/22/22 03:45 12/22/22 03:45 Micro: Microbiology 12/20/22 00:15 Gram Stain - Final Sputum - Expectorated Sputum Sputum Culture - Preliminary 12/19/22 10:45 Urine Culture - Final Urine,Clean Catch A&P Assessment and plan (1) COVID: I was consulted for elevated temperature. The patient has been found to have COVID. He is currently on Rocephin and Zithromax empirically secondary to fever and pulmonic infiltrate. Remdesivir and dexamethasone have been started and continued for COVID Continue pulmonary toilet Continue incentive spirometry, Acapella Increase activity It appears he is back to his baseline oxygen requirement. His treatment with dexamethasone and remdesivir can be truncated should he be appropriate for discharge home from a cardiology standpoint. His sputum demonstrated heavy gram-positive cocci in pairs on Gram stain. We will discharge him on 5 days of cefdinir. Plan Acute diastolic heart failure, currently being diuresed, with plans for right and left heart cath in the future. Creatinine is stable. Chronic respiratory failure with history of hypercarbia, on chronic oxygen. He would benefit greatly from noninvasive ventilation, which could improve his respiratory status greatly and may improve his chronic diastolic heart failure. Discharge planning is following up on this possibility. The original order for is from his network developer. Multiple other medical problems as outlined in past medical history Thank you for this consultation, we will continue to follow with recommendations Attestations Medical Necessity Statement*: As per primary Coding Level of Care Code 34294 Moderate MDM includes number and complexity of problems actively addressed during encounter and amount and/or complexity of data reviewed/ordered as docume nted Diagnoses COVID U07.1 Time Spent (min) 21
[2022-12-22] MEDS: aspirin 81 mg EC Tablet PO (08:45)
[2022-12-22] MEDS: magnesium lactate 84 mg Tablet PO (08:46)
[2022-12-22] MEDS: oxyCODONE 5 mg IR Tab/Cap 15 MG PO (08:46)
[2022-12-22] MEDS: lisinopril 10 mg Tablet PO (08:47)
[2022-12-22] MEDS: acetaZOLAMIDE 250 mg Tablet PO (08:47)
[2022-12-22] MEDS: potassium chloride ER 20 mEq Tablet 40 MEQ PO (08:47)
[2022-12-22] MEDS: montelukast sodium 10 mg Tablet PO (08:47)
[2022-12-22] MEDS: pantoprazole DR 40 mg Tablet PO (08:47)
[2022-12-22] MEDS: allopurinol 300 mg Tablet PO (08:47)
[2022-12-22] MEDS: clopidogrel 75 mg Tablet PO (08:47)
[2022-12-22] MEDS: buPROPion XL (24 HR) 300 mg Tablet PO (08:47)
[2022-12-22] MEDS: metoprolol tartrate 50 mg Tablet 75 MG PO (08:48)
--- NOTE | 2022-12-22 09:19 | PM.DCS ---
Discharge Providers Date of Admission: 12/12/22 09:11 Date of Discharge: December 22, 2022 Attending Provider at Admission: Svitlana Casey MD Attending Provider at Discharge: Svitlana Casey MD Primary Care Provider: Jose Ramon Salguero NP Diagnoses at Discharge Discharge Diagnosis (1) COVID: Status: Acute (2) MANUELITO (obstructive sleep apnea): Status: Acute (3) Chronic respiratory failure: Status: Acute (4) Diastolic CHF: Status: Acute Qualifiers: Heart failure chronicity: chronic Qualified Code(s): I50.32 - Chronic diastolic (congestive) heart failure (5) CAD (coronary artery disease): Status: Acute Qualifiers: Coronary Disease-Associated Artery/Lesion type: [place] artery [place] vs. transplanted heart: [place] heart Associated angina: without angina Qualified Code(s): I25.10 - Atherosclerotic heart disease of [place] coronary artery without angina pectoris (6) HTN (hypertension): Status: Acute Qualifiers: Hypertension type: essential hypertension Qualified Code(s): I10 - Essential (primary) hypertension (7) PVC (premature ventricular contraction): Status: Acute (8) Dyslipidemia: Status: Acute Reason for Visit Reason for Visit: R06.02 Brief History: ?62 year old male?with PMHx of hypertension, chronic active smoker 2-3 PPD for 45 years, CAD, h/o NSTEMI in 08/2017 s/p ANNA to mLAD, D2 and LCX, COPD/emphysema, severe MANUELITO/OHS, morbid obesity (BMI>43), chronic respiratory failure, lung nodules,? and RBBB. He also has frequent PVC's? and PSVC. Patient was initially brought for right and left heart cath however had significant dyspnea on exertion and Orthopnea. Hospital Course Hospital Course He was admitted for diuresis. He diuresed over 18 L during hospitalization. He was found to have COVID. COVID-positive. Medicine team was consulted and appropriate therapy was given inpatient. Patient's volume status improved significantly. He was discharged in a stable condition. Right and left heart cath will be performed as outpatient because of COVID infection. Physical Exam Narrative: GENERAL: Patient is alert, awake and oriented x3. [] NECK: No jugular vein distension. [] HEENT: No cyanosis. No icterus. No pallor. [] HEART: Regular S1 and S2. No murmur, rub or gallop. [] LUNGS: Diminished air entry CENTRAL NERVOUS SYSTEM: Grossly nonfocal. [] EXTREMITIES: Lower extremities with 2+ edema bilaterally Discharge Data Studies Completed and Pending Completed Studies During Hospitalization Category Date Time Status CXRP [XR chest 1V portable [id number]] Routine Exams 12/12/22 09:30 Completed XR chest 1V portable [id number] Routine Exams 12/19/22 10:14 Completed Pending at discharge Category Date Time Status Blood Culture Stat Lab 12/19/22 10:51 Results Sputum Culture and Gram Stain Routine Lab 12/20/22 00:15 Results Radiology Impressions Chest X-Ray 12/19/22 10:14 IMPRESSION: New mild diffuse bilateral pulmonary edema and/or pneumonitis with new probable superimposed atelectasis left lung base. Laboratory Results WBC 3.10 10^3/uL (3.29-11.43) L 12/22/22 03:45 Corrected WBC Cancelled 12/21/22 04:42 RBC 4.88 10^6/uL (3.85-5.65) 12/22/22 03:45 Hgb 16.50 g/dL (11.27-16.99) 12/22/22 03:45 Hct 47.4 % (37-53) 12/22/22 03:45 MCV 97.1 fl (82-101) 12/22/22 03:45 MCH 33.8 pg (27-33) H 12/22/22 03:45 MCHC 34.8 g/dL (30-55) 12/22/22 03:45 RDW 15.6 % (12.1-15.1) H 12/22/22 03:45 Plt Count 218 10^3/cmm (157-399) 12/22/22 03:45 MPV 11.0 fL (7.4-10.4) H 12/22/22 03:45 Gran % Cancelled 12/21/22 04:42 Neut % (Auto) 42.4 % 12/22/22 03:45 Lymph % (Auto) 39.0 % 12/22/22 03:45 [place] % (Auto) 17.7 % 12/22/22 03:45 Eos % (Auto) 0.3 % 12/22/22 03:45 Baso % (Auto) 0.3 % 12/22/22 03:45 Neut # (Auto) 1.31 10^3/uL (1.8-7.7) L 12/22/22 03:45 Lymph # (Auto) 1.2 10^3/uL (0.8-4.8) 12/22/22 03:45 [place] # (Auto) 0.6 10^3/uL (0.2-0.9) 12/22/22 03:45 Eos # (Auto) 0.0 10^3/uL (0.0-0.8) 12/22/22 03:45 Baso # (Auto) 0.0 10^3/uL (0.0-0.1) 12/22/22 03:45 Absolute Gran (auto) Cancelled 12/21/22 04:42 Nucleated RBC % (auto) 0 % 12/22/22 03:45 Nucleated RBCs # 0.0 /100WBC 12/22/22 03:45 Sodium 141 mmol/L (136-145) 12/22/22 03:45 Potassium 3.5 mmol/L (3.5-5.1) 12/22/22 03:45 Chloride 99 mmol/L (98-107) 12/22/22 03:45 Carbon Dioxide 32 mmol/L (22-29) H 12/22/22 03:45 Anion Gap 13.5 (5-19) 12/22/22 03:45 BUN 31 mg/dL (8-23) H 12/22/22 03:45 Creatinine 0.9 mg/dL (0.7-1.2) 12/22/22 03:45 GFR Calculation 85.5 mL/min (90-130) L 12/22/22 03:45 Glucose 113 mg/dL (65-115) 12/22/22 03:45 Calculated Osmolality 299 mOsm/kg (285-295) H 12/22/22 03:45 Calcium 8.7 mg/dL (8.5-10.5) 12/22/22 03:45 Magnesium 2.3 mg/dL (1.7-2.3) 12/22/22 03:45 Total Bilirubin 0.3 mg/dL (0.15-1.2) 12/21/22 04:42 Direct Bilirubin 0.30 mg/dL (0.00-0.30) 12/19/22 10:51 AST 22 U/L (0-40) 12/21/22 04:42 ALT 30 U/L (0-41) 12/21/22 04:42 Alkaline Phosphatase 62 U/L (40-130) 12/21/22 04:42 C-Reactive Protein 27.1 mg/L (0.0-4.9) H 12/21/22 04:42 NT-Pro-B Natriuret Pep 2121 pg/mL (0-125) H 12/12/22 07:30 Total Protein 6.4 g/dL (6.6-8.7) L 12/21/22 04:42 Albumin 3.9 g/dL (3.5-5.2) 12/21/22 04:42 Globulin 2.5 g/dL (1.3-4.6) 12/21/22 04:42 Urine Color Yellow (Yellow) 12/19/22 10:45 Urine Appearance Clear (CLEAR) 12/19/22 10:45 Urine pH 7 (5-7) 12/19/22 10:45 Ur Specific [place] 1.005 (1.005-1.030) 12/19/22 10:45 Urine Protein Neg (Negative) 12/19/22 10:45 Urine Glucose (UA) Norm (Normal) 12/19/22 10:45 Urine Ketones Negative (Negative) 12/19/22 10:45 Urine Blood Neg (Negative) 12/19/22 10:45 Urine Nitrate Negative (Negative) 12/19/22 10:45 Urine Bilirubin Neg (Negative) 12/19/22 10:45 Urine Urobilinogen Norm mg/dL (Negative) 12/19/22 10:45 Ur Leukocyte Esterase Negative (Negative) 12/19/22 10:45 Urine RBC Rare /hpf (0-2) 12/19/22 10:45 Urine WBC Rare /hpf (0-5) 12/19/22 10:45 Ur Squamous Epith Cells Rare /hpf (0-5) 12/19/22 10:45 Amorphous Sediment Not Reportable 12/19/22 10:45 Urine Bacteria None /hpf (NONE) 12/19/22 10:45 Hyaline Casts Rare /lpf 12/19/22 10:45 Urine Mucus Trace /hpf 12/19/22 10:45 Nasal Influ A H1 2008 PCR Not detected (NOT DETECT) 12/19/22 09:38 Adenovirus (PCR) Not detected (NOT DETECT) 12/19/22 09:38 C. pneumoniae DNA (PCR) Not detected (NOT DETECT) 12/19/22 09:38 Coronavirus 229E (PCR) Not detected (NOT DETECT) 12/19/22 09:38 Human Metapneumovir PCR Not detected (NOT DETECT) 12/19/22 09:38 Influenza A (H1) PCR Not detected (NOT DETECT) 12/19/22 09:38 Influenza A (H3) PCR Not detected (NOT DETECT) 12/19/22 09:38 Influenza Type A (PCR) Not detected (NOT DETECT) 12/19/22 09:38 Influenza Type B (PCR) Not detected (NOT DETECT) 12/19/22 09:38 M. pneumoniae (PCR) Not detected (NOT DETECT) 12/19/22 09:38 Parainfluenza 1 (PCR) Not detected (NOT DETECT) 12/19/22 09:38 Parainfluenza 2 (PCR) Not detected (NOT DETECT) 12/19/22 09:38 Parainfluenza 3 (PCR) Not detected (NOT DETECT) 12/19/22 09:38 Parainfluenza 4 (PCR) Not detected (NOT DETECT) 12/19/22 09:38 RSV Type A (PCR) Not detected (NOT DETECT) 12/19/22 09:38 RSV Type B (PCR) Not detected (NOT DETECT) 12/19/22 09:38 Entero/Rhino (PCR) Not detected (NOT DETECT) 12/19/22 09:38 SARS-CoV-2 (PCR) Detected (NOT DETECT) A 12/19/22 09:38 Vitals Last Vital Signs Temp 98.6 F 12/22/22 04:33 Pulse 85 12/22/22 08:24 Resp 18 12/22/22 08:46 BP 129/75 12/22/22 08:24 Pulse Ox 90 12/22/22 08:46 O2 Del Method Nasal Cannula 12/22/22 07:59 O2 Flow Rate 2 12/22/22 07:59 FiO2 45 12/21/22 20:00 Discharge Plan Discharge Patient Disposition: Home Condition: Stable Prescriptions: Continued allopurinol 300 mg tablet 300 mg PO BID bupropion HCl [Wellbutrin XL] 300 mg tablet extended release 24 hr 300 mg PO .1 day cyclobenzaprine 10 mg tablet 10 mg PO TID PRN (Reason: muscle spasm) Qty: 90 1RF aspirin [Adult Low Dose Aspirin] 81 mg tablet,delayed release (DR/EC) 81 mg PO DAILY Qty: 90 2RF nicotine (polacrilex) 2 mg gum 2 mg buccal Q2H PRN (Reason: nicotine cravings) Qty: 50 3RF amlodipine 5 mg tablet 5 mg PO DAILY Qty: 90 3RF metoprolol tartrate 50 mg tablet 50 mg PO DIRECTED Rx Instructions: 75mg in the AM 50 mg PM albuterol sulfate 2.5 mg /3 mL (0.083 %) solution for nebulization 2.5 mg inhalation Q6H Qty: 180 6RF Spiriva with HandiHaler 18 mcg capsule, w/inhalation device 1 cap inhalation DAILY Qty: 60 6RF Rx Instructions: puncture 1 cap using device; one dose = 2 inhalations magnesium oxide 400 mg magnesium tablet 400 mg PO DAILY PRN (Reason: other) nitroglycerin [Nitrostat] 0.4 mg tablet, sublingual 0.4 mg SUBLINGUAL Q5M PRN (Reason: chest pain) Qty: 25 6RF Rx Instructions: Take one tab sublingual for chest pain every 5 mins up to 3 tabs total lisinopril 10 mg tablet 10 mg PO DAILY Qty: 90 3RF furosemide 40 mg tablet 60 mg PO BID Qty: 270 1RF metolazone 2.5 mg tablet 2.5 mg PO .every other day Qty: 30 0RF clopidogrel 75 mg tablet 75 mg PO QDAY Qty: 90 3RF isosorbide mononitrate 30 mg tablet extended release 24 hr 30 mg PO QAM Qty: 90 3RF Ventolin HFA 90 mcg/actuation HFA aerosol inhaler 2 inh inhalation Q8H PRN (Reason: shortness of breath or wheezing) Qty: 8.5 0RF montelukast [Singulair] 10 mg tablet 10 mg PO DAILY Qty: 90 3RF budesonide-formoterol [Symbicort] 80-4.5 mcg/actuation HFA aerosol inhaler 2 puff inhalation BID Qty: 10.2 3RF potassium chloride [Klor-Con M20] 20 mEq tablet,ER particles/crystals 20 meq PO BID Qty: 180 2RF diltiazem HCl 120 mg capsule,extended release 24hr See Rx Instructions .ROUTE .COMPLEX Qty: 90 1RF Dose Instruction: TAKE ONE CAPSULE BY MOUTH DAILY Rx Instructions: TAKE ONE CAPSULE BY MOUTH DAILY hydrocodone-acetaminophen 5-325 mg tablet 1 tab PO Q6H PRN (Reason: pain) Qty: 20 0RF Discharge Orders: Discharge Order (Routine); Ordered 12/22/22 Ordered By: Carlos Alberto Loaiza Other Ambulatory Orders: DME: [facility] (Order) Location: None Selected Ordered By: Svitlana Casey Referrals: Jose Ramon Salguero NP [Primary Care Provider] - 12/29/22 2:30 pm Discharge Diet: Cardiac Discharge Activity: Increase activity as tolerated Patient Instructions: Cefdinir (By mouth) (Omnicef), Heart Failure (DC), CHF Stoplight, Opioid Safety Discharge Attestations Time Spent in Discharge Care*: greater than 30 min Quality Metrics Clinical Quality Measures [ No reported AMI, CVA or VTE this stay] Coding Level of Care Code Acute Code for Chg Fwd Diagnoses COVID U07.1 MANUELITO (obstructive sleep apnea) G47.33 Chronic respiratory failure J96.10 Diastolic CHF I50.32 Heart failure chronicity: chronic CAD (coronary artery disease) I25.10 Coronary Disease-Associated Artery/Lesion type: [place] artery [place] vs. transplanted heart: [place] heart Associated angina: without angina HTN (hypertension) I10 Hypertension type: essential hypertension PVC (premature ventricular contraction) I49.3 Dyslipidemia E78.5
[2022-12-22] MEDS: FUROsemide 10 mg/mL SDV 10mL 60 MG IVP (10:22)
--- NOTE | 2022-12-22 12:00 | PC.NURSE ---
Patient being discharged, awaiting transport. IV has been discontinued per patient request as it was falling out.
--- NOTE | 2022-12-22 16:54 | PC.NURSE ---
Discharge Note Patient discharged to home via POV accompanied by friend. Discharge instructions reviewed with patient and/or passenger representative. Mobile pharmacy medications and/or prescriptions provided. Belongings/home medications returned.
== END 2022-12-22 16:55 | disposition home or self-care (01) | DRG 291 ==
LOC: CSU 09:12
PROVIDERS: Internal Medicine; Admitting Provider Internal Medicine Cardiovascular Disease; PCP Nurse Practitioner Family; Visit Provider Internal Medicine Cardiovascular Disease
DX: I11.0 Hypertensive heart disease with heart failure (principal); I50.33 Acute on chronic diastolic (congestive) heart failure; U07.1 COVID-19; E66.2 Morbid (severe) obesity with alveolar hypoventilation; Z68.42 Body mass index [BMI] 45.0-49.9, adult; J96.12 Chronic respiratory failure with hypercapnia; E87.3 Alkalosis; F17.200 Nicotine dependence, unspecified, uncomplicated; I25.10 Atherosclerotic heart disease of native coronary artery without angina pectoris; Z95.5 Presence of coronary angioplasty implant and graft; I25.2 Old myocardial infarction; J43.9 Emphysema, unspecified; R91.8 Other nonspecific abnormal finding of lung field; I45.10 Unspecified right bundle-branch block; M79.10 Myalgia, unspecified site; E87.6 Hypokalemia; Z79.82 Long term (current) use of aspirin; Z79.02 Long term (current) use of antithrombotics/antiplatelets; Z99.81 Dependence on supplemental oxygen; I49.3 Ventricular premature depolarization; E78.5 Hyperlipidemia, unspecified; F17.210 Nicotine dependence, cigarettes, uncomplicated; Z79.891 Long term (current) use of opiate analgesic; Z79.51 Long term (current) use of inhaled steroids
CPT/HCPCS: 36415; 71045; 80048; 80053; 80076; 81001; 83735; 83880; 85025; 86140; 87040; 87070; 87086; 87205; 87486; 87581; 87633; 93005; 94640; 94660; 96372; 96376; A9270; J0248; J0456; J0696; J1100; J1650; J1940; J3480; J7050; J7613; J7626

== ENCOUNTER 2023-01-11 09:25 | Inpatient (IN) | payer MEDICAID, SELFPAY ==
[2023-01-11] VITALS (22 sets, daily range): BP systolic 105–124; BP diastolic 63–77; PULSE 56–81; RESP 12–22; TEMP 36.7; O2SAT 86–95; BMI 43.3
[2023-01-11 07:30] LABS: Basophils # 0.1 10^3/uL (0.0-0.1); Basophils % 0.7 %; Eosinophils # 0.4 10^3/uL (0.0-0.8); Eosinophils % 3.2 %; Hematocrit 51.1 % (37-53); Lymphocytes # 4.5 10^3/uL (0.8-4.8); Lymphocytes % 37.2 %; Mean Corpuscular HGB Conc 34.2 g/dL (30-55); Mean Corpuscular Volume 99.2 fl (82-101); Mean Platelet Volume 10.1 fL (7.4-10.4); Monocytes # 1.1 10^3/uL (0.2-0.9); Monocytes % 8.8 %; Neutrophils # 6.02 10^3/uL (1.8-7.7); Neutrophils % 49.9 %; Nucleated Red Blood Cells % 0 %; Platelet Count 246 10^3/cmm (157-399); Red Blood Count 5.15 10^6/uL (3.85-5.65); White Blood Count 12.07 10^3/uL (3.29-11.43)
[2023-01-11] MEDS: diphenhydrAMINE 50 mg Capsule PO (07:30)
[2023-01-11 07:40] LABS: Anion Gap 15.4 (5-19); Blood Urea Nitrogen 32 mg/dL (8-23); Calcium 10.2 mg/dL (8.5-10.5); Carbon Dioxide 36 mmol/L (22-29); Chloride 91 mmol/L (98-107); Glomerular Filtration Rate 47.4 mL/min (90-130); Glucose 108 mg/dL (65-115); Osmolality Calculated 295 mOsm/kg (285-295); Potassium 3.4 mmol/L (3.5-5.1); Sodium 139 mmol/L (136-145)
--- NOTE | 2023-01-11 09:05 | P.HP_ITS ---
Providers/Chief Complaint Admitting Physician: Dr. Casey, Cardiology Primary Care Provider: Jose Ramon Salguero NP Chief Complaint: R06.02, I25.10 History of Present Illness Crow Will is a 62 year old male with PMHx of hypertension, chronic active smoker 2-3 PPD for 45 years, CAD, h/o NSTEMI in 08/2017 s/p ANNA to mLAD, D2 and LCX, COPD/emphysema, severe MANUELITO/OHS, morbid obesity (BMI>43), chronic respiratory failure, lung nodules,? and RBBB. He also has frequent PVC's? and PSVC. His statin was stopped because of myalgias and arthralgias after cutting back on dose did not help with his symptoms.? He has been having worsening exertional SOB and was noted to have dilated PA on CTA chest and RV dilation on recent echo. Last stress test was about 1 and 1/2 years ago and did not show any ischemia. He was admitted recently and diuresed and treated for COVID-19. He was brought in for elective LHC and seems like creatinine has increased. Review of Systems Const: Denies: fever(s) or chills Eyes: Denies: change in vision Card: Reports: edema (improved), swelling of feet/ankles and dyspnea on exertion (improved); Denies: chest pain, palpitations, lightheadedness, syncope or orthopnea Resp: Reports: dyspnea (improved); Denies: productive cough or non-productive cough GI: Denies: abdominal pain, nausea or vomiting Musc: Reports: neck pain, back pain and joint pain Neuro: Denies: headache(s) or dizziness Psych: Denies: anxiety or depression Jacob/Lymph: Denies: easy bruising or easy bleeding Medications/Allergies Home Medications Medication Instructions Recorded Confirmed Last Taken Type allopurinol 300 mg tablet 300 mg PO BID 04/17/19 01/11/23 01/10/23 21:00 History aspirin 81 mg tablet,delayed 81 mg PO DAILY #90 tabs 01/07/20 01/10/23 01/11/23 07:25 Rx release (Adult Low Dose Aspirin) bupropion HCl 300 mg 24 hr tablet, 300 mg PO .1 day 06/09/20 01/10/23 01/11/23 07:25 History extended release (Wellbutrin XL) cyclobenzaprine 10 mg tablet 10 mg PO TID PRN muscle spasm #90 04/09/21 01/10/23 12/11/22 07:00 Rx tabs nicotine (polacrilex) 2 mg gum 2 mg buccal Q2H PRN nicotine 10/06/21 01/10/23 12/11/22 07:00 Rx cravings #50 ea clopidogrel 75 mg tablet 75 mg PO QDAY #90 tabs 02/15/22 01/11/23 01/10/23 21:00 Rx isosorbide mononitrate 30 mg 30 mg PO QAM #90 tabs 02/15/22 01/10/23 01/11/23 07:25 Rx tablet,extended release 24 hr amlodipine 5 mg tablet 5 mg PO DAILY #90 tabs 05/13/22 01/10/23 01/11/23 07:25 Rx albuterol sulfate 90 mcg/actuation 2 inh inhalation Q8H PRN shortness 06/15/22 01/10/23 12/11/22 07:00 Rx aerosol inhaler (Ventolin HFA) of breath or wheezing #8.5 grams montelukast 10 mg tablet 10 mg PO DAILY #90 tabs 09/07/22 01/11/23 01/10/23 21:00 Rx (Singulair) hydrocodone 5 mg-acetaminophen 325 1 tab PO Q6H PRN pain #20 tabs 09/15/22 01/10/23 01/10/23 16:00 Rx mg tablet albuterol sulfate 2.5 mg/3 mL 2.5 mg (3 mL) inhalation Q6H #180 09/21/22 01/10/23 12/11/22 07:00 Rx (0.083 %) solution for nebulization mL tiotropium bromide 18 mcg capsule 1 cap inhalation DAILY #60 09/21/22 01/10/23 12/11/22 07:00 Rx with inhalation device (Spiriva inhalations with HandiHaler) metolazone 2.5 mg tablet 2.5 mg PO .every other day #30 tabs 10/03/22 01/10/23 01/11/23 07:25 Rx furosemide 40 mg tablet 60 mg PO BID #270 tabs 11/15/22 01/10/23 01/11/23 07:25 Rx lisinopril 10 mg tablet 10 mg PO DAILY #90 tabs 11/15/22 01/11/23 01/10/23 21:00 Rx magnesium oxide 400 mg PO DAILY PRN other 11/15/22 01/10/23 01/11/23 07:25 History metoprolol tartrate 50 mg tablet 50 mg PO DIRECTED 11/15/22 01/10/23 01/11/23 07:25 History nitroglycerin 0.4 mg sublingual 0.4 mg sublingual Q5M PRN chest 11/15/22 01/10/23 12/11/22 07:00 Rx tablet (Nitrostat) pain #25 tabs diltiazem HCl 120 mg See Rx Instructions .Route 12/06/22 01/10/23 01/11/23 07:25 Rx capsule,extended release 24 hr .COMPLEX #90 caps potassium chloride 20 mEq 20 meq PO BID #180 tabs 12/06/22 01/10/23 01/11/23 07:25 Rx tablet,extended release(part/cryst) (Klor-Con M) budesonide-formoterol HFA 80 2 puff inhalation BID #10.2 grams 01/10/23 01/10/23 Unknown Rx mcg-4.5 mcg/actuation aerosol inhaler (Symbicort) Allergies Allergy/AdvReac Type Severity Reaction Status Date / Time propoxyphene Allergy HIVES Verified 12/09/22 12:33 [From Darvocet-N 100] PFSH Acute PFSH: Medical History CAD (coronary artery disease) Cervical disc disorder with myelopathy of mid-cervical region CHF exacerbation Diastolic CHF Dyslipidemia Encounter for long-term opiate analgesic use HTN (hypertension) Long-term use of high-risk medication PVC (premature ventricular contraction) Smoker Spondylolisthesis Surgical History Hx of decompression of ulnar nerve RIGHT Previous back surgery LOWER BACK PLUS YEARS AGO S/P carpal tunnel release RIGHT S/P cholecystectomy Family History Other Lupus Rheumatoid arthritis Social History Smoking and tobacco/nicotine status: current every day tobacco/nicotine user cigarettes Packs smoked per day: 2 Years cigarettes smoked: 48 [ Other cigarette details: Started at age 13] Alcohol intake: never Substance/Drug Use: never Vitals/I&O/Wt Last Vital Signs Temp 98.0 F 01/11/23 07:30 Pulse 56 L 01/11/23 07:30 Resp 20 H 01/11/23 07:30 BP 124/77 01/11/23 07:30 Pulse Ox 93 01/11/23 07:30 O2 Del Method Nasal Cannula 01/11/23 07:30 O2 Flow Rate 2 01/11/23 07:30 Weight last 48 hrs Weight 285 lb Physical Exam Narrative: GENERAL: obese man sitting propped up in bed in no acute distress HEENT: Extraocular movement intact. No pallor or icterus. NECK: central trachea, No JVD, No carotid bruit. short thick neck CARDIOVASCULAR SYSTEM: S1-S2 regular. No murmur rubs or gallops. RESPIRATORY SYSTEM: Chest clear to auscultation. No wheezes rhonchi or rubs heard. No use of accessory muscles. ABDOMEN: Soft, nontender and nondistended. Normal bowel sounds present. No hepatosplenomegaly appreciated. abdominal wall edema+ EXTREMITIES: No cyanosis or edema (improved) ROLLED GOLD PLATER: Patient is alert oriented ?3. No focal neurological deficits. SKIN: Normal turgor and temperature. PSYCH: Normal insight and judgment. Data 01/11/23 07:07 01/11/23 07:07 A&P Assessment and plan (1) BRIAN (acute kidney injury): Will admit overnight for IV hydration -f/u on BMP and LHC/RHC based on that tomorrow -hold off on lasix and lisinopril (2) Diastolic CHF: HFpEF and RV dysfunction Qualifiers: Heart failure chronicity: chronic Qualified Code(s): I50.32 - Chronic diastolic (congestive) heart failure (3) Chronic respiratory failure: Chronic hypercapnic respiratory failure-secondary to COPD/obesity hypoventilation syndrome (4) CAD (coronary artery disease): h/o Multivessel CAD Qualifiers: Associated angina: without angina Coronary Disease-Associated Artery/Lesion type: [place] artery [place] vs. transplanted heart: [place] heart Qualified Code(s): I25.10 - Atherosclerotic heart disease of [place] coronary artery without angina pectoris (5) HTN (hypertension): Qualifiers: Hypertension type: essential hypertension Qualified Code(s): I10 - Essential (primary) hypertension (6) Dyslipidemia: (7) MANUELITO (obstructive sleep apnea): (8) PVC (premature ventricular contraction): (9) Smoker: Plan Morbid obesity COPD PHTN likely WHO group 2 and 3: will plan for RHC once diuresed Metabolic alkalosis Attestations Medical Necessity Statement*: needs hospital stay for IV hydration for LHC Coding Level of Care Code Acute Code for Chg Fwd Diagnoses BRIAN (acute kidney injury) N17.9 Diastolic CHF I50.32 Heart failure chronicity: chronic Chronic respiratory failure J96.10 CAD (coronary artery disease) I25.10 Associated angina: without angina Coronary Disease-Associated Artery/Lesion type: [place] artery [place] vs. transplanted heart: [place] heart HTN (hypertension) I10 Hypertension type: essential hypertension Dyslipidemia E78.5 MANUELITO (obstructive sleep apnea) G47.33 PVC (premature ventricular contraction) I49.3 Smoker F17.200
--- NOTE | 2023-01-11 09:15 | PC.NURSE ---
Dr. Casey rounded with patient . Dr. Casey Postponed cath today due to creatinine 1.5, admitting for IV hydration and attempt to proceed with cath tomorrow if labs are improved.
--- NOTE | 2023-01-11 09:15 | PC.NURSE ---
Patient transferred to [facility] via wheelchair. Report and plan of care called to NÉSTOR Mclean.
[2023-01-11] MEDS: buPROPion XL (24 HR) 300 mg Tablet PO (10:29)
[2023-01-11] MEDS: montelukast sodium 10 mg Tablet PO (10:29)
[2023-01-11] MEDS: clopidogrel 75 mg Tablet PO (10:29)
[2023-01-11] MEDS: enoxaparin 40 mg/0.4 mL Syringe SUBCUT (10:29)
[2023-01-11] MEDS: sodium chloride 0.9% 1,000 ML 50 ML IV (10:30)
[2023-01-11] MEDS: HYDROcodone-acetaminophen 5-325 mg Tablet 1 TAB PO (13:32)
[2023-01-11] MEDS: ipratropium-albuterol 3 mL Neb INHALATION ×2 (13:50→20:08)
[2023-01-11] MEDS: potassium chloride ER 20 mEq Tablet PO (18:36)
[2023-01-11] MEDS: allopurinol 300 mg Tablet PO (18:37)
[2023-01-11] MEDS: budesonide 0.5 mg/2 mL Neb INHALATION (20:08)
[2023-01-11] MEDS: metoprolol tartrate 50 mg Tablet PO (21:32)
[2023-01-12] VITALS (19 sets, daily range): BP systolic 99–128; BP diastolic 58–79; PULSE 64–87; RESP 12–20; TEMP 36.4–36.6; O2SAT 88–94; BMI 43.4
[2023-01-12] MEDS: ipratropium-albuterol 3 mL Neb INHALATION ×4 (02:23→20:37)
[2023-01-12] MEDS: HYDROcodone-acetaminophen 5-325 mg Tablet 1 TAB PO ×3 (02:44→18:21)
[2023-01-12 04:51] LABS: Anion Gap 12.7 (5-19); Blood Urea Nitrogen 34 mg/dL (8-23); Calcium 9.4 mg/dL (8.5-10.5); Carbon Dioxide 37 mmol/L (22-29); Chloride 94 mmol/L (98-107); Glomerular Filtration Rate 51.4 mL/min (90-130); Glucose 100 mg/dL (65-115); Magnesium 1.9 mg/dL (1.7-2.3); Osmolality Calculated 300 mOsm/kg (285-295); Sodium 141 mmol/L (136-145)
[2023-01-12 04:58] LABS: NT Pro B Type Natriuretic Pept 522 pg/mL (0-125)
[2023-01-12 05:03] LABS: Potassium 2.7 mmol/L (3.5-5.1)
[2023-01-12] MEDS: isosorbide mononitrate ER 30 mg Tablet PO (06:03)
[2023-01-12] MEDS: budesonide 0.5 mg/2 mL Neb INHALATION ×2 (07:27→20:37)
[2023-01-12] MEDS: potassium chloride ER 20 mEq Tablet PO ×2 (09:37→18:18)
[2023-01-12] MEDS: amlodipine 10 mg Tablet PO (09:37)
[2023-01-12] MEDS: clopidogrel 75 mg Tablet PO (09:37)
[2023-01-12] MEDS: buPROPion XL (24 HR) 300 mg Tablet PO (09:37)
[2023-01-12] MEDS: magnesium oxide 400 mg tablet PO (09:37)
[2023-01-12] MEDS: montelukast sodium 10 mg Tablet PO (09:37)
[2023-01-12] MEDS: enoxaparin 40 mg/0.4 mL Syringe SUBCUT (09:37)
[2023-01-12] MEDS: allopurinol 300 mg Tablet PO ×2 (09:37→18:18)
[2023-01-12] MEDS: lidocaine 1% 5 ML in potassium chloride premix 100 ML 26.25 ML IV (09:38)
[2023-01-12] MEDS: sodium chloride 0.9% 1,000 ML 50 ML IV (09:41)
[2023-01-12] MEDS: metoprolol tartrate 50 mg Tablet PO ×2 (09:43→21:13)
[2023-01-12] MEDS: aspirin 325 mg Tablet PO (09:43)
--- NOTE | 2023-01-12 10:08 | PC.CHAP ---
Pastoral Care Encounter/Spiritual Assessment Type of Contact [] Declined tar heater visit [] Patient/Family/Request visit [] Outpatient visit [] Follow-up visit [] Physician referral [] Code/Alert [x] Routine visit [] Staff referral [] Actively dying [] Patient sleeping [] Family support [] [] Out of room [] Palliative care [] [x] Receiving care in room [] Pre-surgical visit [] Trauma [] Long length of stay [] ICU visit [] Other: Relational/Emotional Strength [x] Patient feels connected with others/family/visitors/staff [] Distress [] Loneliness/isolation [] Abandonment Spirituality of Patient [x] Person of Renae [] Attends Quaker of their Renae [x] Believes in Prayer [] Reads Bible or Bahai materials [] There are Spiritual issues to be addressed Vp Scientific Interventions [x] Prayer [x] Active listening [x] Non-anxious presence [x] Spiritual/emotional support [] Crisis/trauma care [x] Spiritual counseling [] Bereavement support [] Provided bereavement packet [] Provided Bible/devotional materials [] Provided toy/stuffed animal, coloring book to patient or family member [] Provided Communion [] Anointing/[place] [] Salvation [x] Completed spiritual assessment [] Other: Impact on Illness or Injury [] Angry [] Fearful [] Anxious [] Often cries [] Exhaustion [] Unable to work [] Unable to attend judaism [] Unable to walk/stand [] Unable to read [] Unable to drive [] Unable to eat/drink [] Unable to sleep [] Unable to be with family [] Patient intubated [] Other: Summary Heart negative feeling about health waiting on doctor to see what needs to be done well go home Time spent with patient 10 mins
--- NOTE | 2023-01-12 15:20 | P.PN_ITS ---
Subjective Subjective: No chest pain. Potassium level at 2.7 today. Creatinine improved slightly. Medications: Reviewed: Yes Vitals/I&O/Wt Last Vital Signs Temp 97.9 F 01/12/23 04:00 Pulse 64 01/12/23 14:01 Resp 18 01/12/23 14:00 BP 104/65 01/12/23 12:00 Pulse Ox 93 01/12/23 14:01 O2 Del Method BiPAP 01/12/23 14:00 O2 Flow Rate 3 01/12/23 07:29 FiO2 40 01/12/23 14:01 01/12/23 01/12/23 01/12/23 06:59 14:59 22:59 Intake Total 1240 / 1240 Output Total 600 / 1150 600 / 600 Balance -600 / -910 640 / 640 Weight last 48 hrs Weight 286 lb 3 oz Weight 285 lb Physical Exam Narrative: GENERAL: obese man sitting propped up in bed in no acute distress HEENT: Extraocular movement intact. No pallor or icterus. NECK: central trachea, No JVD, No carotid bruit. short thick neck CARDIOVASCULAR SYSTEM: S1-S2 regular. No murmur rubs or gallops. RESPIRATORY SYSTEM: Chest clear to auscultation. No wheezes rhonchi or rubs heard. No use of accessory muscles. ABDOMEN: Soft, nontender and nondistended. Normal bowel sounds present. No hepatosplenomegaly appreciated. EXTREMITIES: No cyanosis or edema (, trace) FIRE CHIEF: Patient is alert oriented ?3. No focal neurological deficits. SKIN: Normal turgor and temperature. PSYCH: Normal insight and judgment. Data 01/11/23 07:07 01/12/23 04:12 A&P Assessment and plan (1) BRIAN (acute kidney injury): continue with IV hydration -f/u on BMP and LHC/RHC tomorrow morning -hold off on lasix and lisinopril (2) Diastolic CHF: HFpEF and RV dysfunction Qualifiers: Heart failure chronicity: chronic Qualified Code(s): I50.32 - Chronic diastolic (congestive) heart failure (3) Chronic respiratory failure: Chronic hypercapnic respiratory failure-secondary to COPD/obesity hypoventilation syndrome (4) CAD (coronary artery disease): h/o Multivessel CAD Qualifiers: Coronary Disease-Associated Artery/Lesion type: [place] artery [place] vs. transplanted heart: [place] heart Associated angina: without angina Qualified Code(s): I25.10 - Atherosclerotic heart disease of [place] coronary artery without angina pectoris (5) HTN (hypertension): Qualifiers: Hypertension type: essential hypertension Qualified Code(s): I10 - Essential (primary) hypertension (6) Dyslipidemia: (7) MANUELITO (obstructive sleep apnea): (8) PVC (premature ventricular contraction): (9) Smoker: Plan Morbid obesity COPD PHTN likely WHO group 2 and 3: will plan for RHC once diuresed Metabolic alkalosis Hypokalemia: replaced Attestations Medical Necessity Statement*: needs hospital stay for hydration and electrolyte replacement for LHC Coding Level of Care Code 51861 Diagnoses BRIAN (acute kidney injury) N17.9 Diastolic CHF I50.32 Heart failure chronicity: chronic Chronic respiratory failure J96.10 CAD (coronary artery disease) I25.10 Coronary Disease-Associated Artery/Lesion type: [place] artery [place] vs. transplanted heart: [place] heart Associated angina: without angina HTN (hypertension) I10 Hypertension type: essential hypertension Dyslipidemia E78.5 MANUELITO (obstructive sleep apnea) G47.33 PVC (premature ventricular contraction) I49.3 Smoker F17.200
[2023-01-12 17:58] LABS: Anion Gap 13.7 (5-19); Blood Urea Nitrogen 30 mg/dL (8-23); Calcium 9.3 mg/dL (8.5-10.5); Carbon Dioxide 34 mmol/L (22-29); Chloride 96 mmol/L (98-107); Glomerular Filtration Rate 61.3 mL/min (90-130); Glucose 106 mg/dL (65-115); Magnesium 2.2 mg/dL (1.7-2.3); Osmolality Calculated 297 mOsm/kg (285-295); Potassium 3.7 mmol/L (3.5-5.1); Sodium 140 mmol/L (136-145)
[2023-01-13] VITALS (59 sets, daily range): BP systolic 99–137; BP diastolic 58–101; PULSE 66–88; RESP 7–24; TEMP 36.5–36.7; O2SAT 85–96
[2023-01-13] MEDS: ipratropium-albuterol 3 mL Neb INHALATION ×3 (01:56→19:49)
[2023-01-13] MEDS: isosorbide mononitrate ER 30 mg Tablet PO (06:18)
--- NOTE | 2023-01-13 06:18 | XACV_ITS ---
Exam Room: [facility] Ht: 173 cm Wt: 129 kg BSA: 2.56 m2 Gender: Male : 1960 Any Known Allergies: Other Exam Priority: Routine Procedure(s): Procedure Description: Diagnostic procedure Procedure Description: Right Heart Catheterization Procedure Description: O2 saturation Procedure Description: Coronary Angiography Diagnostic Cath Status: Elective Diagnostic Findings * Crow is a 62 year old male with PMHx of hypertension, chronic active smoker 2-3 PPD for 45 years, CAD, h/o NSTEMI in 08/2017 s/p ANNA to mLAD, D2 and LCX, COPD/emphysema, severe MANUELITO/OHS, morbid obesity (BMI>43), chronic respiratory failure, lung nodules, and RBBB. He also has frequent PVC's and PSVC's. He has been having worsening exertional SOB. He is here for elective left and right heart catheterization. * Normal sized left main artery with no stenosis. * Medium calibre left anterior descending artery that wraps around apex. Mild 20% narrowing just before take off of first septal pbx mechanic. Small diagonal branch with severe diffuse proximal disease. * Medium calibre circumflex artery with 30% narrowing in mid circumflex. Ostial first obtuse marginal with 30% narrowing. * Chronic total occlusion of proximal right coronary artery. Left to right collaterals to rPDA and RPLV. * Coronary angiography shows right dominance. Conclusions 1. Mild disease in LAD and circumflex artery. Severe disease in small diagonal branch not amenable to intervention. ROUTE SPECIALIST of px RCA. 2. Pulmonary artery wedge pressures are elevated at 31 mm Hg. 3. Pulmonary artery pressures are moderately elevated (64/36, 46 mm Hg). Recommendations * Return to inpatient for close monitoring and routine cath care. * Continue current medical management including aggresive diuresis and risk factor modification. Pressures Phase:Rest AO : 110 / 78 ( 93 ) @ 9:03:00 AM 96 / 76 ( 85 ) @ 9:05:00 AM 96 / 74 ( 84 ) @ 9:09:00 AM 108 / 88 ( 98 ) @ 9:20:00 AM RV : 62 / 7 / 18 @ 8:52:00 AM PA : 64 / 36 ( 46 ) @ 8:51:00 AM RA : a wave = 21 v wave = 18 mean = 17 @ 8:54:00 AM PCW : a wave = 33 v wave = 30 mean = 31 @ 8:50:00 AM Hemodynamic Findings Right atrial pressures are elevated at 17 mm Hg. Right ventricular pressures are elevated at 62/7, 18 mm Hg. Pulmonary artery pressures are moderately elevated (64/36, 46 mm Hg). Pulmonary artery wedge pressures are elevated at 31 mm Hg. Cardiac output by Cody method is normal. CO of 6.3 L/min and CI of 2.5 L/min/m2. TPG of 15 mm HG. DPG of 5 mm Hg. PVR <3 [place] Unit. O2 Content Phase:Rest PA : O2 Content O2: 65.9 @ 9:05:00 AM Saturations Phase:Rest AO : 87 @ 9:03:00 AM RA : 66 @ 9:09:00 AM RV : 66 @ 9:20:00 AM PA : 66 @ 9:05:00 AM Cardiac Output Phase:Rest Cody : 6 @ 8:37:50 AM Cody Cardiac Index: 3 @ 8:37:50 AM Flow Phase:Rest Qp : 6 @ 8:37:50 AM Qs : 6 @ 8:37:50 AM Clinical Evaluation EBL: 5mL-10mL Procedural Details Procedure Consent Obtained. Pre-Procedure Time Out. Identified patient by full name and date of as verbalized by the patient/guarantor. Does the consent match the physician's order: Yes. Accurate & Complete Informed Consent: Yes. Inpatient/Outpatient History & Physical on Chart: Yes. If H&P is completed, is and addenduem needed: No; If yes, is the addendum complete: N/A. Visualize and Verify Site with Patient/Guarantor: N/A. Relevant Radiology Images available: Yes. Pre-op teaching completed and patient verbalized understanding. The risks, benefits, and alternatives of sedation and/or procedure were discussed by physician. The patient agrees to continue. Procedure started. [facility] Clinical Fraility Score: 3: Managing Well. Club Lounge Attendant Indications: Other. Chest Pain Symptom Assessment: Atypical Angina. Correct patient, site and procedure confirmed by cath team. PERRLA. Strong, equal hand laborer livestock bilaterally. Lungs clear x 5 lobes. IV Site on Arrival: 18 gauge in the right anticubital. IV Site on Arrival: 18 gauge in the left anticubital. IV Fluids: 0.9% NaCl at KVO. 400 mL infused prior to builder's labourer. Pre Procedural Pulses: right radial was 2+. Oxygen started at 2liters/min via nasal canula. right groin was prepped with chloroprep then draped in the usual sterile fashion. right brachial was prepped with chloroprep then draped in the usual sterile fashion. right groin was prepped with chloroprep then draped in the usual sterile fashion. Physician notified. Baseline sample Acquired. HR: 98 BPM. Physician arrived. Physician scrubbed in. Immediate Pre-Procedure Time Out. Correct Patient: Yes; Correct Procedure: Yes; Correct Site: Yes; Correct Patient Position: Yes; Correct Supplies: Yes; Dried Flammable Prep: Yes; Blood Products Available: N/A;. Lidocaine 1% infiltrated to the right brachial. Sheath wire inserted through the right brachial IV catheter. IV catheter removed OTW. Vallejo-Yaniv MON catheter inserted. Lidocaine 1% infiltrated to the right brachial. Oximetry samples were obtained. Normal venous range: 60-85%. Normal arterial range: 95-100%. Pressure measurements obtained. Vallejo-Yaniv out. Lidocaine 1% infiltrated to the right radial. Arterial access obtained. A 5 danish TIG catheter in over wire. Multiple views taken of left coronary artery. Catheter redirected to the RCA. A view taken of right coronary artery. Catheter removed over the exchange wire. A 5 danish JL4 catheter in over wire. Catheter removed over the exchange wire. A 5 danish Anjel catheter in over wire. Multiple views taken of left coronary artery. Dr. Loaiza called to review pictures. Dr. Loaiza arrived. Catheter removed over the exchange wire. Blood drawn and sent to lab. A Manual Compression was successful obtaining hemostatsis at the Right Brachial Vein insertion site. A TR Band was successful obtaining hemostatsis at the Right Radial artery insertion site. Post Procedure: Pulses reassessed and unchanged. PERRLA. Strong, equal hand laborer livestock bilaterally. No VTE prophylaxis required. Medication's Wasted: Lidocaine 1% = 3 mL. Medication's Wasted: Nitro = 49.6 mcg. Medication's Wasted: Heparin = 1000 units. Medication's Wasted: Other = Fentanyl: 25 mcg. Total IV fluids: 79 mL. Post-op diagnosis: cad. Complications: none. Estimated blood loss: 5mL-10mL. Responsiveness - Normal response to verbal stimuli; alert and oriented, PERRLA. Airway - Unaffected, no intervention required; spontaneous ventilation. Circulation: W/N/L, pulses unchanged. Nausea/Vomiting: No. Procedure completed. Vital chart was stopped. Patient transferred by bed to 1st floor. Access Site Site: Right Brachial Vein Sheath Size: 6 Fr Hemostasis Method: Manual Compression Hemostasis Success: Successful Site: Right Radial artery Sheath Size: 6 Fr Hemostasis Method: TR Band Hemostasis Success: Successful Procedure Medications Start: 7:41 AM Stop: 7:41 AM Medication: Versed Amount: 1 mg Route: I.V. Start: 7:46 AM Stop: 7:46 AM Medication: Fentanyl Amount: 25 mcg Route: I.V. Start: 7:48 AM Stop: 7:48 AM Medication: Versed Amount: 1 mg Route: I.V. Start: 7:58 AM Stop: 7:58 AM Medication: Versed 1 mg and Fentanyl 25 mcg Amount: 1 Route: I.V. Start: 8:00 AM Stop: 8:00 AM Medication: Nitrogylcerin Amount: 200 mcg Route: I.A. Start: 8:14 AM Stop: 8:14 AM Medication: Nitrogylcerin Amount: 200 mcg Route: I.A. Start: 8:19 AM Stop: 8:19 AM Medication: Versed 1 mg and Fentanyl 25 mcg Amount: 1 Route: I.V. I, the attending physician, have reviewed and verified all procedure medications. Yes, all medications given per verbal order History/Risk Factors Hypertension: Yes Dyslipidemia: Yes Peripheral Arterial Disease (PAD): No Myocardial Infarction (HI): Yes Obesity: No Renal Disease: No Tobacco Use: Current/Recent(w/in 1 year) Prior Interventions PCI: Yes CABG: No Valve Surgery: No Report Signatures Finalized by Svitlana Casey MD on 01/30/2023 01:42 PM
[2023-01-13 06:53] LABS: Anion Gap 14.4 (5-19); Blood Urea Nitrogen 25 mg/dL (8-23); Calcium 9.6 mg/dL (8.5-10.5); Carbon Dioxide 33 mmol/L (22-29); Chloride 98 mmol/L (98-107); Glomerular Filtration Rate 85.5 mL/min (90-130); Glucose 86 mg/dL (65-115); Magnesium 2.2 mg/dL (1.7-2.3); Osmolality Calculated 298 mOsm/kg (285-295); Potassium 3.4 mmol/L (3.5-5.1); Sodium 142 mmol/L (136-145)
[2023-01-13 08:10] LABS: Arterial Blood Gas Hematocrit 42.9 % (42-52); Blood Gas Operator Identificat PA; Blood Gas Sample Type Not specified; Carboxyhemoglobin 0.7 %THgb (0.4-20.1); HGB O2 Sat 65.1 % (95-100); Methemoglobin 0.5 % (0.4-1.5); Oxygen Device NC
[2023-01-13 08:11] LABS: Arterial Blood Gas Hematocrit 45.8 % (42-52); Blood Gas Operator Identificat RV; Blood Gas Sample Type Not specified; Carboxyhemoglobin 0.6 %THgb (0.4-20.1); HGB O2 Sat 64.9 % (95-100); Methemoglobin 0.5 % (0.4-1.5); Oxygen Device NC; Total Hemoglobin 14.9 g/dL (14-18)
[2023-01-13 08:13] LABS: Alveolar-Arterial Oxygen Gradi 10.9 mmHg (5-10); Arterial Blood Gas Hematocrit 46.5 % (42-52); Blood Gas Operator Identificat AO; Blood Gas Sample Type Arterial; Carboxyhemoglobin 0.3 %THgb (0.4-20.1); HGB O2 Sat 86.6 % (95-100); Methemoglobin 0.5 % (0.4-1.5); Oxygen Device NC; Total Hemoglobin 15.2 g/dL (14-18)
[2023-01-13 08:15] LABS: Arterial Blood Gas Hematocrit 41.7 % (42-52); Blood Gas Operator Identificat RA; Blood Gas Sample Type Not specified; Carboxyhemoglobin 0.7 %THgb (0.4-20.1); HGB O2 Sat 65.3 % (95-100); Methemoglobin 0.6 % (0.4-1.5); Oxygen Device NC; Total Hemoglobin 13.6 g/dL (14-18)
--- NOTE | 2023-01-13 08:50 | P.PN_ITS ---
Subjective Subjective: He underwent cath today that showed , elevated PCWP and increased RA and mean PA pressure. Patient also developed mild decompensation post cath and was noted to have potassium of 2.4. Medications: Reviewed: Yes Vitals/I&O/Wt Last Vital Signs Temp 98.0 F 01/13/23 04:00 Pulse 70 01/13/23 05:40 Resp 15 01/13/23 04:00 BP 121/67 01/13/23 04:00 Pulse Ox 90 01/13/23 04:00 O2 Del Method Nasal Cannula 01/13/23 04:00 O2 Flow Rate 3 01/12/23 20:30 FiO2 40 01/13/23 02:01 01/12/23 01/13/23 01/13/23 22:59 06:59 14:59 Intake Total 545.833 / 1785.833 0 / 1785.833 0 / 0 Output Total 600 / 1200 600 / 1800 800 / 800 Balance -54.167 / 585.833 -600 / -14.167 -800 / -800 Weight last 48 hrs Weight 285 lb 6.4 oz Weight 286 lb 3 oz Physical Exam Narrative: GENERAL: obese man sitting propped up in bed in no acute distress HEENT: Extraocular movement intact. No pallor or icterus. NECK: central trachea, No JVD, No carotid bruit. short thick neck CARDIOVASCULAR SYSTEM: S1-S2 regular. No murmur rubs or gallops. RESPIRATORY SYSTEM: Chest clear to auscultation. No wheezes rhonchi or rubs he [place]. No use of accessory muscles. ABDOMEN: Soft, nontender and nondistended. Normal bowel sounds present. No hepatosplenomegaly appreciated. EXTREMITIES: No cyanosis or edema (, trace) IT APPLICATION DEVELOPMENT MANAGER: Patient is alert oriented ?3. No focal neurological deficits. SKIN: Normal turgor and temperature. PSYCH: Normal insight and judgment. 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 Plan for medical management Qualifiers: Associated angina: without angina Coronary Disease-Associated Artery/Lesion type: [place] artery [place] vs. transplanted heart: [place] heart Qualified Code(s): I25.10 - Atherosclerotic heart disease of [place] coronary artery without angina pectoris (5) HTN (hypertension): Qualifiers: Hypertension type: essential hypertension Qualified Code(s): I10 - Essential (primary) hypertension (6) Dyslipidemia: (7) MANUELITO (obstructive sleep apnea): (8) PVC (premature ventricular contraction): (9) Smoker: Plan Morbid obesity COPD PHTN likely WHO group 2 and 3: will plan for RHC once diuresed Metabolic alkalosis Hypokalemia: replaced Attestations Medical Necessity Statement*: needs hospital stay for diuresus and potassium replacement Coding Level of Care Code 59316 Diagnoses BRIAN (acute kidney injury) N17.9 Diastolic CHF I50.32 Heart failure chronicity: chronic Chronic respiratory failure J96.10 CAD (coronary artery disease) I25.10 Associated angina: without angina Coronary Disease-Associated Artery/Lesion type: [place] artery [place] vs. transplanted heart: [place] heart HTN (hypertension) I10 Hypertension type: essential hypertension Dyslipidemia E78.5 MANUELITO (obstructive sleep apnea) G47.33 PVC (premature ventricular contraction) I49.3 Smoker F17.200
[2023-01-13 09:05] LABS: Anion Gap 11.5 (5-19); Blood Urea Nitrogen 23 mg/dL (8-23); Calcium 8.5 mg/dL (8.5-10.5); Carbon Dioxide 33 mmol/L (22-29); Chloride 98 mmol/L (98-107); Glomerular Filtration Rate 85.5 mL/min (90-130); Glucose 93 mg/dL (65-115); Osmolality Calculated 293 mOsm/kg (285-295); Sodium 140 mmol/L (136-145)
[2023-01-13 09:14] LABS: Potassium 2.5 mmol/L (3.5-5.1)
[2023-01-13] MEDS: clopidogrel 75 mg Tablet PO (09:14)
[2023-01-13] MEDS: potassium chloride ER 20 mEq Tablet PO ×2 (09:14→18:15)
[2023-01-13] MEDS: montelukast sodium 10 mg Tablet PO (09:14)
[2023-01-13] MEDS: buPROPion XL (24 HR) 300 mg Tablet PO (09:14)
[2023-01-13] MEDS: allopurinol 300 mg Tablet PO ×2 (09:14→18:14)
[2023-01-13] MEDS: magnesium oxide 400 mg tablet PO (09:14)
[2023-01-13] MEDS: aspirin 325 mg Tablet PO (09:14)
[2023-01-13] MEDS: FUROsemide 10 mg/mL SDV 10mL 60 MG IVP (09:15)
[2023-01-13] MEDS: metoprolol tartrate 50 mg Tablet PO ×2 (09:15→21:18)
[2023-01-13] MEDS: amlodipine 10 mg Tablet PO (09:15)
[2023-01-13] MEDS: HYDROcodone-acetaminophen 5-325 mg Tablet 1 TAB PO ×3 (09:33→22:04)
[2023-01-13] MEDS: lidocaine 1% 5 ML in potassium chloride premix 100 ML 26.25 ML IV (11:05)
[2023-01-13 13:21] LABS: Blood Gas Sample Site RV
[2023-01-13 13:22] LABS: Blood Gas Sample Site PA; Blood Gas Sample Site RA
[2023-01-13 13:23] LABS: Blood Gas Sample Site AO
[2023-01-13] MEDS: FUROsemide 40 mg Tablet PO (18:15)
[2023-01-13] MEDS: budesonide 0.5 mg/2 mL Neb INHALATION (19:29)
[2023-01-14] VITALS (12 sets, daily range): BP systolic 97–138; BP diastolic 61–91; PULSE 59–75; RESP 16–18; TEMP 36.6–36.7; O2SAT 92–96
[2023-01-14] MEDS: ipratropium-albuterol 3 mL Neb INHALATION ×2 (02:31→09:11)
[2023-01-14 02:54] LABS: Anion Gap 10.9 (5-19); Blood Urea Nitrogen 21 mg/dL (8-23); Calcium 9.1 mg/dL (8.5-10.5); Carbon Dioxide 37 mmol/L (22-29); Chloride 94 mmol/L (98-107); Glomerular Filtration Rate 75.7 mL/min (90-130); Glucose 94 mg/dL (65-115); Osmolality Calculated 291 mOsm/kg (285-295); Sodium 139 mmol/L (136-145)
[2023-01-14 03:00] LABS: Potassium 2.9 mmol/L (3.5-5.1)
--- NOTE | 2023-01-14 03:10 | PC.NURSE ---
Received telephone orders for K-Adrian with lidocaine 40mEq IVx2 6 hours apart for KCl level of 2.9.
[2023-01-14] MEDS: lidocaine 1% 5 ML in potassium chloride premix 100 ML 26.25 ML IV ×2 (03:54→09:25)
[2023-01-14] MEDS: isosorbide mononitrate ER 30 mg Tablet PO (06:15)
[2023-01-14] MEDS: HYDROcodone-acetaminophen 5-325 mg Tablet 1 TAB PO (06:15)
[2023-01-14] MEDS: budesonide 0.5 mg/2 mL Neb INHALATION (09:11)
[2023-01-14] MEDS: amlodipine 10 mg Tablet PO (09:23)
[2023-01-14] MEDS: spironolactone 25 mg Tablet PO (09:23)
[2023-01-14] MEDS: buPROPion XL (24 HR) 300 mg Tablet PO (09:23)
[2023-01-14] MEDS: metoprolol tartrate 50 mg Tablet PO (09:23)
[2023-01-14] MEDS: clopidogrel 75 mg Tablet PO (09:23)
[2023-01-14] MEDS: aspirin 81 mg EC Tablet PO (09:24)
[2023-01-14] MEDS: allopurinol 300 mg Tablet PO (09:24)
[2023-01-14] MEDS: montelukast sodium 10 mg Tablet PO (09:24)
[2023-01-14] MEDS: potassium chloride ER 20 mEq Tablet 40 MEQ PO (09:24)
[2023-01-14] MEDS: magnesium oxide 400 mg tablet PO (09:24)
[2023-01-14] MEDS: enoxaparin 40 mg/0.4 mL Syringe SUBCUT (09:24)
--- NOTE | 2023-01-14 09:37 | PM.DCS ---
Discharge Providers Date of Admission: 01/11/23 09:25 Date of Discharge: January 14, 2023 Attending Provider at Admission: Svitlana Casey MD Attending Provider at Discharge: Svitlana Casey MD Primary Care Provider: Jose Ramon Salguero NP Diagnoses at Discharge Discharge Diagnosis (1) BRIAN (acute kidney injury): Details from hospital stay: resolved Status: Resolved (2) Diastolic CHF: Status: Acute Qualifiers: Heart failure chronicity: chronic Qualified Code(s): I50.32 - Chronic diastolic (congestive) heart failure (3) Chronic respiratory failure: Status: Acute (4) CAD (coronary artery disease): Status: Acute Qualifiers: Associated angina: without angina Coronary Disease-Associated Artery/Lesion type: [place] artery [place] vs. transplanted heart: [place] heart Qualified Code(s): I25.10 - Atherosclerotic heart disease of [place] coronary artery without angina pectoris (5) HTN (hypertension): Status: Acute Qualifiers: Hypertension type: essential hypertension Qualified Code(s): I10 - Essential (primary) hypertension (6) Dyslipidemia: Status: Acute (7) MANUELITO (obstructive sleep apnea): Status: Acute (8) PVC (premature ventricular contraction): Status: Acute (9) Smoker: Status: Inactive Reason for Visit Reason for Visit: R06.02, I25.10 Brief History: Crow Will is a 62 year old male with?PMHx of hypertension, chronic active smoker 2-3 PPD for 45 years, CAD, h/o NSTEMI in 08/2017 s/p ANNA to mLAD, D2 and LCX, COPD/emphysema, severe MANUELITO/OHS, morbid obesity (BMI>43), chronic respiratory failure, lung nodules,? and RBBB. He also has frequent PVC's? and PSVC. His statin was stopped because of myalgias and arthralgias after cutting back on dose did not help with his symptoms.? He has been having worsening exertional SOB and was noted to have dilated PA on CTA chest and RV dilation on recent echo. Last stress test was about 1 and 1/2 years ago and did not show any ischemia. He was admitted recently and diuresed and treated for COVID-19. He was brought in for elective LHC and labs revealed increased creatinine. Hospital Course Hospital Course He was hydrated and low potassium was replaced. he underwent left and right heart cath that revealed moderate pHTN, elevated RA and PCWP. There were no lesions that underwent intervention. 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 Patent stents in LAD and LCX. Small diagonal with severe diffuse disease not amenable to intervention. Physical Exam Narrative: GENERAL: obese man sitting propped up in bed in no acute distress HEENT: Extraocular movement intact. No pallor or icterus. NECK: central trachea, No JVD, No carotid bruit. short thick neck CARDIOVASCULAR SYSTEM: S1-S2 regular. No murmur rubs or gallops. RESPIRATORY SYSTEM: Chest clear to auscultation. No wheezes rhonchi or rubs heard. No use of accessory muscles. ABDOMEN: Soft, nontender and nondistended. Normal bowel sounds present. No hepatosplenomegaly appreciated. EXTREMITIES: No cyanosis or edema (, trace) CHARGE AUTHORIZER: Patient is alert oriented ?3. No focal neurological deficits. SKIN: Normal turgor and temperature. PSYCH: Normal insight and judgment. 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 request for service Routine Exams 01/13/23 06:18 Taken Laboratory Results WBC 12.07 10^3/uL (3.29-11.43) H 01/11/23 07:07 RBC 5.15 10^6/uL (3.85-5.65) 01/11/23 07:07 Hgb 17.50 g/dL (11.27-16.99) H 01/11/23 07:07 Hct 51.1 % (37-53) 01/11/23 07:07 MCV 99.2 fl (82-101) 01/11/23 07:07 MCH 34.0 pg (27-33) H 01/11/23 07:07 MCHC 34.2 g/dL (30-55) 01/11/23 07:07 RDW 16.0 % (12.1-15.1) H 01/11/23 07:07 Plt Count 246 10^3/cmm (157-399) 01/11/23 07:07 MPV 10.1 fL (7.4-10.4) 01/11/23 07:07 Neut % (Auto) 49.9 % 01/11/23 07:07 Lymph % (Auto) 37.2 % 01/11/23 07:07 [place] % (Auto) 8.8 % 01/11/23 07:07 Eos % (Auto) 3.2 % 01/11/23 07:07 Baso % (Auto) 0.7 % 01/11/23 07:07 Neut # (Auto) 6.02 10^3/uL (1.8-7.7) 01/11/23 07:07 Lymph # (Auto) 4.5 10^3/uL (0.8-4.8) 01/11/23 07:07 [place] # (Auto) 1.1 10^3/uL (0.2-0.9) H 01/11/23 07:07 Eos # (Auto) 0.4 10^3/uL (0.0-0.8) 01/11/23 07:07 Baso # (Auto) 0.1 10^3/uL (0.0-0.1) 01/11/23 07:07 Nucleated RBC % (auto) 0 % 01/11/23 07:07 Nucleated RBCs # 0.0 /100WBC 01/11/23 07:07 Specimen Type Arterial 01/13/23 08:00 Specimen Type Not specified 01/13/23 08:00 Specimen Type Not specified 01/13/23 08:00 Specimen Type Not specified 01/13/23 08:00 Sample Site Ao 01/13/23 08:00 Sample Site Pa 01/13/23 08:00 Sample Site Ra 01/13/23 08:00 Sample Site Rv 01/13/23 08:00 Edgardo Test N/a 01/13/23 08:00 Edgardo Test N/a 01/13/23 08:00 Edgardo Test N/a 01/13/23 08:00 Edgardo Test N/a 01/13/23 08:00 A-a O2 Gradient 10.9 mmHg (5-10) H 01/13/23 08:00 A-a O2 Gradient Not Reportable 01/13/23 08:00 A-a O2 Gradient Not Reportable 01/13/23 08:00 A-a O2 Gradient Not Reportable 01/13/23 08:00 Hematocrit 41.7 % (42-52) L 01/13/23 08:00 Hematocrit 42.9 % (42-52) 01/13/23 08:00 Hematocrit 45.8 % (42-52) 01/13/23 08:00 Hematocrit 46.5 % (42-52) 01/13/23 08:00 Hgb O2 Saturation 64.9 % (95-100) L 01/13/23 08:00 Hgb O2 Saturation 65.1 % (95-100) L 01/13/23 08:00 Hgb O2 Saturation 65.3 % (95-100) L 01/13/23 08:00 Hgb O2 Saturation 86.6 % (95-100) L 01/13/23 08:00 Carboxyhemoglobin 0.3 %THgb (0.4-20.1) L 01/13/23 08:00 Carboxyhemoglobin 0.6 %THgb (0.4-20.1) 01/13/23 08:00 Carboxyhemoglobin 0.7 %THgb (0.4-20.1) 01/13/23 08:00 Carboxyhemoglobin 0.7 %THgb (0.4-20.1) 01/13/23 08:00 Methemoglobin 0.5 % (0.4-1.5) 01/13/23 08:00 Methemoglobin 0.5 % (0.4-1.5) 01/13/23 08:00 Methemoglobin 0.5 % (0.4-1.5) 01/13/23 08:00 Methemoglobin 0.6 % (0.4-1.5) 01/13/23 08:00 Total Hemoglobin 13.6 g/dL (14-18) L 01/13/23 08:00 Total Hemoglobin 14.0 g/dL (14-18) 01/13/23 08:00 Total Hemoglobin 14.9 g/dL (14-18) 01/13/23 08:00 Total Hemoglobin 15.2 g/dL (14-18) 01/13/23 08:00 O2 Delivery Device Nc 01/13/23 08:00 O2 Delivery Device Nc 01/13/23 08:00 O2 Delivery Device Nc 01/13/23 08:00 O2 Delivery Device Nc 01/13/23 08:00 O2 Liters/Min 2.0 % 01/13/23 08:00 O2 Liters/Min 2.0 % 01/13/23 08:00 O2 Liters/Min 2.0 % 01/13/23 08:00 O2 Liters/Min 2.0 % 01/13/23 08:00 FiO2 28.0 % 01/13/23 08:00 FiO2 28.0 % 01/13/23 08:00 FiO2 28.0 % 01/13/23 08:00 FiO2 28.0 % 01/13/23 08:00 Reaming Press Operator ID Ao 01/13/23 08:00 Reaming Press Operator ID Pa 01/13/23 08:00 Reaming Press Operator ID Ra 01/13/23 08:00 Reaming Press Operator ID Rv 01/13/23 08:00 Sodium 139 mmol/L (136-145) 01/14/23 02:19 Potassium 2.9 mmol/L (3.5-5.1) L 01/14/23 02:19 Chloride 94 mmol/L (98-107) L 01/14/23 02:19 Carbon Dioxide 37 mmol/L (22-29) H 01/14/23 02:19 Anion Gap 10.9 (5-19) 01/14/23 02:19 BUN 21 mg/dL (8-23) 01/14/23 02:19 Creatinine 1.0 mg/dL (0.7-1.2) 01/14/23 02:19 GFR Calculation 75.7 mL/min (90-130) L 01/14/23 02:19 Glucose 94 mg/dL (65-115) 01/14/23 02:19 Calculated Osmolality 291 mOsm/kg (285-295) 01/14/23 02:19 Calcium 9.1 mg/dL (8.5-10.5) 01/14/23 02:19 Magnesium 2.0 mg/dL (1.7-2.3) 01/14/23 02:19 NT-Pro-B Natriuret Pep 522 pg/mL (0-125) H 01/12/23 04:12 Vitals Last Vital Signs Temp 98.0 F 01/14/23 07:27 Pulse 75 01/14/23 09:11 Resp 18 01/14/23 09:11 BP 117/75 01/14/23 07:27 Pulse Ox 94 01/14/23 09:11 O2 Del Method Nasal Cannula 01/14/23 09:11 O2 Flow Rate 3.5 01/14/23 09:11 FiO2 40 01/13/23 02:01 Discharge Plan Discharge Patient Disposition: Home Condition: Stable Prescriptions: New metoprolol tartrate 50 mg Tablet 50 mg PO BID@0900,2100 Qty: 180 2RF Continued allopurinol 300 mg tablet 300 mg PO BID bupropion HCl [Wellbutrin XL] 300 mg tablet extended release 24 hr 300 mg PO .1 day cyclobenzaprine 10 mg tablet 10 mg PO TID PRN (Reason: muscle spasm) Qty: 90 1RF aspirin [Adult Low Dose Aspirin] 81 mg tablet,delayed release (DR/EC) 81 mg PO DAILY Qty: 90 2RF nicotine (polacrilex) 2 mg gum 2 mg buccal Q2H PRN (Reason: nicotine cravings) Qty: 50 3RF amlodipine 5 mg tablet 5 mg PO DAILY Qty: 90 3RF albuterol sulfate 2.5 mg /3 mL (0.083 %) solution for nebulization 2.5 mg inhalation Q6H Qty: 180 6RF Spiriva with HandiHaler 18 mcg capsule, w/inhalation device 1 cap inhalation DAILY Qty: 60 6RF Rx Instructions: puncture 1 cap using device; one dose = 2 inhalations magnesium oxide 400 mg magnesium tablet 400 mg PO DAILY PRN (Reason: other) nitroglycerin [Nitrostat] 0.4 mg tablet, sublingual 0.4 mg SUBLINGUAL Q5M PRN (Reason: chest pain) Qty: 25 6RF Rx Instructions: Take one tab sublingual for chest pain every 5 mins up to 3 tabs total lisinopril 10 mg tablet 10 mg PO DAILY Qty: 90 3RF furosemide 40 mg tablet 60 mg PO BID Qty: 270 1RF metolazone 2.5 mg tablet 2.5 mg PO .every other day Qty: 30 0RF clopidogrel 75 mg tablet 75 mg PO QDAY Qty: 90 3RF Ventolin HFA 90 mcg/actuation HFA aerosol inhaler 2 inh inhalation Q8H PRN (Reason: shortness of breath or wheezing) Qty: 8.5 0RF montelukast [Singulair] 10 mg tablet 10 mg PO DAILY Qty: 90 3RF budesonide-formoterol [Symbicort] 80-4.5 mcg/actuation HFA aerosol inhaler 2 puff inhalation BID Qty: 10.2 6RF hydrocodone-acetaminophen 5-325 mg tablet 1 tab PO Q6H PRN (Reason: pain) Qty: 20 0RF Changed Klor-Con M20 20 mEq tablet,ER particles/crystals 40 meq PO BID Qty: 180 2RF Discontinued metoprolol tartrate 50 mg tablet 50 mg PO DIRECTED Rx Instructions: 75mg in the AM 50 mg PM isosorbide mononitrate 30 mg tablet extended release 24 hr 30 mg PO QAM Qty: 90 3RF diltiazem HCl 120 mg capsule,extended release 24hr See Rx Instructions .ROUTE .COMPLEX Qty: 90 1RF Dose Instruction: TAKE ONE CAPSULE BY MOUTH DAILY Rx Instructions: TAKE ONE CAPSULE BY MOUTH DAILY Discharge Orders: Discharge Order (Routine); Ordered 01/14/23 Ordered By: Svitlana Casey Referrals: [facility] [Other] (You can call this number to see if you qualify for in home services. They will ask you a series of questions to determine your needs and amount of time you will be allowed. ) Marjorie Cote FNP [Nurse Practitioner] - 01/18/23 11:00 am Svitlana Casey MD [Physician] - (Your Dr. Casey follow up appointment will be scheduled during your Marjorie Cote appointment. Thank you.) Discharge Diet: Cardiac Discharge Activity: Increase activity as tolerated Patient Instructions: Metoprolol (By mouth) (Lopressor, Toprol XL), Potassium Chloride (By mouth) (K-Dur, K-Xiao, K-Tab, Jamaal Mur), Hypertension, Heart Failure (DC), Coronary Artery Disease (DC), Hypokalemia (DC), Coronary Angioplasty (DC), CHF Stoplight, Opioid Safety, Post Angiogram Home Care Instructions Activity Restrictions/Additional Instructions: Do not lift anything more than 5 lbs for 1 week. Keep the site dry and clean Take medications as prescribed and follow up as scheduled. Discharge Attestations Time Spent in Discharge Care*: less than 30 min Quality Metrics Clinical Quality Measures [ No reported AMI, CVA or VTE this stay] Coding Level of Care Code Acute Code for [facility] Fwd Diagnoses BRIAN (acute kidney injury) N17.9 Diastolic CHF I50.32 Heart failure chronicity: chronic Chronic respiratory failure J96.10 CAD (coronary artery disease) I25.10 Associated angina: without angina Coronary Disease-Associated Artery/Lesion type: [place] artery [place] vs. transplanted heart: [place] heart HTN (hypertension) I10 Hypertension type: essential hypertension Dyslipidemia E78.5 [place] (obstructive sleep apnea) G47.33 PVC (premature ventricular contraction) I49.3 Smoker F17.200
== END 2023-01-14 15:15 | disposition home or self-care (01) | DRG 682 ==
LOC: CSU 01-12 06:10
PROVIDERS: Admitting Provider Internal Medicine Cardiovascular Disease; PCP Nurse Practitioner Family; Visit Provider Internal Medicine Cardiovascular Disease
PROC: B2111ZZ Fluoroscopy of Multiple Coronary Arteries using Low Osmolar Contrast (ICD-10-PCS; principal; 2023-01-13 07:00)
DX: N17.9 Acute kidney failure, unspecified (principal); I50.33 Acute on chronic diastolic (congestive) heart failure; E66.2 Morbid (severe) obesity with alveolar hypoventilation; Z68.41 Body mass index [BMI] 40.0-44.9, adult; E87.3 Alkalosis; J96.12 Chronic respiratory failure with hypercapnia; R06.02 Shortness of breath; I25.10 Atherosclerotic heart disease of native coronary artery without angina pectoris; Z95.5 Presence of coronary angioplasty implant and graft; I11.0 Hypertensive heart disease with heart failure; E78.5 Hyperlipidemia, unspecified; I49.3 Ventricular premature depolarization; F17.200 Nicotine dependence, unspecified, uncomplicated; I25.2 Old myocardial infarction; J43.9 Emphysema, unspecified; R91.8 Other nonspecific abnormal finding of lung field; I45.10 Unspecified right bundle-branch block; Z86.16 Personal history of COVID-19; I27.20 Pulmonary hypertension, unspecified; E86.0 Dehydration; E87.6 Hypokalemia; Z79.891 Long term (current) use of opiate analgesic; Z79.82 Long term (current) use of aspirin
CPT/HCPCS: 36415; 80048; 82810; 83735; 83880; 85025; 93456; 94640; 96372; 96376; 99152; 99153; C1751; C1769; C1887; C1894; J1644; J1650; J1940; J2250; J3010; J3480; J3490; J7030; J7626; Q0163; Q9967

== ENCOUNTER → 2023-01-18 07:54 | Outpatient (BNVA) | payer MEDICAID, SELFPAY | PROVIDERS: PCP Nurse Practitioner Family; Visit Provider Nurse Practitioner Family | DX: I25.10 Atherosclerotic heart disease of native coronary artery without angina pectoris (principal); F17.210 Nicotine dependence, cigarettes, uncomplicated; I11.0 Hypertensive heart disease with heart failure; I50.30 Unspecified diastolic (congestive) heart failure | CPT/HCPCS: 36415; 80048; 99214 ==

== ENCOUNTER → 2023-02-14 13:28 | Outpatient (BNVA) | payer MEDICAID, SELFPAY | PROVIDERS: PCP Nurse Practitioner Family; Visit Provider Internal Medicine Cardiovascular Disease | DX: R06.02 Shortness of breath (principal); I11.0 Hypertensive heart disease with heart failure; I50.32 Chronic diastolic (congestive) heart failure; I49.3 Ventricular premature depolarization; I25.10 Atherosclerotic heart disease of native coronary artery without angina pectoris; E78.5 Hyperlipidemia, unspecified; F17.210 Nicotine dependence, cigarettes, uncomplicated | CPT/HCPCS: 99214 ==

== ENCOUNTER 2023-03-01 13:03 | Outpatient (CLI) | payer MEDICAID, SELFPAY ==
--- NOTE | 2023-03-01 13:00 | CT_ITS ---
WS: [id number] LDCT LUNG CANCER SCREENING HISTORY: Z12.2 - Encounter for screening for malignant neoplasm of... TECHNIQUE: Axial imaging performed from the apices to 1 cm below the costophrenic angles. Coronal and sagittal reformats are submitted with axial MIP series. All CT scans at [facility] use at least one of these dose optimization techniques: automated exposure control; mA and/or kV adjustment per patient size (includes targeted exams where dose is matched to clinical indication); or iterativ e reconstruction. DLP: 145.81 mGy.cm DIvol: Mean CTDIvol: 3.70 (mGy) COMPARISON: 02/01/2022 and 10/26/2017 Diagnostic quality: Satisfactory Lungs: Mild pulmonary hyperexpansion. Reidentified are very small bilateral pulmonary nodules. Some o f these are calcified. The largest measures 5 mm at the LEFT lung base. This nodule was also present in 2018. Other nodules are benign along the fissures. There are no suspicious nodule which is increas ing in size. Heart: Normal size heart with no pericardial effusion.. Other findings: Mild atherosclerosis aorta. Pulmonary artery is dilated to 3.9 cm. No adenopathy. Mil d bilateral gynecomastia. Marked hepatic steatosis within the visualized liver. There is a very tiny LEFT adrenal adenoma. IMPRESSION: CT/CT lung screening 94107 LUNG-RADS: 2-Benign Appearance or Behavior FOLLOW UP: 12 Month: Continue annual screening with LDCT OTHER FINDINGS (S MODIFIER): None.
== END 2023-03-01 13:04 | disposition home or self-care (01) ==
PROVIDERS: PCP Nurse Practitioner Family; Visit Provider Internal Medicine Pulmonary Disease
DX: Z12.2 Encounter for screening for malignant neoplasm of respiratory organs (principal); F17.210 Nicotine dependence, cigarettes, uncomplicated
CPT/HCPCS: 71271